=== PATIENT | female | born 1965 | race Caucasian/White ===

== ENCOUNTER 2024-04-28 12:47 | Outpatient (OUT) | payer BC, SELFPAY | END 2024-04-28 12:48 | disposition home or self-care (01) | LOC: CARD 12:51 | PROVIDERS: PCP Family Medicine; Visit Provider Family Medicine | DX: R00.2 Palpitations (principal); R55 Syncope and collapse | CPT/HCPCS: 93242 ==

== ENCOUNTER 2025-01-06 16:34 | Emergency (ER) | payer BC, SELFPAY ==
--- OUTSIDE RECORDS SUMMARY | 2025-01-06 16:43 | XMS_ITS | CCD ---
Author Organization [facility] Care Team Providers Care Cena Name Role Phone VALARIE WEISS Referring Unavailable KOFFI SEVERINO Primary Care Unavailable Bryan Georges Attending Unavailable Bryan Georges Admitting Unavailable JULIANNA ., DR SANTILLAN Consulting Unavailable HAY ., DR SANTILLAN Attending Unavailable HEMEYER ., DR WREN Primary Care Unavailable HAY ., DR SANTILLAN Admitting Unavailable ASHLY DUNCAN Consulting Unavailable MERE ., DR WREN Admitting Unavailable MERE ., DR WREN Primary Care Unavailable HEMEYER ., DR WREN Consulting Unavailable HEMEYER ., DR WREN Attending Unavailable [place], DR ABRAHAN Mitchell Consulting Unavailable Diamond Mayes Unavailable Mona Bolivar Unavailable KOFFI SEVERINO Primary Care Physician Unavail able KOFFI SEVERINO Referring Unavailable Jak Dixon Attending UnavailJak Perez Admitting UnavailMD Koffi Larson Primary Care Provider DERICK Bonner Attending Provider Cristel Bonner Admitting Unavailable Cristel Bonner Attending Unavailable Koffi Severino Primary Care Unavailable Koffi Severino MD Unavailable Koffi Severino MD Primary Care Provider Koffi Severino MD Unavailable [phone] Koffi Severino MD Primary Care Provider Koffi Severino MD Unavailable Koffi Seevrino MD Primary Care Provider KOFFI SEVERINO Attending Unavailable KOFFI SEVERINO Referring Unavailable KOFFI SEVERINO Referring Unavailable KOFFI SEVERINO Attending Unavailable KOFFI SEVERINO Attending Unavailable KOFFI SEVERINO Referring Unavailable KOFFI SEVERINO Attending Unavailable KOFFI SEVERINO Attending Unavailable KOFFI SEVERINO Attending Unavailable KOFFI SEVERINO Attending Unavailable Allergies Allergy Classification Reported Allergen(s) Allergy Type Date of Onset Reaction(s) Facility (2 sources) ceFAZolin; Translations: [Ancef] Drug Allergy 3 [facility] Repository (1 source) moxifloxacin Drug Allergy 3 [facility] Repository (1 source) Sulfamethoxazole / Trimethoprim Drug Allergy 3 [facility] Repository (19 sources) ceFAZolin; Translations: [cefazolin] Drug Allergy 7 Unknown (qualifier value) [facility] (20 sources) moxifloxacin; Translations: [moxifloxacin] Drug Allergy 7 anaphylaxis, Weal (disorder) [facility] (17 sources) Sulfamethoxazole / Trimethoprim; Translations: [sulfamethoxazole-tr imethoprim] Drug Allergy 7 hives, Weal (disorder) [facility] (1 source) Sulfamethoxazole / Trimethoprim; Translations: [Bactrim] Drug Allergy [facility] Repository (16 sources) Sulfamethoxazole; Translations: [sulfamethoxazole] Drug Allergy 2 [facility] (16 sources) Trimethoprim; Translations: [trimethoprim] Drug Allergy 2 [facility] (1 source) ceFAZolin Drug Allergy 4 [facility] Repository (1 source) moxifloxacin Drug Allergy 4 [facility] Repository (5 sources) metFORMIN Drug Allergy 4 [facility] Medications Current Medications Medication Drug Class(es) Dates Sig (Normalized) Sig (Original) Albuterol (18 sources) beta2-Adrenergic Agonist Start: 07-04-2024 Albuterol Sulfate Active 2 INH INHALATION EVERY 4-6 HOURS 6.7 14 July 04, 2024 12:00am Start: 06-12-2024 albuterol Refi lls(s) 0 Start Date: 06/12/24 Status: Ordered Start: 11-23-2023 take 2 puff(s) by in halation four times daily as needed Albuterol Sulfate HFA 108 (90 Base) MCG/ACT 2 puffs Inhalation 4 times a day prn Nov, Active Start: 06-07-2022 albuterol HFA 90 mcg/act inhaler Inhale 2 puffs in the morning and 2 puffs at noon and 2 puffs in the evening and 2 puffs before bedtime. 2 puffs as needed 4 times a day. 06/07/2022 Active ALPRAZolam 0.5 mg oral tablet (17 sources) Benzodiazepine Start: 04-25-2023 ALPRAZolam (Xa nax) 0.5 MG tablet Indications: Anxiety Take 1 tablet (0.5 mg) by mouth as needed at bedtime for anxiety (anxiety). 30 tablet 04/25/2023 Active amLODIPine 10 mg oral tablet (20 sources) Dihydropyridine Calcium Channel Cesilia Start: 07-04-2024 Amlodipine Active MG PO July 04, 2024 12:00am Start: 04-22-2024 End: 04-19-2025 take 1 tablet by mouth once daily amLODIPine (Norvasc) 10 MG tablet Indications: Benign essential HTN (CMS/HCC) Take 1 tablet (10 mg) by mouth Daily 90 tablet 1 10/21/2024 04/19/2025 Active amLODIPine Besyl ate 10 MG Oral for 90 Days Active aspirin 81 mg delayed release oral tablet (15 sources) Platelet Aggregation Inhibitor, Nonsteroidal Anti-inflammatory Drug Start: 06-12-2024 take 1 tablet by mouth once daily aspirin 81 mg Oral EC Tab 81 mg = 1 tab(s), Oral, Daily, # 30 tab(s), Refills(s) 0 Start Date: 06/12/24 Status: Ordered take 1 tablet by mouth three ashlyn es weekly aspirin 81 MG EC tablet Take 81 mg by mouth 3 (three) times a week. Active azelastine hydrochloride 0.137 mg/actuat metered dose nasal spray (9 sources) Histamine-1 Receptor Antagonist Start: 07-22-2024 End: 07-22-2025 take 1 spray(s) nasal route in the morning azelastine (Astelin) 0.1 % nasal spray Indications: Eustachian tube dysfunction, bilateral Administer 1 spray into each nostril in the morning and 1 spray before bedtime. Use in each nostril as directed. 30 mL 07/22/2024 07/22/2025 Active Calcium (2 sources) Phosphate Binder, Calcium Start: 06-12-2024 calcium (as carbonate) 500 mg oral tablet Refills(s) 0 Start Date: 06/12/24 Status: Ordered calcium citrate 1040 mg oral tablet (13 sources) take 1 tablet by mouth twice daily in the morning calcium citrate 1040 MG tablet Take 250 mg by mouth in the morning and 250 mg before bedtime. 1 tablet two times daily, orally. Active cholecalciferol 0.25 mg oral tablet (13 sources) Vitamin D take 1 tablet by mouth in the morning cholecalciferol (Vitamin D-3) 250 MCG (72450 UT) tablet Take 10,000 Units by mouth in the morning. Active diphenhydrAMINE hydrochloride 25 mg oral tablet (1 source) Histamine-1 Receptor Antagonist take 1 tablet by mouth every twenty-four hours Benadryl Allergy 25 MG 1 tablet at bedtime as needed Orally Once a day Active esomeprazole 20 mg delayed release oral capsule (13 sources) Proton Pump Inhibitor take 2 capsules by mouth before mealtime esomeprazole (NexIUM) [address] capsule Take 40 mg by mouth in the morning. Take before meals. Do not open capsule.. Active Fluocinonide (12 sources) Corticosteroid Start: 06-12-2024 fluocinonide Top 0.05% Crm 15 gram Refill(s) 0 Start Date: 06/12/24 Status: Ordered Start: 10-30-2023 End: 10-29-2024 fluocinonide (Lidex) 0.05 % cream Indications: Eczema of both hands Apply topically 2 (two) times a day 60 g 1 10/30/2023 10/29/2024 Active gabapentin 300 mg oral capsule (15 sources) Anti-epileptic Agent Start: 04-01-2024 gabapenti n (Neurontin) 300 MG capsule Indications: Right sided sciatica Take 1-2 capsules nightly 60 capsule 04/01/2024 Active gemfibrozil 600 mg oral tablet (20 sources) Peroxisome Proliferator Receptor alpha Agonist Start: 07-04-2024 Gemfibrozil Activ e MG PO July 04, 2024 12:00am Start: 04-22-2024 End: 04-19-2025 take 1 tablet by mouth in the morning gemfibrozil (Lopid) 600 MG tablet Indications: Mixed dyslipidemia (CMS/HCC) Take 1 tablet (600 mg) by mouth in the morning and 1 tablet (600 mg) before bedtime. 180 tablet 1 10/21/2024 04/19/2025 Active Gemfibrozil 600 MG 1 tablet 30 minutes before morning and evening meals Orally Twice a day for 90 days Active hydrocortisone 10 mg/ml / neomycin 3.5 mg/ml / polymyxin b 50049 unt/ml otic suspension (6 sources) Aminoglycoside Antibacterial, Polymyxin-class Antibacterial, Corticosteroid Start: 07-22-2024 End: 10-21-2024 fsozjzzy-aukepikqt-acphpufxr isone (Cortisporin) 3.5-43762-1 otic suspension Indications: Infective Otitis Externa Apply 3 drops to affected ear 3 times daily for 7 days 10 mL 07/22/2024 10/21/2024 Discontinued (Therapy completed) lisinopril 40 mg oral tablet (20 sources) Angiotensin Converting Enzyme Inhibitor Start: 10-21-2024 take 1 tablet by mouth once daily lisinopril 40 MG tablet Indications: Benign essential HTN (CMS/HCC) Take 1 tablet (40 mg) by mouth Daily 90 tablet 1 10/21/2024 Active Start: 07-23-2024 take 1 tablet by kurtis th once daily lisinopril 40 MG tablet Indications: Benign essential HTN (CMS/HCC) TAKE 1 TABLET BY MOUTH ONCE DAILY SAME TIME EACH DAY 90 tablet 1 07/23/2024 Active Start: 07-04-2024 Lisinopril Act leigha MG PO July 04, 2024 12:00am Start: 04-22-2024 End: 10-21-2024 take 1 tablet by mouth once daily lisinopril 40 MG tablet Indications: Benign essential HTN (CMS/HCC) Take 1 tablet (40 mg) by mouth 1 (one) time each day at the same time 90 tablet 1 07/22/2024 07/23/2024 Discontinued take 1 tablet by kurtis th once daily Lisinopril 40 MG take 1 tablet by mouth once daily Oral for 90 Days Active magnesium oxide 400 mg oral tablet (15 sources) Start: 06-12-2024 magnesium oxid e 400 mg Tab Refills(s) 0 Start Date: 06/12/24 Status: Ordered metFORMIN hydrochloride 500 mg oral tablet (18 sources) Biguanide Start: 07-22-2024 End: 10-21-2024 take 1 tablet by mouth in the morning metFORMIN (Glucophage) 1000 MG tablet Indications: Type 2 diabetes mellitus with hyperglycemia, without long-term current use of insulin (CMS/HCC) Take 1 tablet (1,000 mg) by mouth in the morning and 1 tablet (1,000 mg) in the evening. Take with meals. 60 tablet 07/22/2024 10/21/2024 Discontinued (Therapy completed) Start: 07-22-2024 End: 10-21-2024 take 1 tablet by mouth in the morning metFORMIN (Glucophage) 500 MG tablet Indications: Type 2 diabetes mellitus with hyperglycemia, without long-term current use of insulin (CMS/HCC) Take 1 tablet (500 mg) by mouth in the morning and 1 tablet (500 mg) in the evening. Take before meals. 60 tablet 07/22/2024 10/21/2024 Discontinued (Therapy completed) Start: 07-22-2024 End: 10-21-2024 take 1 tablet by mouth in the morning metFORMIN (Glucophage) 850 MG tablet Indications: Type 2 diabetes mellitus with hyperglycemia, without long-term current use of insulin (CMS/HCC) Take 1 tablet (850 mg) by mouth in the morning and 1 tablet (850 mg) in the evening. Take before meals. 60 tablet 07/22/2024 10/21/2024 Discontinued (Therapy completed) methylPREDNISolone 4 mg oral tablet (7 sources) Corticosteroid Start: 07-04-2024 End: 07-22-2024 methylPREDNISolone (Medrol Dospak) 4 MG tablets Take 4 mg by mouth 07/04/2024 Active Start: 08-15-2023 methylPREDNISo lone 4 MG as directed Orally for daily dose take half with breakfast, half with dinner for 6 days Jul, Active metoprolol tartrate 100 mg oral tablet (20 sources) beta-Adrenergic Cesilia Start: 07-04-2024 Metopr olol Tartrate Active MG PO July 04, 2024 12:00am Start: 04-22-2024 End: 04-19-2025 take 1 tablet by mouth in the morning metoprolol tartrate (Lopressor) 100 MG tablet Indications: Benign essential HTN (CMS/HCC) Take 1 tablet (100 mg) by mouth in the morning and 1 tablet (100 mg) before bedtime. 180 tablet 1 10/21/2024 04/19/2025 Active take 1 tablet by kurtis th every twelve hours Metoprolol Tartrate 100 MG 1 tablet with food Orally Twice a day for 90 days Active omeprazole 20 mg delayed release oral capsule (2 sources) Proton Pump Inhibitor Start: 06-12-2024 omeprazole 20 mg Cap-DR Refills(s) 0 Start Date: 06/12/24 Status: Ordered pioglitazone 30 mg oral tablet (5 sources) Peroxisome Proliferator Receptor alpha Agonist, Peroxisome Proliferator Receptor gamma Agonist, Thiazolidinedione Start: 10-21-2024 End: 01-19-2025 take 1 tablet by mouth once daily pioglitazone (Actos) 30 MG tablet Indications: Type 2 diabetes mellitus with hyperglycemia, without long-term current use of insulin (CMS/HCC) Take 1 tablet (30 mg) by mouth Daily 90 tablet 10/21/2024 01/19/2025 Active potassium chloride 20 meq extended release oral tablet (2 sources) take 1 tablet by mouth every twenty-four hours Potassium Chloride ER 20 MEQ 1 tablet with food Orally Once a day for 90 days Active predniSONE 20 mg oral tablet (1 source) Start: 11-23-2023 take 1 tablet by mouth every twelve hours predniSONE 20 MG 1 tablet Orally bid for 5 day(s) Nov, Active spironolactone 25 mg oral tablet (20 sources) Aldosterone Antagonist Start: 07-04-2024 Spironolactone Active MG PO July 04, 2024 12:00am Start: 04-22-2024 End: 04-19-2025 take 1 tablet by mouth in the morning spironolactone (Aldactone) 25 MG tablet Indications: Benign essential HTN (CMS/HCC) Take 1 tablet (25 mg) by mouth in the morning and 1 tablet (25 mg) before bedtime. 180 tablet 1 10/21/2024 04/19/2025 Active take 1 tablet by kurtis th every twenty-four hours Spironolactone 25 MG 1 tablet Orally Once a day for 90 days Active sucralfate 1000 mg oral tablet (15 sources) Aluminum Complex Start: 06-12-2024 sucralfate 1 g Tab Refills(s) 0 Start Date: 06/12/24 Status: Ordered Start: 10-30-2023 sucralfate (Ca rafate) 1 g tablet Indications: Gastroesophageal reflux disease without esophagitis Dissolve 1 tablet in 2 oz water. Take 30 minutes before meals 3 times daily and at bedtime 120 tablet 10/30/2023 Active valACYclovir 1000 mg oral tablet (1 source) Herpesvirus Nucleoside Analog DNA Polymerase Inhibitor, Herpes Simplex Virus Nucleoside Analog DNA Polymerase Inhibitor, Herpes Zoster Virus Nucleoside Analog DNA Polymerase Inhibitor Start: 08-15-2023 take 2 tablets by mouth once valACYclovir HCl 1 GM 2 tablet Orally once for 1 days Jul, Active Vitamin D (2 sources) Start: 06-12-2024 Vitamin D Refills(s) 0 Start Date: 06/12/24 Status: Ordered Completed/Discontinued Medications Medication Drug Class(es) Dates Sig (Normalized) Sig (Original) azithromycin 250 mg oral tablet (6 sources) Macrolide Antimicrobial Start: 07-04-2024 End: 07-22-2024 take 1 tablet by mouth once daily azithromycin (Zithromax) 250 MG tablet Take 250 mg by mouth Daily 07/04/2024 07/22/2024 Discontinued (Therapy completed) Start: 07-04-2024 Azithromycin A ctive 0 PO .COMPLEX July 04, 2024 12:00am For 250 mg dose pack: take 500 mg today (day 1), then 250 mg for 4 days (days 2-5) PO clarithromycin 500 mg oral tablet (2 sources) Macrolide Antimicrobial Start: 11-30-2024 End: 12-07-2024 take 1 tablet by mouth in the morning clarithromycin (Biaxin) 500 MG tablet Indications: Bronchitis Take 1 tablet (500 mg) by mouth in the morning and 1 tablet (500 mg) before bedtime. Do all this for 7 days. 14 tablet 11/30/2024 12/07/2024 homatropine methylbromide 0.3 mg/ml / HYDROcodone bitartrate 1 mg/ml oral solution (7 sources) Opioid Agonist, Cholinergic Muscarinic Agonist Start: 11-30-2024 End: 12-07-2024 HYDROcodone Bit-Homatrop MBr (Hydromet) 5-1.5 MG/5ML solution Indications: Cough Take 5 mL by mouth 4 (four) times a day as needed (cough) for up to 7 days 120 mL 11/30/2024 12/07/2024 Start: 07-04-2024 Hydrocodone-Ho matropine Active ML PO July 04, 2024 12:00am Start: 07-02-2024 End: 07-09-2024 HYDROcodone Bit-Homatrop MBr (Hydromet) 5-1.5 MG/5ML solution Indications: Cough Take 5 mL by mouth 4 (four) times a day as needed (cough) for up to 7 days 120 mL 07/02/2024 07/09/2024 Problems Active Problems Problem Classification Problem Date Documented Date Episodic/Chronic Anxiety disorders (13 sources) Panic disorder without agoraphobia; Translations: [Panic disorder [episodic paroxysmal anxiety]] Onset: 04-25-2023 04-25-2023 Chronic Cardiac and circulatory congenital anomalies (1 source) Atrial septal defect; Translations: [Atrial septal defect] Onset: 12-04-2018 Chronic Cardiac dysrhythmias (13 sources) Tachycardia-bradycar jordan; Translations: [Sick sinus syndrome] Onset: 05-14-2024 05-14-2024 Chronic Chronic obstructive pulmonary disease and bronchiectasis (6 sources) Bronchitis; Translations: [Bronchitis, not specified as acute or chronic] 07-04-2024 Episodic Diabetes mellitus with complications (20 sources) Hyperglycemia due to type 2 diabetes mellitus; Translations: [Type 2 diabetes mellitus with hyperglycemia] Onset: 05-17-2021 Resolved: 04-09-2024 04-25-2023 Chronic Disorders of lipid metabolism (20 sources) Hyperlipidemia, unspecified; Translations: [Dyslipidemia] Onset: 04-18-2017 Resolved: 04-09-2024 04-25-2023 Chronic E Codes: Struck by; against (1 source) Walked into wall, initial encounter; Translations: [WALKED INTO WALL INITIAL ENCOUNTER] Onset: 04-12-2023 Episodic Esophageal disorders (20 sources) Gastro-esophageal reflux disease without esophagitis; Translations: [Gastroesophageal reflux disease without esophagitis] Onset: 07-17-2017 04-25-2023 Chronic Essential hypertension (19 sources) Essential (primary) hypertension; Translations: [Benign essential hypertension] Onset: 04-12-2023 04-25-2023 Chronic Genitourinary congenital anomalies (13 sources) Congenital stricture of urethra; Translations: [Congenital stricture of urethra] Onset: 04-25-2023 04-25-2023 Chronic Malaise and fatigue (13 sources) Fatigue; Translations: [Chronic fatigue, unspecified] Onset: 04-25-2023 04-25-2023 Chronic Mood disorders (13 sources) Severe recurrent major depression without psychotic features; Translations: [Major depressive disorder, recurrent severe without psychotic features] Onset: 04-25-2023 04-25-2023 Chronic Nutritional deficiencies (13 sources) Vitamin D deficiency; Translations: [Vitamin D deficiency, unspecified] Onset: 04-25-2023 04-25-2023 Chronic Other aftercare (1 source) 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; Translations: [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 ASPIRIN] Onset: 04-12-2023 Episodic Other aftercare (1 source) Other intermission coordinator (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 therapy; Translations: [OTH COAL DUMPING EQUIPMENT OPERATOR CURRENT DRUG THERAPY] Onset: 04-12-2023 Episodic Other aftercare (19 sources) Polypharmacy ; Translations: [Other care home (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 therapy] Onset: 12-04-2020 10-29-2023 Episodic Other connective tissue disease (3 sources) Pain in right hand; Translations: [PAIN IN RIGHT HAND] Onset: 04-11-2023 Episodic Other ear and sense organ disorders (2 sources) Acute infective otitis externa; Translations: [Other infective otitis externa, left ear] 07-22-2024 Episodic Other lower respiratory disease (2 sources) Cough; Translations: [Acute cough] 11-30-2024 Episodic Other nervous system disorders (13 sources) Piriformis syndrome; Translations: [Lesion of sciatic nerve, unspecified lower limb] Onset: 04-25-2023 04-25-2023 Chronic Other nutritional; endocrine; and metabolic disorders (13 sources) Metabolic syndrome X; Translations: [Metabolic syndrome] Onset: 04-25-2023 04-25-2023 Chronic Other nutritional; endocrine; and metabolic disorders (17 sources) Obesity caused by energy imbalance; Translations: [Other obesity due to excess calories] Onset: 04-25-2023 04-25-2023 Chronic Otitis media and related conditions (2 sources) Dysfunction of bilateral eustachian tubes; Translations: [Unspecified Eustachian tube disorder, bilateral] 07-22-2024 Episodic Sprains and strains (1 source) Unspecified sprain of right wrist, initial encounter; Translations: [UNSPECIFIED SPRAIN RT WRIST INITIAL] Onset: 04-12-2023 Episodic Substance-related disorders (20 sources) Nicotine dependence, cigarettes, uncomplicated; Translations: [Cigarette smoker ] Onset: 04-12-2023 04-25-2023 Chronic Superficial injury; contusion (2 sources) Contusion of right hand, initial encounter; Translations: [Abrasion of right hand, initial encounter] Onset: 04-12-2023 Episodic Transient cerebral ischemia (1 source) Transient cerebral ischemic attack, unspecified; Translations: [Transient cerebral ischemic attack, unspecified] Onset: 12-04-2018 Chronic Unclassified (1 source) Cough, unspecified; Translations: [Cough, unspecified] Onset: 07-04-2024 Viral infection (1 source) Herpesviral vesicular dermatitis Episodic Past or Other Problems Problem Classification Problem Date Documented Da te Episodic/Chronic Abdominal hernia (13 sources) Hiatal hernia; Translations: [Diaphragmatic hernia without obstruction or gangrene] Onset: 04-25-2023 04-25-2023 Episodic Fluid and electrolyte disorders (15 sources) Hypokalemia; Translations: [Hypokalemia] Onset: 04-25-2023 04-25-2023 Episodic Other bone disease and musculoskeletal deformities (13 sources) Osteopenia; Translations: [Other specified disorders of bone density and structure, unspecified site] Onset: 04-25-2023 04-25-2023 Episodic Other connective tissue disease (13 sources) Calcaneal spur of left foot; Translations: [Calcaneal spur, left foot] Onset: 04-25-2023 04-25-2023 Episodic Other lower respiratory disease (4 sources) Cough; Translations: [Cough] 07-04-2024 Episodic Other screening for suspected conditions (not mental disorders or infectious disease) (4 sources) Encounter for screening mammogram for malignant neoplasm of breast; Translations: [ENC SCR MAMMO MALIG NEOPLASM BREAST] Onset: 04-27-2022 Episodic Other upper respiratory infections (4 sources) Acute sinusitis, unspecified; Translations: [Acute pharyngitis, unspecified] Episodic Residual codes; unclassified (1 source) Family history of malignant neoplasm of digestive organs; Translations: [FAM DAVE MALIG NEOPLASM DIGESTIV ORGN] Onset: 05-03-2022 Episodic Unclassified (2 sources) Suspected COVID-19 virus infection Z20.822 Unclassified (1 source) Acute cough R05.1 Viral infection (1 source) COVID-19 Results Test Name Value Interpretation Reference Range Facility HEMOGLOBIN A1con 10-21-2024 HEMOGLOBIN A1c 7.4 % of total Hgb High <5.7 Qu est Diagnostics Comment on above: Order Comment: FASTI NG:NO FASTING: NO Result Comment: For someone without known diabetes, a hemoglobin A1c value of 6.5% or greater indicates that they may have diabetes and this should be confirmed with a follow-up test. For someone with known diabetes, a value <7% indicates that their diabetes is well controlled and a value greater than or equal to 7% indicates suboptimal control. A1c targets should be individualized based on duration of diabetes, age, comorbid conditions, and other considerations. Currently, no consensus exists regarding use of hemoglobin A1c for diagnosis of diabetes for children. Performed By: #### [id number] #### [facility] [address], [address] [place] [address] Fiscal Specialist: Conrado Pace MD No Panel InformationOrdered By: Cristel Loja on 07-04-2024 Quick Strep (POC) [facility] XR chest 2V*on 07-04-2024 XR chest 2V* [facility] [place] [address] XRay Report Signed Patient: Lula Yo MR#: [id number] 15 : 1965 Acct:[id number] Age/Sex: 58 / F ADM Date: 07/04/24 Loc: [facility]DUCLY [facility]: [facility] Attending Dr: Cristel Loja - DERICK Copies to: Cristel Loja APRN Ordering Provider: Cristel Loja APRN Date of Service: 07/04/24 XR/XR chest 2V*: COUGH XR chest 2V* 07/04/2024 1:46 PM SIGNS AND SYMPTOMS: Productive cough, fatigue, chest congestion, upper back pain PROTOCOL: Frontal and lateral radiograph of the chest COMPARISON: None FINDINGS: The trachea is midline. The heart and mediastinal structures are within normal limits. The lung parenchyma is clear. The bony thorax is intact. Degenerative changes are noted in the thoracic spine. XR/XR chest 2V* IMPRESSION: No acute cardiopulmonary pathology. Impression dictated by: Jag Ramirez M.D.07/04/2024 2:11 PM Dictation Location: [place] [address] Transcribed By: IMELDA 07/04/241410 Dictated By: Jag Ramirez II, MD 07/04/241410 Signed By: 07/04/24 141 Normal [facility] Physician [facility] BI MAMMOGRAM SCREENING BILAT [facility] 06-16-2024 BI MAMMOGRAM SCREENING BILATERAL This is a summary report. The complete report is available in the patient's medical record. If you cannot access the medical record, please contact the sending organization for a detailed fax or copy. EXAMINATION: BI MAMMOGRAM SCREENING BILATERAL CLINICAL HISTORY:screening mammogram COMPARISON: May 01, 2023. RESULT: Density: Almost entirely fatty [1] Overall appearance is stable. Typically benign calcifications. There is no suspicious mass, asymmetry, architectural distortion, or calcification IMPRESSION: BIRADS 2 - Benign. Follow-up: Routine Screening Mamm Board Certified Radiologists. Accredited by the ACR and FDA. MAMMOGRAPHY IS VERY IMPORTANT TO YOUR HEALTH. THE [employer] GUIDELINES RECOMMEND THAT WOMEN 40 YEARS OF AGE AND OLDER SHOULD HAVE A MAMMOGRAM EVERY YEAR. A REMINDER LETTER WILL BE SENT AT THE APPROPRIATE TIME. THIS FACILITY UTILIZES A REMINDER SYSTEM TO ENSURE ALL PATIENTS RECEIVE REMINDER NOTIFICATIONS AT THE APPROPRIATE TIME BASED ON THE RECOMMENDATIONS OF THIS EXAM. THIS INCLUDES REMINDERS FOR ROUTINE SCREENING MAMMOGRAMS, DIAGNOSTIC MAMMOGRAMS IN WHICH THE PATIENT IS ASKED TO RETURN FOR ADDITIONAL VIEWS, OR OTHER BREAST IMAGING INTERVENTIONS WHEN APPROPRIATE. THE PATIENT WILL BE PLACED IN THE APPROPRIATE REMINDER SYSTEM INCLUDING A REMINDER AT THE APPROPRIATE TIME FOR ANY PENDING ADDITIONAL VIEWS. TRANSCRIBED BY: ELECTRONICALLY SIGNED BY: Claudy Salinas MD Normal Not Available [facility] and Vascular Office/Cl in Noteon 06-13-2024 [facility] V[facility] Office/Clinic Note [facility] V[facility] Office/Clinic Note Chief Complaint New patient- Palpitations, Tachycardia History of Present Illness The patient presents for evaluation of palpitations. The patient has been utilizing a heart monitor for several days due to persistent palpitations, a condition she has been managing for several years. She has prediabetes. She experiences occasional episodes of lightheadedness, not even once a week. A stress test and echocardiogram were conducted several years ago, revealing a diagnosis of PFO. She denies any history of stroke. She experiences occasional shortness of breath with exertion, particularly when ascending stairs, and occasional chest tightness with exertion as well as at rest. She smokes about a pack a day. She is currently on metoprolol for hypertension management and gemfibrozil for high triglycerides management. Review of Systems PHQ Score Initial Depression Screen Score: 0 SCORE Constitutional: no fever, no sweats, no weakness Skin: no rash, no lesions, no bruising/petechiae ENMT: no sore throat, no congestion, no hoarseness Respiratory: Positive for shortness of breath with exertion. No cough, no orthopnea, no wheezing Cardiovascular: Positive for occasional chest tightness with exertion. No chest pain, no palpitations, no edema Gastrointestinal: no nausea, no vomiting, no diarrhea, no GI bleeding Genitourinary: no anuria/oliguria no hematuria Musculoskeletal: no back pain, no trauma Neurologic: Positive for lightheadedness. No headache, no numbness, no weakness Psychiatric: no sleeping problems, no irritability, no anxiety/depression. Heme/Lymph: no bleeding tendency, no bruising tendency Allergy/Immunologic : no recurrent infections, no impaired immunity Additional ROS info: Except as noted in the above Review of Systems and in the History of Present Illness all other systems have been reviewed and are negative or noncontributory Physical Exam Vitals & Measurements HR: 60(Peripheral) RR: 18 BP: 132/76 SpO2: 96% HT: 66 in HT: 168 cm WT: 97.4 kg WT: 214.28 lb BMI: 34.51 General: alert, no acute distress Skin: warm, dry intact Head: atraumatic, normocephalic Neck: trachea midline, no JVD, no bruit Eye: normal conjunctiva, sclera clear ENMT: oral mucosa moist Cardiovascular: regular rate and rhythm, no murmur, normal peripheral perfusion Respiratory: lungs CTA, respirations non labored Chest wall: no deformity. Gastrointestinal: soft, non-distended, no tenderness, no guarding. Back: no tenderness, normal ROM, normal alignment. Extremities: no edema, no deformity, no trauma Neurological: oriented x 4, LOC appropriate for age, sensation equal & normal bilaterally, speech normal Psychiatric: cooperative, affect appropriate for age, normal judgement, normal psychiatric thoughts. Assessment/Plan Palpitations. The patient's Holter monitor results were not overly concerning, with an average heart rate of 62. Notably, she experienced 13 instances of tachycardia, with one episode lasting 18 seconds. An echocardiogram and a treadmill nuclear stress test have been ordered. The patient has been advised to cease smoking. A follow-up appointment is scheduled for 6 weeks from now. ATTESTATION: Documentation services were performed after patient or guardian consented to allow [employer] to record this visit. [employer] environmental air specialist and provider reviewed before signing. TANIA: Romaine Ramirez Portions of this record may have been created with voice recognition artificial intelligence software, specifically [employer], [email or web address] and or [employer] Substitutions may have occurred due to the inherent limitations of voice recognition and artificial intelligence software. Follow-up No qualifying data available Problem List/Past Medical History Ongoing No qualifying data Historical No qualifying data Procedure/Surgical History Carpal tunnel, delivery, Foot, Gall bladder, Hernia, Tonsillectomy. Medications albuterol amLODIPine 10 mg Tab aspirin 81 mg Oral EC Tab, 81 mg= 1 tab(s), Oral, Daily calcium (as carbonate) 500 mg oral tablet fluocinonide Top 0.05% Crm 15 gram gabapentin 300 mg Cap gemfibrozil 600 mg Tab lisinopril 40 mg Tab, 40 mg= 1 tab(s), Oral, Daily magnesium oxide 400 mg Tab metoprolol tartrate 100 mg Tab omeprazole 20 mg Cap-DR spironolactone 25 mg Tab, 25 mg= 1 tab(s), Oral, Daily sucralfate 1 g Tab Vitamin D Xanax 0.5 mg Tab, 0.5 mg= 1 tab(s), Oral, TID, PRN Allergies Ancef (Unknown) Bactrim (Hives) moxifloxacin (Swelling, Hives) Family History Diabetes mellitus type 2: Mother and Father. Glucoma: Father. Hypertension: Mother and Father. Pacemaker catheter: Mother. Parkinsons disease: Father. Normal [facility] Comment on above: Result Comment: Elec tronically Signed By: Zack WOODARDJak\.br\Date and Time Signed: 06/13/24 10:45 EDT\.br\Electronically Co-Signed By: Sarah Garcia\.br\Date and Time Co-Signed: 06/12/24 16:[address] ABDOMEN W IV CONTRASTon 0 02-20-2024 CT ABDOMEN W IV CONTRAST EXAMINATION: CT ABDOMEN W IV CONTRAST HISTORY: flank and abd pain, normal XR COMPARISON: None TECHNIQUE: Contiguous axial CT sections of the abdomen and pelvis were obtained after IV contrast administration of 100 mL of Iopamidol, Isovue-300. Sagittal and coronal reformats have been obtained. All CT scans at this facility use dose modulation, iterative reconstruction, and/or weight based dosing when appropriate to reduce radiation dose to as low as reasonably achievable. FINDINGS Lung bases:Visualized lung bases show no significant pathology Liver: There is diffuse decreased attenuation of the liver consistent with fatty infiltration, steatosis. There are no focal solid or cystic lesions. There is no intra or extrahepatic bile duct dilatation. Gallbladder: There are surgical clips in the gallbladder fossa. Spleen: There are no focal lesions or calcifications in the spleen. There is no splenomegaly Pancreas: The pancreas is normal in size and attenuation without focal lesions or dilatation of the pancreatic duct. Adrenal glands are negative. Kidneys: There are no solid renal lesions. There are prompt bilateral nephrograms after IV contrast administration with prompt excretion into nondilated collecting systems. There is no hydroureter. Bowel: There is no bowel dilatation or evidence of diverticulitis. Appendix: The appendix is unremarkable. Nodes: No lymphadenopathy. Aorta: There is no abdominal aortic aneurysm. Peritoneum: No free fluid or free air. Abdominal wall: The abdominal wall is intact. Bones :There are no acute osseous changes. Soft tissues: The soft tissues are unremarkable. IMPRESSION: No acute intra-abdominal changes. ELECTRONICALLY SIGNED BY: Kaden Nguyen MD Normal Not Available XR ABDOMEN 1 VIEWon 01-30-20 XR ABDOMEN 1 VIEW XR CHEST 2 VIEWS, XR ABDOMEN 1 VIEW : 01/30/2024 9:03 AM CLINICAL HISTORY: Right flank Pain up into right lower lung field. COMPARISON: None available. TECHNIQUE: ROUTINE FINDINGS: Chest x-ray no consolidating pneumonia, pneumothorax or pleural effusion is seen. The cardiac silhouette is within normal limits. Degenerative changes are seen in the dorsal spine. ABDOMEN: No dilated loops of bowel are seen on this examination. There is fecal material and bowel gas seen down to the pelvis. Surgical clips are seen in the right upper quadrant of the abdomen most likely representing cholecystectomy. No definitive calcifications are seen projecting over the right renal shadow. Projecting over the superior pole of the left renal shadow is a 3 to 4 mm density. Lateral to the superior pole of the kidney there our curvilinear calcifications. These could be in the spleen. In the pelvis there are rounded densities seen on the right and appear to have lucent centers. These are thought to be phleboliths. IMPRESSION: 1. NO ACUTE CARDIOPULMONARY PROCESS 2. THERE MAY BE A SMALL CALCIFICATION IN THE LEFT KIDNEY. NO DEFINITIVE CALCIFICATIONS SEEN PROJECTING OVER THE LEFT KIDNEY. THE BOWEL GAS PATTERN IS NONOBSTRUCTIVE, NONSPECIFIC ELECTRONICALLY SIGNED BY: Nathalia James, Normal Not Available XR CHEST 2 VIEWSon XR CHEST 2 VIEWS XR CHEST 2 VIEWS, XR ABDOMEN 1 VIEW : 01/30/2024 9:03 AM CLINICAL HISTORY: Right flank Pain up into right lower lung field. COMPARISON: None available. TECHNIQUE: ROUTINE FINDINGS: Chest x-ray no consolidating pneumonia, pneumothorax or pleural effusion is seen. The cardiac silhouette is within normal limits. Degenerative changes are seen in the dorsal spine. ABDOMEN: No dilated loops of bowel are seen on this examination. There is fecal material and bowel gas seen down to the pelvis. Surgical clips are seen in the right upper quadrant of the abdomen most likely representing cholecystectomy. No definitive calcifications are seen projecting over the right renal shadow. Projecting over the superior pole of the left renal shadow is a 3 to 4 mm density. Lateral to the superior pole of the kidney there our curvilinear calcifications. These could be in the spleen. In the pelvis there are rounded densities seen on the right and appear to have lucent centers. These are thought to be phleboliths. IMPRESSION: 1. NO ACUTE CARDIOPULMONARY PROCESS 2. THERE MAY BE A SMALL CALCIFICATION IN THE LEFT KIDNEY. NO DEFINITIVE CALCIFICATIONS SEEN PROJECTING OVER THE LEFT KIDNEY. THE BOWEL GAS PATTERN IS NONOBSTRUCTIVE, NONSPECIFIC ELECTRONICALLY SIGNED BY: Nathalia James, Normal Not Available COVID/FLU/RSV RT-PCRon 11-23 SARS-CoV-2 (COVID-19) RNA ALYSSA+probe Ql (Unsp spec) Positive [employer] Other COVID/FLU/RSV RT-PCR Negative [employer] Other COVID + FLU Quick Testingon 08-15-2023 SARS-CoV-2 (COVID-19) RNA ALYSSA+probe Ql (Unsp spec) Negative [employer] Other COVID + FLU Quick Testing Negative [employer] Other Quick Strepon 08-15-2023 S. pyogenes Org specific cx Ql (Throat) Negative [employer] Other Quick Strep [employer] Other XR HAND RT MIN 3Von 04-11-20 23 XR HAND RT MIN 3V EXAM: XR WRIST RT MIN 3 V, XR HAND RT MIN 3V HISTORY: Injury of right wrist COMPARISON: None. TECHNIQUE: 3 views of the right hand, 3 views of the right wrist are performed. FINDINGS: The bones appear slightly demineralized. There is no acute fracture. The bony structures are intact. There is mild joint space narrowing along the radial aspect of the wrist. Normal soft tissues. IMPRESSION: No acute bony abnormality. Electronically authenticated by: ASHLY DUNCAN Date: 2023-04-10 23:14 Normal [facility] 01-17-2023 L Specimen: [id number] Received: 01/17/23 Status: HIEU Quan Num: [id number] Spec Type: Surgical Subm Dr: Bryan Georges DO Tissues: A Colon Biopsy (ASCENDING BX) Procedures: HE/2, Gross/Micro L4 Age/ Patient Sex Location Account Attending Physician Lula Yo 57/F [place] [id number] Bryan Georges DO SPEC NUM: [id number] RECD: 01/17/23 STATUS: HIEU QUAN NUM: [id number] FARHAN: 01/17/23- [facility] DR: Bryan Georges DO ENTERED: 01/17/[address]: Dawson [facility] SPEC TYPE: Surgical DEPT: S ORDERED: HE/2, Gross/Micro L4 ORDERED: HE/2, Gross/Micro L4 Pathological Diagnosis Colon, ascending, lipoma, biopsy: - Polypoid benign colonic mucosa with submucosal lipoma. Clinical Information Family history of colon cancer Gross Description Received in formalin labeled with the patient's name, number and biopsy ascending colon lipoma are three fragments of soft enrique tissue averaging 0.2 cm. Entirely submitted in one cassette labeled A1. Microscopic Description Two glass slides with H E stained material have been examined. The microscopic findings support the above pathologic diagnosis. CPT Codes 01889 Specimen: [id number] Received: 01/17/23 Status: HIEU Avelina Num: [id number] Spec Type: Surgical Subm Dr: Bryan Georges DO Tissues: A Colon Biopsy (ASCENDING BX) Procedures: HE/Diane, Gross/Micro L4 Patient: Lula Yo [id number] (Continued) Signed (signatbrian e on file) Agus Estrada MD 01/18/23 1210 [facility] XR Foot Complete Left*on XR Foot Complete Left* HISTORY: Medial pain plantar surface FINDINGS: No displaced cortical or stress fracture. Subtle cortical irregularity 5th proximal phalangeal head, central IP joint articular communication possible fracture age indeterminate. Small to moderate size plantar and achilles calcaneal spurs. Normal Bohler's angle and subtalar joint. IMPRESSION: 1. 5th proximal phalangeal findings possible fracture, age indeterminate. 2. Calcaneal spurs, no displaced fracture. Report reported and signed by Claudy Salinas on 07/10/2022 [address] [facility] MG MAMM SCREEN 3D HARJINDER CADon 04-27-2022 MG MAMM SCREEN 3D HARJINDER CAD Patient: LULA YO Exam Date: 04/27/2022 : 1965 Gender:F Ordering : DR KOFFI SEVERINO . Admission #: [id number] Family : Order #: [id number] CLICK HERE TO VIEW EXAM RADIOLOGY REPORT PROCEDURE: MAMMOGRAM SCREENING 3D BILATERAL CAD COMPARISON: MG MAMM SCREEN HARJINDER W CAD, 11/06/2018. MG MAMM SCREEN 3D HARJINDER CAD, 02/09/2021. INDICATIONS: Screening mammography Calculator Name NCI Breast Cancer Risk Assessment Tool 5 Year Breast Cancer Risk 0.80% Lifetime Breast Cancer Risk 5.50% Personal Breast Cancer No Personal Ovarian Cancer No Treatments None Family Cancers Grandfather-materna l with colon cancer at age 58; Uncle-maternal with colon cancer at age 60; Uncle-paternal with colon cancer at age 58; Mother with skin cancer at age 76; Father with skin cancer at age 78. LOCATION: [facility] BREAST COMPOSITION: Scattered areas fibroglandular density. FINDINGS: DIAGNOSTIC CATEGORY 1--NEGATIVE. NO CHANGE FROM COMPARISON ASSESSMENT. Scattered benign-appearing calcifications are present. Scattered benign-appearing lymph nodes are present. RIGHT BREAST: No significant suspicious finding. LEFT BREAST: No significant suspicious finding. RECOMMENDATIONS: ROUTINE MAMMOGRAM AND CLINICAL EVALUATION IN 12 MONTHS. PLEASE NOTE: A NORMAL MAMMOGRAM DOES NOT EXCLUDE THE POSSIBILITY OF BREAST CANCER. A CLINICALLY SUSPICIOUS PALPABLE LUMP SHOULD BE BIOPSIED. Dictated by: Abrahan Ramos MD on 04/27/2022 at 14:18 Approved by: Abrahan Ramos MD on 04/27/2022 at 14:19 Normal [facility] Q - COMPREHENSIVE METABOLIC PANEL W/EGFRon 04-27-2022 Albumin [Mass/Vol] 4.5 g/dL Normal 3.6-5.[address] [facility] Comment on above: Order Comment: [facility] performed at: [facility], [address] [facility], [address] [place] [address], [address] [place] [address], Shipping Supervisor: Conrado Pace MD [facility] Date/Time: [facility] Results Received Date/Time: [facility] Reported Date/Time: FASTING: NO Performed By: #### 4 96X, 968T, [id number] #### [facility] Default [address] [place] [address] Albumin/Globulin [Mass ratio] 2.0 {ratio} Normal 1.0-2.[address] [facility] Comment on above: Order Comment: [facility] performed at: [facility], [address] [facility], [address] [place] [address], [address] [place] [address], Shipping Supervisor: Conrado Pace MD [facility] Date/Time: [facility] Results Received Date/Time: [facility] Reported Date/Time: FASTING: NO Performed By: #### 4 96X, 968T, [id number] #### [facility] [address] [place] [address] ALP [Catalytic activity/Vol] 70 U/L Normal 37-[address] [facility] Comment on above: Order Comment: [facility] performed at: [facility], [address] [facility], [address] [place] [address], [address] [place] [address], Shipping Supervisor: Conrado Pace MD [facility] Date/Time: [facility] Results Received Date/Time: [facility] Reported Date/Time: FASTING: NO Performed By: #### 4 96X, 968T, [id number] #### [facility] [address] [place] [address] ALT [Catalytic activity/Vol] 26 U/L Normal 6-[address] [facility] Comment on above: Order Comment: [facility] performed at: [facility], [address] [facility], [address] [place] [address], [address] [place] [address], Shipping Supervisor: Conrado Pace MD [facility] Date/Time: [facility] Results Received Date/Time: [facility] Reported Date/Time: FASTING: NO Performed By: #### 4 96X, 968T, [id number] #### [facility] [address] [place] [address] AST [Catalytic activity/Vol] 28 U/L Normal 10-35 [facility] Specialist Comment on above: Order Comment: [facility] performed at: [facility], [address] [facility], [address] [place] [address], [id number], Shipping Supervisor: Conrado Pace MD [facility] Date/Time: [facility] Results Received Date/Time: [facility] Reported Date/Time: FASTING: NO Performed By: #### 4 96X, 968T, [id number] #### [facility] [address] [place] [address] Bilirubin [Mass/Vol] 0.5 mg/dL Normal 0.2-1.2 [facility] Comment on above: Order Comment: [facility] performed at: [facility], [address] [facility], [address] [place] [address], [address] [place] [address], Shipping Supervisor: Conrado Pace MD [facility] Date/Time: [facility] Results Received Date/Time: [facility] Reported Date/Time: FASTING: NO Performed By: #### 4 96X, 968T, [id number] #### [facility] [address] [place] [address] BUN/CREA 15 NOT APPLICABLE Normal 6-22 [facility] Specialist Comment on above: Order Comment: [facility] performed at: [facility], [address] [place] , [address] [place] [address], [address] [place] [address], Shipping Supervisor: Conrado Pace MD [facility] Date/Time: [facility] Results Received Date/Time: [facility] Reported Date/Time: FASTING: NO Performed By: #### 4 96X, 968T, [id number] #### [facility] [address] [place] [address] Calcium [Mass/Vol] 9.6 mg/dL Normal 8.6-10.4 [facility] Comment on above: Order Comment: [facility] performed at: [facility], [address] [facility], [address] [place] [address], [address] [place] [address], Shipping Supervisor: Conrado Pace MD [facility] Date/Time: [facility] Results Received Date/Time: [facility] Reported Date/Time: FASTING: NO Performed By: #### 4 96X, 968T, [id number] #### [facility] [address] [place] [address] Chloride [Moles/Vol] 100 mmol/L Normal 98-110 [facility] Comment on above: Order Comment: [facility] performed at: [facility], [address] [facility], [address] [place] [address], [address] [place] [address], Shipping Supervisor: Conrado Pace MD [facility] Date/Time: [facility] Results Received Date/Time: [facility] Reported Date/Time: FASTING: NO Performed By: #### 4 96X, 968T, [id number] #### [facility] [address] [place] [address] CO2 [Moles/Vol] 29 mmol/L Normal 20-32 [facility] Comment on above: Order Comment: [facility] performed at: [facility], [address] [facility], [address] [place] [address], [address] [place] [address], Shipping Supervisor: Conrado Pace MD [facility] Date/Time: [facility] Results Received Date/Time: [facility] Reported Date/Time: FASTING: NO Performed By: #### 4 96X, 968T, [id number] #### [facility] [address] [place] [address] Creatinine [Mass/Vol] 0.71 mg/dL Normal 0.50-1.[address] [facility] [address] [facility] Comment on above: Order Comment: [facility] performed at: [facility], [address] [facility], [address] [place] [address], [address] [place] [address], Shipping Supervisor: Conrado Pace MD [facility] Date/Time: [facility] Results Received Date/Time: [facility] Reported Date/Time: FASTING: NO Result Comment: For patients >49 years of age, the reference limit for Creatinine is approximately 13% higher for people identified as -Botswan[place]. Performed By: #### 4 96X, 968T, [id number] #### [facility] Default [address] [place] [address] eGFRAA ([facility]) 111 mL/min/1.73m2 Normal > OR = [address] [facility] [address] Builder Comment on above: Order Comment: [facility] performed at: [facility], [address] [facility], [address] [place] [address], [address] [place] [address], Shipping Supervisor: Conrado Pace MD [facility] Date/Time: [facility] Results Received Date/Time: [facility] Reported Date/Time: FASTING: NO Performed By: #### 4 96X, 968T, [id number] #### [facility] [address] [place] [address] eGFRNAA ([facility]) 96 mL/min/1.73m2 Normal > OR = [address] [facility] [address] Builder Comment on above: Order Comment: [facility] performed at: [facility], [address] [facility], [address] [place] [address], [address] [place] [address], Shipping Supervisor: Conrado Pace MD [facility] Date/Time: [facility] Results Received Date/Time: [facility] Reported Date/Time: FASTING: NO Performed By: #### 4 96X, 968T, [id number] #### [facility] [address] [place] [address] Globulin (S) [Mass/Vol] 2.3 g/dL Normal 1.9-3.7 [facility] Specialist Comment on above: Order Comment: [facility] performed at: [facility], [address] [place] [address], [address] [place] [address], [address] [place] [address], Shipping Supervisor: Conrado Pace MD [facility] Date/Time: [facility] Results Received Date/Time: [facility] Reported Date/Time: FASTING: NO Performed By: #### 4 96X, 968T, [id number] #### [facility] [address] [place] [address] Glucose [Mass/Vol] 110 mg/dL Normal 65-139 [facility] Specialist Comment on above: Order Comment: [facility] performed at: [facility], [address] [place] [address], [address] [place] [address], [address] [place] [address], Shipping Supervisor: Conrado Pace MD [facility] Date/Time: [facility] Results Received Date/Time: [facility] Reported Date/Time: FASTING: NO Result Comment: Non-fasting reference interval For someone without known diabetes, a glucose value between 100 and 125 mg/dL is consistent with prediabetes and should be confirmed with a follow-up test. Performed By: #### 4 96X, 968T, [id number] #### [facility] [address] [place] [address] Potassium [Moles/Vol] 3.3 mmol/L Low 3.5-5.[address] [facility] [address] Builder Comment on above: Order Comment: [facility] performed at: [facility], [address] [place] [address], [address] [place] [address], [address] [place] [address], Shipping Supervisor: Conrado Pace MD [facility] Date/Time: [facility] Results Received Date/Time: [facility] Reported Date/Time: FASTING: NO Performed By: #### 4 96X, 968T, [id number] #### [facility] [address] [place] [address] Protein [Mass/Vol] 6.8 g/dL Normal 6.1-8.[address] Comment on above: Order Comment: [facility] performed at: [facility], [address] , [address] [place] [address], [address] [place] [address], Shipping Supervisor: Conrado Pace MD [facility] Collection Date/Time: [facility] Results Received Date/Time: [facility] Reported Date/Time: FASTING: NO Performed By: #### 4 96X, 968T, [id number] #### [facility] [address] [place] [address] Sodium [Moles/Vol] 139 mmol/L Normal 135-[address] Comment on above: Order Comment: [facility] performed at: [facility], [address] , [address] [place] [address], [address] [place] [address], Shipping Supervisor: Conrado Pace MD [facility] Date/Time: [facility] Results Received Date/Time: [facility] Reported Date/Time: FASTING: NO Performed By: #### 4 96X, 968T, [id number] #### [facility] [address] [place] [address] Urea nitrogen [Mass/Vol] 11 mg/dL Normal 7-[address] [facility] [address] [facility] Comment on above: Order Comment: [facility] performed at: [facility], [address] , [address] [place] [address], [address] [place] [address], Shipping Supervisor: Conrado Pace MD [facility] Date/Time: [facility] Results Received Date/Time: [facility] Reported Date/Time: FASTING: NO Performed By: #### 4 96X, 968T, [id number] #### [facility] [address] [place] [address] Q - HEMOGLOBIN A1Con 022 HEMOGLOBIN A1c 6.8 % of total Hgb High <5.[address] Comment on above: Order Comment: [facility] performed at: [facility], [address] [place] [address], [address] [place] [address], [phone], Shipping Supervisor: Conrado Pace MD [facility] Collection Date/Time: [facility] Results Received Date/Time: [facility] Reported Date/Time: FASTING: NO Result Comment: For someone without known diabetes, a hemoglobin A1c value of 6.5% or greater indicates that they may have diabetes and this should be confirmed with a follow-up test. For someone with known diabetes, a value <7% indicates that their diabetes is well controlled and a value greater than or equal to 7% indicates suboptimal control. A1c targets should be individualized based on duration of diabetes, age, comorbid conditions, and other considerations. Currently, no consensus exists regarding use of hemoglobin A1c for diagnosis of diabetes for children. Performed By: #### 4 96X, 968T, [id number] #### [facility] [address] [place] [address] Q - Lipid Panelon 04-27-2022 Cholesterol [Mass/Vol] 168 mg/dL Normal <[address] [facility] [address] Builder Comment on above: Order Comment: [facility] performed at: [facility], [address] [place] [address], [address] [place] [address], [id number], Shipping Supervisor: Conrado Pace MD [facility] Date/Time: [id number] [facility] Results Received Date/Time: [facility] Reported Date/Time: FASTING: NO Performed By: #### 4 96X, 968T, [id number] #### [facility] [address] [place] [address] Cholesterol in HDL [Mass/Vol] 43 mg/dL Low > OR = [address] [facility] Comment on above: Order Comment: [facility] performed at: [facility], [address] , [address] [place], [phone], Shipping Supervisor: Conrado Pace MD [facility] Collection Date/Time: [facility] Results Received Date/Time: [facility] Reported Date/Time: FASTING: NO Performed By: #### 4 96X, 968T, [id number] #### [facility] [address] [place] [address] Cholesterol in LDL [Mass/Vol] 95 mg/dL Normal [facility] [address] [facility] Comment on above: Order Comment: [facility] performed at: [facility], [facility], [address] [facility], [address] [place] [address], [address] [place] [address], Shipping Supervisor: Conrado Pace MD [facility] Collection Date/Time: [facility] Results Received Date/Time: [facility] Reported Date/Time: FASTING: NO Result Comment: Refe rence range: <100 Desirable range <100 mg/dL for primary prevention; <70 mg/dL for patients with CHD or diabetic patients with > or = 2 CHD risk factors. LDL-C is now calculated using the Aba-Melvina calculation, which is a validated novel method providing better accuracy than the Friedewald equation in the estimation of LDL-C. Aba KELLER et al. PERLA. 2013;310(19): 8426-4333 (http://education.Ixsystems.CallsFreeCalls/faq/IWN769) Performed By: #### 4 96X, 968T, [id number] #### [facility] [address] [place] [address] Cholesterol.total/Chol esterol in HDL [Mass ratio] 3.9 {ratio} Normal <5.[address] [facility] Comment on above: Order Comment: [facility], [address] , [address] [place], [place], [address] [place] [address], Shipping Supervisor: Conrado Pace MD [facility] Date/Time: [id number] [facility] Results Received Date/Time: [facility] Reported Date/Time: FASTING: NO Performed By: #### 4 96X, 968T, [id number] #### [facility] [address] [place] [address] NON HDL CHOLESTEROL 125 mg/dL (calc) Normal <[address] [facility] Comment on above: Order Comment: [facility] performed at: [facility], [address] [facility], [address] [place] [address], [address] [place] [address], Shipping Supervisor: Conrado Pace MD [facility] Date/Time: [facility] Results Received Date/Time: [facility] Reported Date/Time: FASTING: NO Result Comment: For patients with diabetes plus 1 major ASCVD risk factor, treating to a non-HDL-C goal of <100 mg/dL (LDL-C of <70 mg/dL) is considered a therapeutic option. Performed By: #### 4 96X, 968T, [id number] #### [facility] [address] [place] [address] Triglyceride [Mass/Vol] 199 mg/dL High <[address] [facility] Comment on above: Order Comment: [facility] performed at: [facility], [address] [facility], [address] [place] [address], [address] [place] [address], Shipping Supervisor: Conrado Pace MD [facility] Date/Time: [id number] [facility] Results Received Date/Time: [facility] Reported Date/Time: FASTING: NO Performed By: #### 4 96X, 968T, [id number] #### [facility] [address] [place] [address] XR Ankle Complete Righton XR Ankle Complete Right HISTORY: Lateral pain Injury less than 24 hours ago FINDINGS: Minimal anterolateral soft tissue swelling. Mild intertarsal arthritis. Very small plantar and achilles calcaneal spurs. No cortical or stress fracture. Normal subtalar joint and Bohler's angle. IMPRESSION: Mild arthritis, no fracture. Report reported and signed by Claudy [place] on 01/15/2022 [address] [facility] XR Foot Complete Right*on XR Foot Complete Right* HISTORY: Injury less than 24 hours FINDINGS: Mild soft tissue swelling distal metatarsal region. No cortical or stress fracture. Minimal intertarsal arthritis. IMPRESSION: Minimal intertarsal arthritis, no fracture. Report reported and signed by Claudy [place] on 01/15/2022 1137 Normal [facility] Specialist Complete Blood Count with Au to Diffon 10-25-2021 Basophils (Bld) [#/Vol] 0.05 10*3/uL Normal 0.00-0.20 [facility] Comment on above: Performed By: #### C BCAD, CMP #### [facility] [address] [place], [place] [id number] Basophils/100 WBC (Bld) 0.7 % Normal [facility] Special[facility] Comment on above: Performed By: #### C ARMIDA, CMP #### [facility] [address] [place], [place] [id number] Eosinophils (Bld) [#/Vol] 0.14 10*3/uL Normal 0.02-0.50 [facility] Comment on above: Performed By: #### C BCAD, CMP #### [facility] [address] [place], [place] [id number] Eosinophils/100 WBC (Bld) 2.1 % Normal [facility] Specialist Comment on above: Performed By: #### C ARMIDA, CMP #### [facility] [address] [place], [place] [id number] Erythrocyte distribution width (RBC) [Ratio] 12.9 % Normal 11.0-15.0 [facility] Specialist Comment on above: Performed By: #### C BCAFlako, CMP #### [facility] [address] [place], [place] [id number] Hematocrit (Bld) [Volume fraction] 40.1 % Normal 35.0-47.0 [facility] Comment on above: Performed By: #### C BCAD, CMP #### [facility] [address] [place], [place] [id number] Hemoglobin (Bld) [Mass/Vol] 13.3 g/dL Normal 11.6-15.5 [facility] Special[facility] Comment on above: Performed By: #### C BCAD, CMP #### [facility] [address] [place], [place] [id number] Lymphocytes (Bld) [#/Vol] 2.4 10*3/uL Normal 0.9-3.9 [facility] Comment on above: Performed By: #### C ARMIDA, CMP #### [facility] [address] [place], [place] [id number] Lymphocytes/100 WBC (Bld) 35.9 % Normal [facility] Comment on above: Performed By: #### C ARMIDA, CMP #### [facility] [address] [place], [place] [id number] MCH (RBC) [Entitic mass] 30.7 pg Normal 27.0-33.0 [facility] Comment on above: Performed By: #### C ARMIDA, CMP #### [facility] [address] [place], [place] [id number] MCHC (RBC) [Mass/Vol] 33.2 g/dL Normal 32.0-36.0 [facility] Comment on above: Performed By: #### C ARMIDA, CMP #### [facility] [address] [place], [place] [id number] MCV (RBC) [Entitic vol] 93 fL Normal 80-100 [facility] Comment on above: Performed By: #### C ARMIDA, CMP #### [facility] [address] [place], [place] [id number] Monocytes (Bld) [#/Vol] 0.4 10*3/uL Normal 0.2-0.9 [facility] Comment on above: Performed By: #### C BCAFlako, CMP #### [facility] [address] [place], [place] [id number] Monocytes/100 WBC (Bld) 6.6 % Normal [facility] Comment on above: Performed By: #### C BCAFlako, CMP #### [facility] [address] [place], [place] [id number] Neutrophils (Bld) [#/Vol] 3.6 10*3/uL Normal 1.5-7.8 [facility] Comment on above: Performed By: #### C ARMIDA, CMP #### [facility] [address] [place], [place] [id number] Neutrophils/100 WBC (Bld) 54.3 % Normal [facility] Special[facility] Comment on above: Performed By: #### C ARMIDA, CMP #### [facility] [address] [place], [place] [id number] Platelet mean volume (Bld) [Entitic vol] 10.50 fL Normal 7.50-12.50 [facility] Comment on above: Performed By: #### C BCAD, CMP #### [facility] [address] [place], [place] [id number] Platelets (Bld) [#/Vol] 255 10*3/uL Normal 140-400 [facility] Comment on above: Performed By: #### C ARMIDA, CMP #### [facility] [address] [place], [place] [id number] RBC (Bld) [#/Vol] 4.33 10*6/uL Normal 3.90-5.[address] [facility] [address] Builder Comment on above: Performed By: #### C ARMIDA, CMP #### [facility] [address] [place], [place] [id number] RDW-SD 43.8 fL Normal 37.0-50.0 [facility] Special[facility] Comment on above: Performed By: #### C BCAFlako, CMP #### [facility] [address] [place], [place] [id number] WBC (Bld) [#/Vol] 6.7 10*3/uL Normal 3.8-11.0 [facility] [address] Builder Comment on above: Performed By: #### C BCAD, CMP #### [facility] [address] [place], [place] [id number] Comprehensive Metabolic Pane [facility] 10-25-2021 Albumin [Mass/Vol] 4.7 g/dL Normal 3.6-5.1 [facility] [address] Builder Comment on above: Performed By: #### C BCAD, CMP #### [facility] [address] [place], [place] [id number] Albumin/Globulin [Mass ratio] 2.4 {ratio} Normal 1.0-2.5 [facility] Specialist Comment on above: Performed By: #### C BCAD, CMP #### [facility] [address] [place], [place] [id number] ALP [Catalytic activity/Vol] 73 U/L Normal 35-119 [facility] Specialist Comment on above: Performed By: #### C BCAD, CMP #### [facility] [address] [facility] [place] [place] [id number] ALT [Catalytic activity/Vol] 25 U/L Normal 6-33 [facility] Comment on above: Result Comment: 10/18 Female reference range changed. Performed By: #### C BCAD, CMP #### [facility] [address] [facility] [place] [place] [id number] Anion gap [Moles/Vol] 22 mmol/L High 12-20 [facility] Comment on above: Result Comment: Effe ctive 11/23/2019 reference range changed. Performed By: #### C BCAD, CMP #### [facility] [address] [facility] [id number] AST [Catalytic activity/Vol] 25 U/L Normal 9-34 [facility] Comment on above: Performed By: #### C BCAD, CMP #### [facility] [address] [facility] [place] [id number] BUN/CREA 21 Ratio Normal 6-22 [facility] Comment on above: Performed By: #### C BCAD, CMP #### [facility] [address] [facility] [place] [id number] Calcium [Mass/Vol] 9.8 mg/dL Normal 8.6-10.2 [facility] Comment on above: Performed By: #### C BCAD, CMP #### [facility] [address] [facility] [place] [id number] Chloride [Moles/Vol] 102 mmol/L Normal 98-107 [facility] Comment on above: Performed By: #### C BCAD, CMP #### [facility] [address] [facility] [place] [place] [id number] CO2 [Moles/Vol] 23 mmol/L Normal 20-31 [facility] Specialist Comment on above: Performed By: #### C BCAD, CMP #### [facility] [address] [facility] [place] [id number] Creatinine [Mass/Vol] 0.6 mg/dL Normal 0.6-1.[address] [facility] [address] Builder Comment on above: Performed By: #### C BCAD, CMP #### [facility] [address] [place], [place] [id number] eGFRAA 128 mL/min/1.73m2 Normal >60 [facility] Comment on above: Performed By: #### C BCAD, CMP #### [facility] [address] [place], [place] [id number] eGFRNAA 106 mL/min/1.73m2 Normal >60 [facility] Specialist Comment on above: Performed By: #### C BCAD, CMP #### [facility] [address] [place], [place] [id number] Globulin (S) [Mass/Vol] 2.0 g/dL Normal 1.9-3.[address] [facility] [facility] [address] [facility] Comment on above: Performed By: #### C BCAD, CMP #### [facility] [address] [place], [place] [id number] Glucose [Mass/Vol] 122 mg/dL High 65-99 [facility] [address] Builder Comment on above: Result Comment: For FASTING Glucose --- ADA reference ranges: Normal 65-99 mg/dl Prediabetes 100-125 Diabetes >/= 126 Performed By: #### C BCAD, CMP #### [facility] [address] [place], [place] [id number] Potassium [Moles/Vol] 3.2 mmol/L Low 3.5-5.5 [facility] [address] Builder Comment on above: Performed By: #### C BCAD, CMP #### [facility] [address] [place], [place] [id number] Protein [Mass/Vol] 6.7 g/dL Normal 6.1-8.1 [address] [facility] [address] Builder Comment on above: Performed By: #### C BCAD, CMP #### [facility] [address] [place], [place] [id number] Sodium [Moles/Vol] 143 mmol/L Normal 135-146 Yessi [facility] [address] Builder Comment on above: Performed By: #### C BCAD, CMP #### [facility] [address] [place], [place] [id number] TBIL <0.3 [address] [facility] [address] [facility] Comment on above: Performed By: #### C BCAD, CMP #### [facility] [address] [place], [place] [id number] Urea nitrogen [Mass/Vol] 12 mg/dL Normal 7-[address] [facility] [address] [facility] Comment on above: Performed By: #### C BCAD, CMP #### [facility] [address] [place], [place] [id number] Hemoglobin A1Con 10-25-2021 EAG 154.[address] [facility] [address] [facility] Comment on above: Performed By: #### A 1C #### [facility] [address] [place], [place] [id number] HbA1c (Bld) [Mass fraction] 7.0 % High 4.0-6.[address] [facility] [address] [facility] Comment on above: Performed By: #### A 1C #### [facility] [address] [place], [place] [id number] Vital Signs Date Time Vital Sign Value Performing Clinician Faci lity 10-21-2024 11:35-0500 Body height 167.6 cm Koffi Severino MD Work Phone: [facility] 10-21-2024 11:35-0500 Body mass index (BMI) [Ratio] 33.41 kg/m2 Koffi Severino MD Work Phone: [facility] 10-21-2024 11:35-0500 Body weight 93.89 kg Koffi Severino MD Work Phone: [facility] 10-21-2024 11:35-0500 Diastolic blood pressure 70 mm[Hg] Koffi Severino MD Work Phone: [facility] 10-21-2024 11:35-0500 Heart rate 57 /min Koffi Severino MD Work Phone: [facility] 10-21-2024 11:35-0500 SaO2% (BldA) [Mass fraction] 97 % Koffi Severino MD Work Phone: [facility] 10-21-2024 11:35-0500 Systolic blood pressure 126 mm[Hg] Koffi Severino MD Work Phone: [facility] 07-22-2024 11:31-0400 Body height 167.6 cm Koffi Severino MD Work Phone: [facility] 07-22-2024 11:31-0400 Body mass index (BMI) [Ratio] 34.22 kg/m2 Koffi Severino MD Work Phone: [facility] 07-22-2024 11:31-0400 Body weight 96.16 kg Koffi Severino MD Work Phone: [facility] 07-22-2024 11:31-0400 Diastolic blood pressure 74 mm[Hg] Koffi Severino MD Work Phone: [facility] 07-22-2024 11:31-0400 Heart rate 52 /min Koffi Severino MD Work Phone: [facility] 07-22-2024 11:31-0400 SaO2% (BldA) [Mass fraction] 99 % Koffi Severino MD Work Phone: [facility] 07-22-2024 11:31-0400 Systolic blood pressure 124 mm[Hg] Koffi Severino MD Work Phone: [facility] 07-04-2024 13:32-0400 Body height 167.64 cm MD Koffi Severino Work Phone: [facility] 07-04-2024 13:32-0400 Body mass index (BMI) [Ratio] 34.2 kg/m2 MD Koffi Severino Work Phone: [facility] 07-04-2024 13:32-0400 Body temperature 96.2 [degF] MD Koffi Severino Work Phone: [facility] 07-04-2024 13:32-0400 Body weight 96.33 kg MD Koffi Severino Work Phone: [facility] 07-04-2024 13:32-0400 Diastolic blood pressure 71 mm[Hg] MD Koffi Severino Work Phone: [facility] 07-04-2024 13:32-0400 Heart rate 81 /min MD Koffi Severino Work Phone: [facility] 07-04-2024 13:32-0400 Respiratory rate 18 /min MD Koffi Severino Work Phone: [facility] 07-04-2024 13:32-0400 SaO2% (BldA) [Mass fraction] 96 % MD Koffi Severino Work Phone: [facility] 07-04-2024 13:32-0400 Systolic blood pressure 122 mm[Hg] MD Koffi Severino Work Phone: [facility] 07-02-2024 10:59-0400 Body height 167.6 cm Koffi Severino MD Work Phone: [facility] 07-02-2024 10:59-0400 Body mass index (BMI) [Ratio] 34.22 kg/m2 Koffi Severino MD Work Phone: [facility] 07-02-2024 10:59-0400 Body weight 96.16 kg Koffi Severino MD Work Phone: [facility] 07-02-2024 10:59-0400 Heart rate 65 /min Koffi Severino MD Work Phone: [facility] 07-02-2024 10:59-0400 SaO2% (BldA) [Mass fraction] 99 % Koffi Severino MD Work Phone: [facility] 06-12-2024 14:20-0400 Blood Pressure Location Jak Dixon [facility] 06-12-2024 14:20-0400 Diastolic blood pressure 76 mm[Hg] Jak Dixon [facility] 06-12-2024 14:20-0400 Heart rate 60 /min Jak Dixon [facility] 06-12-2024 14:20-0400 Respiratory rate 18 /min Jak Dixon [facility] 06-12-2024 14:20-0400 SaO2% (BldA) [Mass fraction] 96 % Jak Dixon [facility] 06-12-2024 14:20-0400 Systolic blood pressure 132 mm[Hg] Jak Dixon [facility] 11-23-2023 13:05-0500 Body height 167.64 cm Mona Katt Other [employer] Other 11-23-2023 13:05-0500 Body mass index (BMI) [Ratio] 34.28 kg/m2 Mona Katt Other [employer] Other 11-23-2023 13:05-0500 Body temperature 99.1 [degF] Mona Linkmond Other [employer] Other 11-23-2023 13:05-0500 Body weight 96.34 kg Mona Linkmond Other [employer] Other 11-23-2023 13:05-0500 Diastolic blood pressure 57 mm[Hg] Mona Katt Other [employer] Other 11-23-2023 13:05-0500 Respiratory rate 18 /min Mona Katt Other [employer] Other 11-23-2023 13:05-0500 SaO2% (BldA) [Mass fraction] 96 % Mona Katt Other [employer] Other 11-23-2023 13:05-0500 Systolic blood pressure 107 mm[Hg] Mona Bolivar Other [employer] Other 08-15-2023 16:25-0400 Body height 167.64 cm Diamond Mayes Other [employer] Other 08-15-2023 16:25-0400 Body mass index (BMI) [Ratio] 32.83 kg/m2 Diamond Mayes Other [employer] Other 08-15-2023 16:25-0400 Body temperature 97.6 [degF] Diamond Mayes Other [employer] Other 08-15-2023 16:25-0400 Body weight 92.26 kg Diamond Mayes Other [employer] Other 08-15-2023 16:25-0400 Diastolic blood pressure 62 mm[Hg] Diamond Mayes Other [employer] Other 08-15-2023 16:25-0400 Respiratory rate 18 /min Diamond Mayes Other [employer] Other 08-15-2023 16:25-0400 SaO2% (BldA) [Mass fraction] 99 % Diamond Mayes Other [employer] Other 08-15-2023 16:25-0400 Systolic blood pressure 115 mm[Hg] Diamond Mayes Other [employer] Other Encounters Encounter Date Encounter Type Care Provider Facility Start: 11-30-2024 End: 11-30-2024 Martin Severino MD Work Phone: [facility] Start: 11-30-2024 End: 11-30-2024 Bamboo flowsheet Koffi Severino MD Work Phone: [facility] Start: 11-30-2024 End: 11-30-2024 Office outpatient visit 15 minutes Koffi Severino MD Work Phone: [facility] Comment on above: Bronchitis (Primary Dx); Acute cough; Cigarette smoker; Polypharmacy Start: 11-30-2024 End: 11-30-2024 ambulatory KOFFI SEVERINO Not Available Start: 10-21-2024 End: 10-21-2024 Bamboo flowsheet Koffi Severino MD Work Phone: [facility] Start: 10-21-2024 End: 10-21-2024 Bamboo flowsshadi Severino MD Work Phone: [facility] Start: 10-21-2024 End: 10-21-2024 Office outpatient visit 25 minutes Koffi Severino MD Work Phone: [facility] Comment on above: Benign essential HTN (CMS/HCC); Mixed dyslipidemia (CMS/HCC); Type 2 diabetes mellitus with hyperglycemia, without long-term current use of insulin (CMS/HCC); Potassium (K) deficiency; Cigarette smoker; Polypharmacy; Non morbid obesity due to excess calories Start: 10-21-2024 End: 10-21-2024 ambulatory KOFFI SEVERINO Not Available Start: 07-22-2024 End: 07-22-2024 Bamboo flowsshadi Severino MD Work Phone: [facility] Start: 07-22-2024 End: 07-22-2024 Bamboo flowsshadi Severino MD Work Phone: [facility] Start: 07-22-2024 End: 07-23-2024 Refill Koffi Severino MD Work Phone: [facility] Comment on above: Benign essential HTN (CMS/HCC) Start: 07-22-2024 End: 07-22-2024 Office outpatient visit 25 minutes Koffi Severino MD Work Phone: [facility] Comment on above: Benign essential HTN (CMS/HCC) (Primary Dx); Mixed dyslipidemia (CMS/HCC); Type 2 diabetes mellitus with hyperglycemia, without long-term current use of insulin (CMS/HCC); Cigarette smoker; Polypharmacy; Non morbid obesity due to excess calories; Other infective acute otitis externa of left ear; Eustachian tube dysfunction, bilateral Start: 07-22-2024 End: 07-22-2024 ambulatory KOFFI SEVERINO Not Available Start: 07-07-2024 End: 07-07-2024 Orders Only Koffi Severino MD Work Phone: [facility] Start: 07-04-2024 End: 07-04-2024 ambulatory MD Koffi Severino Work Phone: [facility] Work Phone: Start: 07-04-2024 End: 07-04-2024 Patient encounter procedure MD Koffi Severino Work Phone: [facility] Work Phone: Start: 07-02-2024 End: 07-02-2024 Office outpatient visit 15 minutes Koffi Severino MD Work Phone: [facility] Comment on above: Upper respiratory tr act infection, unspecified type (Primary Dx); Acute cough Start: 07-02-2024 End: 07-02-2024 ambulatory KOFFI SEVERINO Not Available Start: 06-17-2024 End: 06-17-2024 ambulatory KOFFI SEVERINO Not Available Start: 06-16-2024 End: 07-08-2024 Pre-admission assessment Jak Dixon [facility] Start: 06-12-2024 End: 06-12-2024 ambulatory KOFFI SEVERINO Facility:[facility] Start: 06-12-2024 End: 06-12-2024 Patient encounter procedure Jak Dixon [facility] Start: 04-22-2024 End: 04-22-2024 ambulatory KOFFI SEVERINO Not Available Start: 04-01-2024 End: 04-01-2024 ambulatory KOFFI SEVERINO Not Available Start: 02-20-2024 End: 02-20-2024 ambulatory KOFFI SEVERINO Not Available Start: 01-30-2024 End: 01-30-2024 ambulatory KOFFI SEVERINO Not Available Start: 01-29-2024 End: 01-29-2024 ambulatory KOFFI SEVERINO Not Available Start: 11-23-2023 End: 11-23-2023 ambulatory Mona Bolivar Other [employer] Other Start: 11-23-2023 Office outpatient visit 15 minutes Mona Bolivar [facility] [place] Start: 08-15-2023 End: 08-15-2023 ambulatory Diamond Mayes Other [employer] Other Start: 08-15-2023 Office outpatient ne w 30 minutes Diamond Mayes [facility] [place] Start: 04-11-2023 End: 04-11-[address] TYRELL LEVINE . Facility: Start: 01-17-2023 End: 01-17-2023 ambulatory Bryan Georges Facility:[facility] Start: 04-27-2022 End: 04-28-[address] KOFFI SEVERINO . Facility:[facility] Start: 12-04-2018 End: 12-05-2018 Patient encounter procedure [facility] Procedures Date Procedure Procedure Detail Performing Clinician Start: 07-04-2024 Quick Strep (POC) Ed tesfaye Mere Work Phone: Start: 07-04-2024 Plain chest X-ray Ed tesfaye Mere Work Phone: Start: 06-17-2024 Mammography Koffi sanchez MD Work Phone: Start: 04-25-2023 H/O: bilateral oophorectomy H/O bilateral oophorectomy Koffi Severino MD Work Phone: Start: 04-25-2023 H/O: hysterectomy History of hysterectomy Koffi Severino MD Work Phone: Start: 01-17-2023 Colonoscopy Koffi sanchez MD Work Phone: Start: 12-04-2018 Echo tthrc r-t 2d w/wom-mode compl spec&colr d VALARIE WEISS Start: 12-04-2018 Echo transthorc r-t 2d w/wo m-mode rec f-up/lmtd VALARIE WEISS Carpal tunnel syndro me (disorder) Jak Dixon [employer] by karen potter (finding) Jak [facility] Comment on above: x 2 ft (qualifier value) Jak shahid Gallbladder structur e (body structure) Jak [facility] Herniated structure (morphologic abnormality) Jak [facility] Comment on above: umblical Tonsillectomy Jak amaya Plan of Treatment Date Care Activity Detail Author Start: 01-17-2033 Screening for malign ant neoplasm of colon [facility] Start: 01-04-2026 Glaucoma screening Diabetes: R etinopathy Screening [facility] Start: 06-17-2025 Screening for malign ant neoplasm of breast Mammogram [facility] Start: 04-20-2025 Urine screening for protein Diabetes: Urine Protein Screening [facility] Start: 04-15-2025 End: 04-15-2025 Patient encounter procedure [facility] Start: 01-19-2025 End: 10-21-2025 Hemoglobin A1c/Hemoglobin.total in Blood Hemoglobin A1c Lab Routine Type 2 diabetes mellitus with hyperglycemia, without long-term current use of insulin ([facility]) Expected: 01/19/2025 (Approximate), Expires: 10/21/2025 [facility] Work Phone: Comment on above: Expected: 01/19/2025 (Approximate), Expires: 10/21/2025 Start: 01-18-2025 Hemoglobin A1c measurement Diabetes: Hemoglobin A1C [facility] Start: 11-30-2024 End: 11-30-2024 Patient encounter procedure 11/30/2024 1:45 PM EST Office Visit [facility] [address] [place] [id number] Koffi Severino MD [address] [facility] [address] [place] [address] Arrived [facility] Comment on above: Arrived Start: 10-21-2024 End: 10-21-2024 Patient encounter procedure [facility] Comment on above: Benign essential HTN (CMS/HCC); Mixed dyslipidemia (CMS/HCC); Metabolic syndrome; Type 2 diabetes mellitus with hyperglycemia, without long-term current use of insulin (CMS/HCC); Potassium (K) deficiency; Cigarette smoker; Polypharmacy; Non morbid obesity due to excess calories Start: 10-17-2024 Hemoglobin A1c measurement Diabetes: Hemoglobin A1C [facility] Start: 07-22-2024 End: 07-22-2024 Patient encounter procedure [facility] Comment on above: Benign essential HTN (CMS/HCC); Mixed dyslipidemia (CMS/HCC); Type 2 diabetes mellitus with hyperglycemia, without long-term current use of insulin ([facility]); Potassium (K) deficiency; Cigarette smoker; Polypharmacy; Non morbid obesity due to excess calories Start: 07-21-2024 Hemoglobin A1c measurement Diabetes: Hemoglobin A1C [facility] Start: 07-19-2024 Influenza vaccination Influenza Vacc ine (#1) [facility] Start: 11-01-2023 Urine screening for protein Diabetes: Urine Protein Screening [facility] Start: 1965 Screening for malign ant neoplasm of colon [facility] XR Chest 2 Views [facility] Payers Date Payer Category Payer [facility] [id number] 2023 Unknown BCBS BCBS xxxxxx [id number] 2023-Present [phone] [address] [place] [address] [id number] 2023 Self-pay 2015 Private Health Insurance [id number] 1966 Unknown [id number] [id number]. 2.174 1966 Unknown [id number] 2.16.840.1.780702.3.579. 2.593 1966 Unknown [id number] 2.16.840.1.565652.3.579. 2.593 1966 Unknown [id number] 2.16.840.1.601730.3.579. 2.727 1966 Unknown [id number] 2.16.840.1.447191.3.579. 2.1258 1966 Unknown [id number] 2.16.840.1.230648.3.579. 2.1259 1966 Unknown [id number] 2.16.840.1.863488.3.579. 2.1259 1966 Unknown [id number] 2.16.840.1.242192.3.579. 2.1258 1966 Unknown [id number] 2.16.840.1.330496.3.579. 2.1259 1966 Unknown [id number] 2.16.840.1.043362.3.579. 2.125 1966 Unknown [id number] 2.16.840.1.494133.3.579. 2.1259 1966 Unknown [id number] 2.16.840.1.341167.3.579. 2.9 1966 Unknown [id number] 2.16.840.1.539642.3.579. 2.1259 1966 Unknown [id number] 2.16.840.1.447159.3.579. 2.9 1966 Unknown [id number] 2.16.840.1.719478.3.579. 2.1259 1959 Unknown [id number] Unknown [employer] [id number] Unknown [id number] [id number]. 2.531 Social History Date Type Detail Facility Unknown if ever smoked [employer] Other Start: 05-22-2023 End: 01-29-2024 Sex Assigned At [facility] Tobacco smoking status No Smokin g Status Entered [facility] Start: 1965 Sex Assigned At Female [facility] Start: 04-25-2023 Tobacco smoking status MNIS Smokes tobacco daily [facility] History of tobacco use Cigarette Smoker [facility] Start: 04-25-2023 Tobacco use and exposure Smokeless tobacco non-user [facility] Start: 07-22-2024 End: 10-21-2024 Alcoholic beverage intake Ex-drinker (finding) [facility] Start: 05-22-2023 End: 01-29-2024 History of Social function [facility] Do you belong to any clubs or organizations such as temple groups, unions, fraternal or athletic groups, or school groups? No [facility] Are you now , , , , never or living with a partner? [facility] How often to you hav e a drink containing alcohol? Monthly or less [facility] How many standard dr inks containing alcohol do you have on a typical day? 3 or 4 [facility] How often do you hav e 6 or more drinks on 1 occasion? Never [facility] How hard is it for y ou to pay for the very basics like food, housing, medical care, and heating Not hard at all [facility] Do you feel stress - tense, restless, nervous, or anxious, or unable to sleep at night because your mind is troubled all the time - these days [OSQ] To some extent [facility] (I/We) worried wheth er (my/our) food would run out before (I/we) got money to buy more. Never true [facility] Start: 04-17-2023 Education 13 [facility] Start: 04-17-2023 Tobacco Comment 11-20 cigs/day, thinking about quitting [facility] Start: 04-17-2023 Alcohol Comment 1-2 drinks for 2-4x a month in the past year, Caffeine intake 4 20 oz soda/ day [facility] Start: 1965 Sex assigned at Not on file [facility] Functional Status Date Assessment Result Facility 06-12-2024 Functional Status No [facility] Clinical Notes 08-15-2023 to 11-30-2024 Koffi Severino MD - 11/30/2024 1:45 PM Laxmi Severino MD - 10/21/2024 11:30 AM Laxmi Severino MD - 07/22/2024 11:30 AM Evangelina Severino MD - 07/07/2024 11:27 AM EDT Note Date & Type Note Facility 11-30-2024 History of Presen t illness Narrative Images from the original note were not included. Patient ID: Lula Yo is a 59 y.o. female who presents for: Upper Respiratory Infection Patient complains of symptoms of a URI. Symptoms include cough and congestion . Onset of symptoms was several days ago, and has been gradually worsening since that time. Treatment to date: antibiotics and cough suppressants. Review of Systems Constitutional: Negative for chills and fever. Respiratory: Positive for cough and wheezing. Negative for shortness of breath. Cardiovascular: Negative for chest pain and palpitations. Gastrointestinal: Negative for abdominal pain. Genitourinary: Negative for frequency and urgency. Objective In general the patient is pleasant and in no acute distress. Bilateral ears, canals are within normal limits. Right TM is transparent and somewhat retracted. Left TM is transparent and somewhat retracted. No fluid layer. Bilateral nares demonstrate inflamed mucosa. Oropharynx has moist mucosa there is no specific evidence of thrush. There is mild erythema of the pharynx. Shoddy bilateral anterior cervical adenopathy. No signs of respiratory distress. Patient is speaking full sentences. There are Diffusely decreased and coarse sounding but symmetrical breath sounds. No rhonchi or rales are appreciated. No wheezes. Skin is warm and dry Visit Vitals OB Status Hysterectomy Smoking Status Every Day PDMP reviewed, Koffi Severino MD on 11/30/2024 2:25 PM Appears as expected. Allergies Allergen Reactions Moxifloxacin Anaphylaxis Other Reaction(s): difficulty breathing/hives, Hives, Swelling, Unknown Cefazolin Other Reaction(s): Hives, Hives, Unknown Metformin GI side effects Sulfamethoxazole Other Reaction(s): Hives, Hives Sulfamethoxazole-Trimethoprim Hives Other Reaction(s): Hives Trimethoprim Other Reaction(s): Hives, Hives Current Outpatient Medications on File Prior to Visit Medication Sig Dispense Refill albuterol HFA 90 mcg/act inhaler Inhale 2 puffs in the morning and 2 puffs at noon and 2 puffs in the evening and 2 puffs before bedtime. 2 puffs as needed 4 times a day. ALPRAZolam (Xanax) 0.5 MG tablet Take 1 tablet (0.5 mg) by mouth as needed at bedtime for anxiety (anxiety). 30 tablet 0 amLODIPine (Norvasc) 10 MG tablet Take 1 tablet (10 mg) by mouth Daily 90 tablet 1 aspirin 81 MG EC tablet Take 81 mg by mouth 3 (three) times a week. azelastine (Astelin) 0.1 % nasal spray Administer 1 spray into each nostril in the morning and 1 spray before bedtime. Use in each nostril as directed. 30 mL 12 calcium citrate 1040 MG tablet Take 250 mg by mouth in the morning and 250 mg before bedtime. 1 tablet two times daily, orally. cholecalciferol (Vitamin D-3) 250 MCG (96771 UT) tablet Take 10,000 Units by mouth in the morning. esomeprazole (NexIUM) [address] capsule Take 40 mg by mouth in the morning. Take before meals. Do not open capsule.. gabapentin (Neurontin) 300 MG capsule Take 1-2 capsules nightly 60 capsule 0 gemfibrozil (Lopid) 600 MG tablet Take 1 tablet (600 mg) by mouth in the morning and 1 tablet (600 mg) before bedtime. 180 tablet 1 lisinopril 40 MG tablet Take 1 tablet (40 mg) by mouth Daily 90 tablet 1 magnesium oxide (Mag-Ox) 400 MG tablet Take 400 mg by mouth in the morning and 400 mg before bedtime. 1 tablet two times daily, orally. metoprolol tartrate (Lopressor) 100 MG tablet Take 1 tablet (100 mg) by mouth in the morning and 1 tablet (100 mg) before bedtime. 180 tablet 1 pioglitazone (Actos) 30 MG tablet Take 1 tablet (30 mg) by mouth Daily 90 tablet 0 spironolactone (Aldactone) 25 MG tablet Take 1 tablet (25 mg) by mouth in the morning and 1 tablet (25 mg) before bedtime. 180 tablet 1 sucralfate (Carafate) 1 g tablet Dissolve 1 tablet in 2 oz water. Take 30 minutes before meals 3 times daily and at bedtime 120 tablet 0 No current facility-administered medications on file prior to visit. 1. Bronchitis (Primary) Chronic problem and she has previously been to urgent care for treatment. She has had minimal improvement. Her chest and ribs is sore from all the coughing. She has lots of secretions and phlegm. There was recently also an alert from the health department concerning mycoplasma which she was not covered for. She is specifically requesting hydrocodone cough syrup. She has been on this previously in it worked well for her without side effects. It does not seem unreasonable to proceed with this in do with the coughing I am noting, the history, and the chest/rib pain. In prescribing a new medication consideration of the following encompasses moderate decision making: the current prescriptions and supplements, the current allergies and medication intolerances, the current medical conditions, and potential drug interactions. Risks, benefits, and reason for starting their medication were discussed. The patient was given a chance to ask questions today and all questions were answered. The patient is to contact us if any other questions arise or if any problems occur with the adjustment in their medication. - HYDROcodone Bit-Homatrop MBr (Hydromet) 5-1.5 MG/5ML solution; Take 5 mL by mouth 4 (four) times a day as needed (cough) for up to 7 days Dispense: 120 mL; Refill: 0 - clarithromycin (Biaxin) 500 MG tablet; Take 1 tablet (500 mg) by mouth in the morning and 1 tablet (500 mg) before bedtime. Do all this for 7 days. Dispense: 14 tablet; Refill: 0 2. Acute cough I specifically note the patient has one or more high risk medications that is a chronic problem that specifically increases complexity of decision making and complicates all prescribing including prescription renewal consistent with a moderate or complex degree of decision making. A high-risk medicine is one that may cause serious health problems if not taken the correct way, or taken with another drug or food item that it may interact with. If the high-risk medication includes a controlled or reportable substance, The OARRS and NARX scores were reviewed and seem to be consistent with their prescribing pattern. The Current Opioid Misuse Measure (COMM) is reviewed and there is no evidence of aberrant behavior or abuse. Treatment regimens are increasingly complex and potentially harmful, and people with high risk medications need regular review and prescribing optimization. - HYDROcodone Bit-Homatrop MBr (Hydromet) 5-1.5 MG/5ML solution; Take 5 mL by mouth 4 (four) times a day as needed (cough) for up to 7 days Dispense: 120 mL; Refill: 0 3. Cigarette smoker We have discussed stopped smoking on multiple occasions. I just briefly reminded her that her future is going to be somewhat like this in more and more treatment resistant problems. She can always reach out for further help. 4. Polypharmacy Chronic problem The patient meets the criteria for polypharmacy; 5 or more prescriptions or multi-morbidity defined as 5 or more diagnoses. Polypharmacy can significantly increase the risk of preventable adverse drug events and negatively impact adherence. Consideration of diverse factors such as clinician agreement, patient perspective, and de-prescribing, as appropriate can improve patient outcomes while simplifying care. This requires longitudinal monitoring as there is at least a moderate risk of morbidity and requires at least a moderate degree of evaluation and management. documented in this encounter [place] [id number] History of Presen t illness Narrative Images from the original note were not included. Patient ID: Lula Yo is a 59 y.o. female who presents for: Hypertension Patient is here for follow-up of elevated blood pressure. She is not exercising and is not adherent to a low-salt diet. Blood pressure is well controlled at home. Cardiac symptoms: dyspnea and palpitations. Patient denies chest pain, irregular heart beat, and lower extremity edema. Cardiovascular risk factors: diabetes mellitus, dyslipidemia, hypertension, obesity (BMI >= 30 kg/m2), sedentary lifestyle, and smoking/ tobacco exposure. Use of agents associated with hypertension: thyroid hormones. History of target organ damage: none. Hyperlipidemia Pt who presents for follow-up of dyslipidemia. A repeat fasting lipid profile was not done. The patient does not use medications that may worsen dyslipidemias (corticosteroids, progestins, anabolic steroids, diuretics, beta-blockers, amiodarone, cyclosporine, olanzapine). Exercise: rarely. Diabetes Mellitus Patient presents for follow up of diabetes. Current symptoms include: pt states she tried the metformin for three days in [facility] when she got back from [place] and it made her really ill . Symptoms have stabilized. Patient denies increased appetite, paresthesia of the feet, and visual disturbances. Evaluation to date has included: hemoglobin A1C. Home sugars: patient does not check sugars. Review of Systems Constitutional: Negative for activity change and fatigue. Respiratory: Negative for cough, shortness of breath and wheezing. Cardiovascular: Positive for palpitations. Negative for chest pain and leg swelling. Neurological: Positive for light-headedness. Negative for headaches. Objective The patient is pleasant and in no acute distress. The heart is regular rate and rhythm without S3, S4. No murmur. The patient has normal respiratory pattern. The breath sounds are symmetrical without evidence of rhonchi or rales. No wheezing. The skin is warm and dry. The patient has good eye contact and speech is clear. Appropriate affect. Visit Vitals BP 126/70 Pulse 57 Ht 5' 6 Wt 207 lb SpO2 97% BMI 33.41 kg/m OB Status Hysterectomy Smoking Status Every Day BSA 2.09 m Component Ref Range & Units 1 d ago (10/20/24) 3 mo ago (07/17/24) 6 mo ago (04/20/24) 1 yr ago (10/22/23) 1 yr ago (04/24/23) 1 yr ago (10/25/22) 2 yr ago (04/27/22) Hemoglobin A1C <5.7 % of total Hgb 7.4 High 7.4 High CM 7.3 High CM 6.4 High CM 6.4 High CM 6.8 High R, CM Allergies Allergen Reactions Moxifloxacin Anaphylaxis Other Reaction(s): difficulty breathing/hives, Hives, Swelling, Unknown Cefazolin Other Reaction(s): Hives, Hives, Unknown Sulfamethoxazole Other Reaction(s): Hives, Hives Sulfamethoxazole-Trimethoprim Hives Other Reaction(s): Hives Trimethoprim Other Reaction(s): Hives, Hives Current Outpatient Medications on File Prior to Visit Medication Sig Dispense Refill albuterol HFA 90 mcg/act inhaler Inhale 2 puffs in the morning and 2 puffs at noon and 2 puffs in the evening and 2 puffs before bedtime. 2 puffs as needed 4 times a day. ALPRAZolam (Xanax) 0.5 MG tablet Take 1 tablet (0.5 mg) by mouth as needed at bedtime for anxiety (anxiety). 30 tablet 0 amLODIPine (Norvasc) 10 MG tablet Take 1 tablet (10 mg) by mouth Daily 90 tablet 1 aspirin 81 MG EC tablet Take 81 mg by mouth 3 (three) times a week. azelastine (Astelin) 0.1 % nasal spray Administer 1 spray into each nostril in the morning and 1 spray before bedtime. Use in each nostril as directed. 30 mL 12 calcium citrate 1040 MG tablet Take 250 mg by mouth in the morning and 250 mg before bedtime. 1 tablet two times daily, orally. cholecalciferol (Vitamin D-3) 250 MCG (34726 UT) tablet Take 10,000 Units by mouth in the morning. esomeprazole (NexIUM) [address] capsule Take 40 mg by mouth in the morning. Take before meals. Do not open capsule.. fluocinonide (Lidex) 0.05 % cream Apply topically 2 (two) times a day 60 g 1 gabapentin (Neurontin) 300 MG capsule Take 1-2 capsules nightly 60 capsule 0 gemfibrozil (Lopid) 600 MG tablet Take 1 tablet (600 mg) by mouth in the morning and 1 tablet (600 mg) before bedtime. 180 tablet 1 lisinopril 40 MG tablet TAKE 1 TABLET BY MOUTH ONCE DAILY SAME TIME EACH DAY 90 tablet 1 magnesium oxide (Mag-Ox) 400 MG tablet Take 400 mg by mouth in the morning and 400 mg before bedtime. 1 tablet two times daily, orally. metoprolol tartrate (Lopressor) 100 MG tablet Take 1 tablet (100 mg) by mouth in the morning and 1 tablet (100 mg) before bedtime. 180 tablet 1 spironolactone (Aldactone) 25 MG tablet Take 1 tablet (25 mg) by mouth in the morning and 1 tablet (25 mg) before bedtime. 180 tablet 1 sucralfate (Carafate) 1 g tablet Dissolve 1 tablet in 2 oz water. Take 30 minutes before meals 3 times daily and at bedtime 120 tablet 0 [DISCONTINUED] metFORMIN (Glucophage) 1000 MG tablet Take 1 tablet (1,000 mg) by mouth in the morning and 1 tablet (1,000 mg) in the evening. Take with meals. 60 tablet 0 [DISCONTINUED] metFORMIN (Glucophage) 500 MG tablet Take 1 tablet (500 mg) by mouth in the morning and 1 tablet (500 mg) in the evening. Take before meals. 60 tablet 0 [DISCONTINUED] metFORMIN (Glucophage) 850 MG tablet Take 1 tablet (850 mg) by mouth in the morning and 1 tablet (850 mg) in the evening. Take before meals. 60 tablet 0 [DISCONTINUED] [id number]-[id number] (Cortisporin) 3.5-14690-6 otic suspension Apply 3 drops to affected ear 3 times daily for 7 days 10 mL 0 No current facility-administered medications on file prior to visit. 1. Benign essential HTN (CMS/HCC) Chronic problem, stable, to goal - lisinopril 40 MG tablet; Take 1 tablet (40 mg) by mouth Daily Dispense: 90 tablet; Refill: 1 - metoprolol tartrate (Lopressor) 100 MG tablet; Take 1 tablet (100 mg) by mouth in the morning and 1 tablet (100 mg) before bedtime. Dispense: 180 tablet; Refill: 1 - amLODIPine (Norvasc) 10 MG tablet; Take 1 tablet (10 mg) by mouth Daily Dispense: 90 tablet; Refill: 1 - spironolactone (Aldactone) 25 MG tablet; Take 1 tablet (25 mg) by mouth in the morning and 1 tablet (25 mg) before bedtime. Dispense: 180 tablet; Refill: 1 2. Mixed dyslipidemia ([facility]) In prescribing a renewal to their current medication, consideration of the following encompasses moderate decision making; the current prescriptions and supplements, the current allergies and medication intolerances, current medical conditions, and potential drug interactions. Any changes to risks, benefits, and reason for renewing their current medication due to the above were discussed. The patient was given a chance to ask questions today and all questions were answered. The patient is to contact us if any other questions arise or if any problems occur. (Utilizing the original guidelines or the 2020 office/outpatient code guidelines for selecting the level of E/M service, In both sets of guidelines, prescription drug management appears in the moderate medical decision making (MDM) row. Neither the original guidelines nor the new guidelines state that a new prescription or change is needed in order to credit prescription drug management) - gemfibrozil (Lopid) 600 MG tablet; Take 1 tablet (600 mg) by mouth in the morning and 1 tablet (600 mg) before bedtime. Dispense: 180 tablet; Refill: 1 3. Type 2 diabetes mellitus with hyperglycemia, without long-term current use of insulin ([facility]) Chronic problem, unstable, not to goal. We have tried metformin that she had a lot of GI side effects including heartburn, abdominal pain and bloating. She also developed some loose bowels. She stopped this on her own. I discussed with her that she has not been to goal for 1 year in his potentially causing permanent damage to her body. We talked about several different options. We very specifically talked about the possibility in fluid retention and what that would mean forher. In prescribing a new medication consideration of the following encompasses moderate decision making: the current prescriptions and supplements, the current allergies and medication intolerances, the current medical conditions, and potential drug interactions. Risks, benefits, and reason for starting their medication were discussed. The patient was given a chance to ask questions today and all questions were answered. The patient is to contact us if any other questions arise or if any problems occur with the adjustment in their medication. - pioglitazone (Actos) 30 MG tablet; Take 1 tablet (30 mg) by mouth Daily Dispense: 90 tablet; Refill: 0 - Hemoglobin A1c; Future - Hemoglobin A1c 4. Potassium (K) deficiency Chronic problem, asymptomatic 5. Cigarette smoker Chronic problem that is unstable. The patient continues to use tobacco products or nicotine. Your goal is to quit using tobacco or vapor, as it significantly worsens health risks and complicates treatments. The patient was given a chance to ask questions and they declined medical intervention. 6. Polypharmacy Chronic problem The patient meets the criteria for polypharmacy; 5 or more prescriptions or multi-morbidity defined as 5 or more diagnoses. Polypharmacy can significantly increase the risk of preventable adverse drug events and negatively impact adherence. Consideration of diverse factors such as clinician agreement, patient perspective, and de-prescribing, as appropriate can improve patient outcomes while simplifying care. This requires longitudinal monitoring as there is at least a moderate risk of morbidity and requires at least a moderate degree of evaluation and management. 7. Non morbid obesity due to excess calories Encouraged lifestyle changes. documented in this encounter [facility] 07-22-2024 History of Presen t illness Narrative Images from the original note were not included. Patient ID: Lula Yo is a 58 y.o. female who presents for: Hypertension Patient is here for follow-up of elevated blood pressure. She is not exercising and is not adherent to a low-salt diet. Blood pressure is not checking BP at home. Cardiac symptoms: dyspnea, palpitations, and lightheadedness . Patient denies chest pain, irregular heart beat, and lower extremity edema. Cardiovascular risk factors: diabetes mellitus, dyslipidemia, hypertension, obesity (BMI >= 30 kg/m2), sedentary lifestyle, and smoking/ tobacco exposure. Use of agents associated with hypertension: none. History of target organ damage: none. Hyperlipidemia Pt who presents for follow-up of dyslipidemia. A repeat fasting lipid profile was not done. The patient does not use medications that may worsen dyslipidemias (corticosteroids, progestins, anabolic steroids, diuretics, beta-blockers, amiodarone, cyclosporine, olanzapine). Exercise: never. Diabetes Mellitus Patient presents for follow up of diabetes. Current symptoms include: none. Symptoms have stabilized. Patient denies increased appetite, nausea, paresthesia of the feet, polydipsia, polyuria, and visual disturbances. Evaluation to date has included: hemoglobin A1C. Home sugars: patient does not check sugars. Continued left ear pain with decreased hearing We saw the patient and she had what appeared to be a viral URI without secondary signs of infection. She states she got worse over the weekend and went to the urgent care and was given a Z-Dayo. She denies any significant improvement. She does note that the cold symptoms are starting to improve but they ear pain in volume change associated with the left ear remain unchanged. Review of Systems Constitutional: Negative for activity change and fatigue. Respiratory: Positive for cough and shortness of breath. Negative for wheezing. Cardiovascular: Positive for palpitations. Negative for chest pain and leg swelling. Neurological: Negative for light-headedness and headaches. Objective In general the patient is pleasant and in no acute distress. Bilateral ears, canals have what appears to be linear Q-tip abrasions in the bottom portion. The left ear canal has erythema all the way around. It also appears smaller than the right ear canal. There is pain upon palpation of the tragus. Right TM is transparent and somewhat retracted. Left TM is transparent and Very retracted. No fluid layer. Bilateral nares demonstrate inflamed mucosa. Oropharynx has moist mucosa there is no specific evidence of thrush. There is mild erythema of the pharynx. Shoddy bilateral anterior cervical adenopathy. No signs of respiratory distress. Patient is speaking full sentences. There are symmetrical breath sounds. No rhonchi or rales are appreciated. No wheezes. Heart is regular rate and rhythm without murmur S3 or S4. Skin is warm and dry Visit Vitals BP 124/74 Pulse 52 Ht 5' 6 Wt 212 lb SpO2 99% BMI 34.22 kg/m OB Status Hysterectomy Smoking Status Every Day BSA 2.12 m Office Visit on 04/22/2024 Component Date Value Ref Range Status Hemoglobin A1C 07/17/2024 7.4 (H) <5.7 % of total Hgb Final Comment: For someone without known diabetes, a hemoglobin A1c value of 6.5% or greater indicates that they may have diabetes and this should be confirmed with a follow-up test. For someone with known diabetes, a value <7% indicates that their diabetes is well controlled and a value greater than or equal to 7% indicates suboptimal control. A1c targets should be individualized based on duration of diabetes, age, comorbid conditions, and other considerations. Currently, no consensus exists regarding use of hemoglobin A1c for diagnosis of diabetes for children. This test was performed on the [employer] c503 platform. Effective 11/04/23, a change in test platforms from the [employer] to the [employer] c503 may have shifted HbA1c results compared to historical results. Based on laboratory validation testing conducted at [facility], the [employer] platform relative to the [employer] platform had an average increase in HbA1c value of < or = 0.3%. This difference is with in accepted variability established by the National Glycohemoglobin Standardization Program. Note that not all individuals will have had a shift in their results and direct comparisons between historical and current results for testing conducted on different platforms is not recommended. Telephone on 01/31/2024 Component Date Value Ref Range Status LIPASE 01/31/2024 36 7 - 60 U/L Final WHITE BLOOD CELL COUNT 01/31/2024 6.9 3.8 - 10.8 Thousand/uL Final RED BLOOD CELL COUNT 01/31/2024 4.33 3.80 - 5.10 Million/uL Final HEMOGLOBIN 01/31/2024 13.2 11.7 - 15.5 g/dL Final HEMATOCRIT 01/31/2024 38.5 35.0 - 45.0 % Final MCV 01/31/2024 88.9 80.0 - 100.0 fL Final MCH 01/31/2024 30.5 27.0 - 33.0 pg Final MCHC 01/31/2024 34.3 32.0 - 36.0 g/dL Final RDW 01/31/2024 12.4 11.0 - 15.0 % Final PLATELET COUNT 01/31/2024 333 140 - 400 Thousand/uL Final MPV 01/31/2024 11.0 7.5 - 12.5 fL Final ABSOLUTE NEUTROPHILS 01/31/2024 3,360 1,500 - 7,800 cells/uL Final ABSOLUTE BAND NEUTROPHILS 01/31/2024 CANCELED 0 - 750 cells/uL Final Result canceled by the ancillary. ABSOLUTE METAMYELOCYTES 01/31/2024 CANCELED 0 cells/uL Final Result canceled by the ancillary. ABSOLUTE MYELOCYTES 01/31/2024 CANCELED 0 cells/uL Final Result canceled by the ancillary. ABSOLUTE PROMYELOCYTES 01/31/2024 CANCELED 0 cells/uL Final Result canceled by the ancillary. ABSOLUTE LYMPHOCYTES 01/31/2024 2,884 850 - 3,900 cells/uL Final ABSOLUTE MONOCYTES 01/31/2024 435 200 - 950 cells/uL Final ABSOLUTE EOSINOPHILS 01/31/2024 138 15 - 500 cells/uL Final ABSOLUTE BASOPHILS 01/31/2024 83 0 - 200 cells/uL Final ABSOLUTE BLASTS 01/31/2024 CANCELED 0 cells/uL Final Result canceled by the ancillary. ABSOLUTE NUCLEATED RBC 01/31/2024 CANCELED 0 cells/uL Final Result canceled by the ancillary. NEUTROPHILS 01/31/2024 48.7 % Final BAND NEUTROPHILS 01/31/2024 CANCELED % Final Result canceled by the ancillary. METAMYELOCYTES 01/31/2024 CANCELED % Final Result canceled by the ancillary. CIPROFLOXICIN 01/31/2024 CANCELED % Final Result canceled by the ancillary. PROMYELOCYTES 01/31/2024 CANCELED % Final Result canceled by the ancillary. LYMPHOCYTES 01/31/2024 41.8 % Final REACTIVE LYMPHOCYTES 01/31/2024 CANCELED 0 - 10 % Final Result canceled by the ancillary. MONOCYTES 01/31/2024 6.3 % Final EOSINOPHILS 01/31/2024 2.0 % Final BASOPHILS 01/31/2024 1.2 % Final BLASTS 01/31/2024 CANCELED % Final Result canceled by the ancillary. NUCLEATED RBC 01/31/2024 CANCELED 0 /100 WBC Final Result canceled by the ancillary. COMMENT(S) 01/31/2024 CANCELED Final Result canceled by the ancillary. Glucose 01/31/2024 109 (H) 65 - 99 mg/dL Final Comment: Fasting reference interval For someone without known diabetes, a glucose value between 100 and 125 mg/dL is consistent with prediabetes and should be confirmed with a follow-up test. BUN 01/31/2024 16 7 - 25 mg/dL Final Creatinine 01/31/2024 0.75 0.50 - 1.03 mg/dL Final EGFR 01/31/2024 93 > OR = 60 mL/min/1.73m2 Final BUN/CREATININE RATIO 01/31/2024 SEE NOTE: (calc) Final Comment: Not Reported: BUN and Creatinine are within reference range. Sodium 01/31/2024 138 135 - 146 mmol/L Final Potassium, Bld 01/31/2024 4.7 3.5 - 5.3 mmol/L Final Chloride 01/31/2024 103 98 - 110 mmol/L Final Carbon Dioxide 01/31/2024 22 20 - 32 mmol/L Final Calcium 01/31/2024 9.7 8.6 - 10.4 mg/dL Final PROTEIN, TOTAL 01/31/2024 6.9 6.1 - 8.1 g/dL Final ALBUMIN 01/31/2024 4.6 3.6 - 5.1 g/dL Final GLOBULIN 01/31/2024 2.3 1.9 - 3.7 g/dL (calc) Final ALBUMIN/GLOBULIN RATIO 01/31/2024 2.0 1.0 - 2.5 (calc) Final BILIRUBIN, TOTAL 01/31/2024 0.3 0.2 - 1.2 mg/dL Final ALKALINE PHOSPHATASE 01/31/2024 66 37 - 153 U/L Final AST 01/31/2024 22 10 - 35 U/L Final ALT 01/31/2024 17 6 - 29 U/L Final Allergies Allergen Reactions Moxifloxacin Anaphylaxis Other Reaction(s): difficulty breathing/hives, Hives, Swelling, Unknown Cefazolin Other Reaction(s): Hives, Hives, Unknown Sulfamethoxazole Other Reaction(s): Hives, Hives Sulfamethoxazole-Trimethoprim Hives Other Reaction(s): Hives Trimethoprim Other Reaction(s): Hives, Hives Current Outpatient Medications on File Prior to Visit Medication Sig Dispense Refill albuterol HFA 90 mcg/act inhaler Inhale 2 puffs in the morning and 2 puffs at noon and 2 puffs in the evening and 2 puffs before bedtime. 2 puffs as needed 4 times a day. ALPRAZolam (Xanax) 0.5 MG tablet Take 1 tablet (0.5 mg) by mouth as needed at bedtime for anxiety (anxiety). 30 tablet 0 amLODIPine (Norvasc) 10 MG tablet Take 1 tablet (10 mg) by mouth Daily 90 tablet 1 aspirin 81 MG EC tablet Take 81 mg by mouth 3 (three) times a week. calcium citrate 1040 MG tablet Take 250 mg by mouth in the morning and 250 mg before bedtime. 1 tablet two times daily, orally. cholecalciferol (Vitamin D-3) 250 MCG (82934 UT) tablet Take 10,000 Units by mouth in the morning. esomeprazole (NexIUM) [address] capsule Take 40 mg by mouth in the morning. Take before meals. Do not open capsule.. fluocinonide (Lidex) 0.05 % cream Apply topically 2 (two) times a day 60 g 1 gabapentin (Neurontin) 300 MG capsule Take 1-2 capsules nightly 60 capsule 0 gemfibrozil (Lopid) 600 MG tablet Take 1 tablet (600 mg) by mouth in the morning and 1 tablet (600 mg) before bedtime. 180 tablet 1 lisinopril 40 MG tablet Take 1 tablet (40 mg) by mouth 1 (one) time each day at the same time 90 tablet 1 magnesium oxide (Mag-Ox) 400 MG tablet Take 400 mg by mouth in the morning and 400 mg before bedtime. 1 tablet two times daily, orally. metoprolol tartrate (Lopressor) 100 MG tablet Take 1 tablet (100 mg) by mouth in the morning and 1 tablet (100 mg) before bedtime. 180 tablet 1 spironolactone (Aldactone) 25 MG tablet Take 1 tablet (25 mg) by mouth in the morning and 1 tablet (25 mg) before bedtime. 180 tablet 1 sucralfate (Carafate) 1 g tablet Dissolve 1 tablet in 2 oz water. Take 30 minutes before meals 3 times daily and at bedtime 120 tablet 0 [DISCONTINUED] azithromycin (Zithromax) 250 MG tablet Take 250 mg by mouth Daily [DISCONTINUED] methylPREDNISolone (Medrol Dospak) 4 MG tablets Take 4 mg by mouth No current facility-administered medications on file prior to visit. 1. Benign essential HTN (CMS/HCC) Chronic problem, stable, to goal - lisinopril 40 MG tablet; Take 1 tablet (40 mg) by mouth 1 (one) time each day at the same time Dispense: 90 tablet; Refill: 1 - metoprolol tartrate (Lopressor) 100 MG tablet; Take 1 tablet (100 mg) by mouth in the morning and 1 tablet (100 mg) before bedtime. Dispense: 180 tablet; Refill: 1 - amLODIPine (Norvasc) 10 MG tablet; Take 1 tablet (10 mg) by mouth Daily Dispense: 90 tablet; Refill: 1 - spironolactone (Aldactone) 25 MG tablet; Take 1 tablet (25 mg) by mouth in the morning and 1 tablet (25 mg) before bedtime. Dispense: 180 tablet; Refill: 1 2. Mixed dyslipidemia ([facility]) In prescribing a renewal to their current medication, consideration of the following encompasses moderate decision making; the current prescriptions and supplements, the current allergies and medication intolerances, current medical conditions, and potential drug interactions. Any changes to risks, benefits, and reason for renewing their current medication due to the above were discussed. The patient was given a chance to ask questions today and all questions were answered. The patient is to contact us if any other questions arise or if any problems occur. (Utilizing the original 1994/1996 guidelines or the 2020 office/outpatient code guidelines for selecting the level of E/M service, In both sets of guidelines, prescription drug management appears in the moderate medical decision making (MDM) row. Neither the original guidelines nor the new guidelines state that a new prescription or change is needed in order to credit prescription drug management) - gemfibrozil (Lopid) 600 MG tablet; Take 1 tablet (600 mg) by mouth in the morning and 1 tablet (600 mg) before bedtime. Dispense: 180 tablet; Refill: 1 3. Type 2 diabetes mellitus with hyperglycemia, without long-term current use of insulin ([facility]) Chronic problem, unstable, not to goal. She has not successfully Unable to manage her diabetes with lifestyle changes. Encouraged her to continue to do so as a foundation to work from. In prescribing a new medication consideration of the following encompasses moderate decision making: the current prescriptions and supplements, the current allergies and medication intolerances, the current medical conditions, and potential drug interactions. Risks, benefits, and reason for starting their medication were discussed. The patient was given a chance to ask questions today and all questions were answered. The patient is to contact us if any other questions arise or if any problems occur with the adjustment in their medication. - metFORMIN (Glucophage) 500 MG tablet; Take 1 tablet (500 mg) by mouth in the morning and 1 tablet (500 mg) in the evening. Take before meals. Dispense: 60 tablet; Refill: 0 - metFORMIN (Glucophage) 850 MG tablet; Take 1 tablet (850 mg) by mouth in the morning and 1 tablet (850 mg) in the evening. Take before meals. Dispense: 60 tablet; Refill: 0 - metFORMIN (Glucophage) 1000 MG tablet; Take 1 tablet (1,000 mg) by mouth in the morning and 1 tablet (1,000 mg) in the evening. Take with meals. Dispense: 60 tablet; Refill: 0 4. Cigarette smoker Chronic problem that is unstable. The patient continues to use tobacco products or nicotine. Your goal is to quit using tobacco or vapor, as it significantly worsens health risks and complicates treatments. The patient was given a chance to ask questions and they declined medical intervention. 5. Polypharmacy Chronic problem The patient meets the criteria for polypharmacy; 5 or more prescriptions or multi-morbidity defined as 5 or more diagnoses. Polypharmacy can significantly increase the risk of preventable adverse drug events and negatively impact adherence. Consideration of diverse factors such as clinician agreement, patient perspective, and de-prescribing, as appropriate can improve patient outcomes while simplifying care. This requires longitudinal monitoring as there is at least a moderate risk of morbidity and requires at least a moderate degree of evaluation and management. 6. Non morbid obesity due to excess calories Lifestyle changes as noted 7. Other infective acute otitis externa of left ear Encouraged patient to not use Q-tips in the ears. Washcloth on a fingertip. - fmqfgssf-skwohuzwx-qpmifwbnukjawe (Cortisporin) 3.5-93031-7 otic suspension; Apply 3 drops to affected ear 3 times daily for 7 days Dispense: 10 mL; Refill: 0 8. Eustachian tube dysfunction, bilateral Chronic problem. Most likely a combination of allergic rhinitis and smoking irritation. - azelastine (Astelin) 0.1 % nasal spray; Administer 1 spray into each nostril in the morning and 1 spray before bedtime. Use in each nostril as directed. Dispense: 30 mL; Refill: 12 documented in this encounter [facility] 07-07-2024 History of Presen t illness Narrative I can see her to re-evaluate if that is what she would like to do. However is probably most likely a viral illness that is just going to take some time. As supportive treatment especially if head congestion is a problem I do recommend saline nasal spray 4 times daily. I also use Sudogest which I have only found at medicine shop in [place]. If you use this do not follow the directions on the box. One tablet 3 times a day is plenty. She could also take some Robitussin DM ( not the other cough cold preparations) right along with the Sudogest. documented in this encounter [facility] 07-02-2024 History of Presen t illness Narrative Images from the original note were not included. Patient ID: uLla Yo is a 58 y.o. female who presents for: Upper Respiratory Infection Patient complains of symptoms of a URI. Symptoms include achiness, congestion, non productive cough, sinus pressure, sore throat, and heartburn, earache . Onset of symptoms was 5 days ago, and has been gradually worsening since that time. Treatment to date: none. Review of Systems Constitutional: Negative for chills and fever. HENT: Positive for congestion, ear pain, sinus pressure and sore throat. Negative for sinus pain. Respiratory: Positive for cough and wheezing. Negative for shortness of breath. Neurological: Positive for headaches. Negative for light-headedness. Objective In general the patient is pleasant and in no acute distress. Bilateral ears, canals are within normal limits. Right TM is transparent and somewhat retracted. Left TM is transparent and somewhat retracted. No fluid layer. Bilateral nares demonstrate inflamed mucosa. Oropharynx has moist mucosa there is no specific evidence of thrush. There is mild erythema of the pharynx. Shoddy bilateral anterior cervical adenopathy. No signs of respiratory distress. Patient is speaking full sentences. There are symmetrical breath sounds. No rhonchi or rales are appreciated. No wheezes. Skin is warm and dry Visit Vitals Pulse 65 Ht 5' 6 Wt 212 lb SpO2 99% BMI 34.22 kg/m OB Status Hysterectomy Smoking Status Every Day BSA 2.12 m Allergies Allergen Reactions Moxifloxacin Anaphylaxis Other Reaction(s): difficulty breathing/hives, Hives, Swelling, Unknown Cefazolin Other Reaction(s): Hives, Hives, Unknown Sulfamethoxazole Other Reaction(s): Hives, Hives Sulfamethoxazole-Trimethoprim Hives Other Reaction(s): Hives Trimethoprim Other Reaction(s): Hives, Hives Current Outpatient Medications on File Prior to Visit Medication Sig Dispense Refill albuterol HFA 90 mcg/act inhaler Inhale 2 puffs in the morning and 2 puffs at noon and 2 puffs in the evening and 2 puffs before bedtime. 2 puffs as needed 4 times a day. ALPRAZolam (Xanax) 0.5 MG tablet Take 1 tablet (0.5 mg) by mouth as needed at bedtime for anxiety (anxiety). 30 tablet 0 amLODIPine (Norvasc) 10 MG tablet Take 1 tablet (10 mg) by mouth Daily 90 tablet 1 aspirin 81 MG EC tablet Take 81 mg by mouth 3 (three) times a week. calcium citrate 1040 MG tablet Take 250 mg by mouth in the morning and 250 mg before bedtime. 1 tablet two times daily, orally. cholecalciferol (Vitamin D-3) 250 MCG (68477 UT) tablet Take 10,000 Units by mouth in the morning. esomeprazole (NexIUM) [address] capsule Take 40 mg by mouth in the morning. Take before meals. Do not open capsule.. fluocinonide (Lidex) 0.05 % cream Apply topically 2 (two) times a day 60 g 1 gabapentin (Neurontin) 300 MG capsule Take 1-2 capsules nightly 60 capsule 0 gemfibrozil (Lopid) 600 MG tablet Take 1 tablet (600 mg) by mouth in the morning and 1 tablet (600 mg) before bedtime. 180 tablet 1 lisinopril 40 MG tablet Take 1 tablet (40 mg) by mouth 1 (one) time each day at the same time 90 tablet 1 magnesium oxide (Mag-Ox) 400 MG tablet Take 400 mg by mouth in the morning and 400 mg before bedtime. 1 tablet two times daily, orally. metoprolol tartrate (Lopressor) 100 MG tablet Take 1 tablet (100 mg) by mouth in the morning and 1 tablet (100 mg) before bedtime. 180 tablet 1 spironolactone (Aldactone) 25 MG tablet Take 1 tablet (25 mg) by mouth in the morning and 1 tablet (25 mg) before bedtime. 180 tablet 1 sucralfate (Carafate) 1 g tablet Dissolve 1 tablet in 2 oz water. Take 30 minutes before meals 3 times daily and at bedtime 120 tablet 0 No current facility-administered medications on file prior to visit. 1. Upper respiratory tract infection, unspecified type Acute problem that is almost certainly viral in nature. There are no signs of secondary infection. She is coughing significantly in the room during the exam. She also notes it is worse even at nighttime. - HYDROcodone Bit-Homatrop MBr (Hydromet) 5-1.5 MG/5ML solution; Take 5 mL by mouth 4 (four) times a day as needed (cough) for up to 7 days Dispense: 120 mL; Refill: 0 2. Acute cough I specifically note the patient has one or more high risk medications that is a chronic problem that specifically increases complexity of decision making and complicates all prescribing including prescription renewal consistent with a moderate or complex degree of decision making. A high-risk medicine is one that may cause serious health problems if not taken the correct way, or taken with another drug or food item that it may interact with. If the high-risk medication includes a controlled or reportable substance, The OARRS and NARX scores were reviewed and seem to be consistent with their prescribing pattern. In prescribing a new medication consideration of the following encompasses moderate decision making: the current prescriptions and supplements, the current allergies and medication intolerances, the current medical conditions, and potential drug interactions. Risks, benefits, and reason for starting their medication were discussed. The patient was given a chance to ask questions today and all questions were answered. The patient is to contact us if any other questions arise or if any problems occur with the adjustment in their medication. - HYDROcodone Bit-Homatrop MBr (Hydromet) 5-1.5 MG/5ML solution; Take 5 mL by mouth 4 (four) times a day as needed (cough) for up to 7 days Dispense: 120 mL; Refill: 0 documented in this encounter [facility] 11-23-2023 Evaluation note Encounter Date Diagnosis Assessment Notes Nov, COVID-19 (ICD-10 - U07.1) Discharge Instructions for COVID-19 (Suspected or Confirmed ) material was printed Plenty fluids, get plenty of rest. Take Tylenol or Motrin as needed for aches pains or fevers. Follow-up with your family physician if no improvement in 2 to 3 days. You must quarantine for 5 days after the onset of your symptoms of COVID. Nov, Acute cough (ICD-10 - R05.1) Nov, Close exposure to COVID-19 virus (ICD-10 - Z20.822) [employer] Other 09-28-2023 Evaluation note* Encounter Date Diagnosis Assessment Notes Treatment Notes Treatment Clinical Notes Jul, Acute sinusitis, unspecified (ICD-10 - J01.90) Advise patient that rapid COVID/influenza A/B and rapid strep test were negative today in office. Discussed diagnosis with patient today. Will treat as viral at this time based on physical exam and duration of symptoms. Advised patient viral syndromes last 7-10 days. If symptoms do not improve in the next 3-4 days patient may call UC and I will send antibiotic (Augmentin) to use as directed. Will send in Rx of Medrol Dosepak to use as directed. Encouraged supportive care as directed today. Push fluids/rest, nasal saline washes as directed, may use Tylenol as needed for discomfort, OTC plain Mucinex. Patient to follow up with PCP or UC for any new or worsening symptoms. Immediate eval if SOB, wheezing, difficulty breathing, or other concerning symptoms. Patient verbalizes understanding and is agreeable to treatment plan Jul, Cold sore (ICD-10 - B00.1) Patient reports history of cold sores, states that this cold sore appeared less than 48 hours ago, indicating antiviral treatment. Advised to take as directed. Follow above treatment plan recommendations Jul, Sore throat (ICD-10 - J02.9) Jul, Suspected COVID-19 virus infection (ICD-10 - Z20.822) [employer] Other Evaluation + Plan note Future Appointments Appointment Date:07/27/2024 01:15:00 PM Scheduled Provider:Salvador Gómez PA-C Location:[facility] Appointment Type:Cardiology Follow Up ([facility]) [facility] Evaluation note* Diagnosis Onset Date Resolution Status Bronchitis acute [facility] Work Phone: Evaluation note* Diagnosis Benign essential HTN (CMS/HCC) Mixed dyslipidemia (CMS/HCC) Type 2 diabetes mellitus with hyperglycemia, without long-term current use of insulin (CMS/HCC) Potassium (K) deficiency Hypopotassemia Cigarette smoker Tobacco use disorder Polypharmacy Issue of repeat prescriptions Non morbid obesity due to excess calories documented in this encounter [facility] HealthcareEvaluation note* Diagnosis Benign essential HTN (CMS/HCC)- Primary Mixed dyslipidemia (CMS/HCC) Type 2 diabetes mellitus with hyperglycemia, without long-term current use of insulin (CMS/HCC) Cigarette smoker Tobacco use disorder Polypharmacy Issue of repeat prescriptions Non morbid obesity due to excess calories Other infective acute otitis externa of left ear Eustachian tube dysfunction, bilateral documented in this encounter [facility] HealthcareEvaluation note* Diagnosis Upper respiratory tract infection, unspecified type- Primary Acute cough Benign essential HTN (CMS/HCC) Mixed dyslipidemia (CMS/HCC) Type 2 diabetes mellitus with hyperglycemia, without long-term current use of insulin ([facility]) Potassium (K) deficiency Hypopotassemia Cigarette smoker Tobacco use disorder Polypharmacy Issue of repeat prescriptions Non morbid obesity due to excess calories documented in this encounter [facility] HealthcareEvaluation note* Diagnosis Benign essential HTN (CMS/HCC) documented in this encounter [facility] HealthcareEvaluation note* Diagnosis Bronchitis- Primary Bronchitis, not specified as acute or chronic Acute cough Cigarette smoker Tobacco use disorder Polypharmacy Issue of repeat prescriptions documented in this encounter [facility] general Narrative - Reported* Type Description Date Medical History anxiety Medical History high blood pressure Surgical History T & A Surgical History hysterectomy Surgical History cholecystectomy Surgical History C section Surgical History carpal tunnel release Surgical History moved ulnar nerve Hospitalization History See Above [employer] Other History general Narrative - Reported* Type Description Date Medical History anxiety Medical History high blood pressure Medical History BORDER LINE DM TYPE II Medical History PNEUMONIA Surgical History T & A Surgical History hysterectomy Surgical History cholecystectomy Surgical History C section Surgical History carpal tunnel release Surgical History moved ulnar nerve Hospitalization History See Above [employer] Other Hospital course Narrative No data available for this section [facility] Hospital Discharge instructions No data available for this section [facility] Progress note No data available for this section [facility] Summary Purpose Family History Relationship Condition Age at Onset Recorded Date/T rosario brother Malignant neoplasm Unknown father Heart disease Unknown Unknown Parkinson's disease Unknown mother Diabetes mellitus Unknown Heart disease Unknown Hypertension Unknown Advance Directives Advance Directive Response Recorded Date/ Time Advance Directives No January 25, 2 023 4:04pm Chief Complaint and Reason for Visit Chief Complaint Sore throat, cough Reason for Visit Bronchitis Additional Source Comments INFORMATION SOURCE (unrecogn ized section and content) DATE CREATED AUTHOR 12/12/2018 [facility] DATE CREATED AUTHOR AUTHOR'S ORGANIZ ATION 07/13/2022 [facility] dical Specialist DATE CREATED AUTHOR AUTHOR'S ORGANIZ ATION 01/18/2023 [facility] DATE CREATED AUTHOR AUTHOR'S ORGANIZ ATION 04/26/2023 [facility] [place] [facility] DATE CREATED AUTHOR AUTHOR'S ORGANIZ ATION 06/25/2024 [facility] DATE CREATED AUTHOR AUTHOR'S ORGANIZ ATION 07/12/2024 [facility] DATE CREATED AUTHOR AUTHOR'S ORGANIZ ATION 10/23/2024 [facility] DATE CREATED AUTHOR AUTHOR'S ORGANIZ ATION 12/03/2024 [facility] dical Specialists EPIC REASON FOR VISIT (unrecogniz ed section and content) Reason Comments Hypertension Hyperlipidemia Diabetes Reason Comments Hypertension Hyperlipidemia Diabetes Reason Comments Earache Reason Comments Med Change Request Reason Comments URI Patient Care team informatio n (unrecognized section and content) Team Status: Active Member Role Status Dates Koffi Severino MD Primary Care Provider Active Team Status: Inactive Member Role Status Dates Koffi Severino MD Primary Care Provider Active Start: July 04, 2024 End: July 04, 2024 Cristel KIMBROUGH APRN Attending Provider Active Start: July 04, 2024 End: July 04, 2024 Team Status: Active Member Role Status Dates Koffi Severino MD Primary Care Provider Active Start: July 04, 2024 Cristel KIMBROUGH APRN Attending Provider Active Start: July 04, 2024 [place] Relationship Specialty Start Date End Date Koffi Severino MD [address] [place] [address] (Fax) PCP - [place] [facility] 02/16/21 Koffi Severino MD [address] [place] [address] (Fax) PCP - General Family Medicine 04/12/23 Cena Relationship Specialty Start Date End Date Koffi Severino MD [address] [place] [phone] (Fax) PCP - [place] [facility] 02/16/21 Koffi Severino MD [address] [place] [address] (Fax) PCP - General Family Medicine 04/12/23 Cena Relationship Specialty Start Date End Date Koffi Severino MD [address] [place] [address] (Fax) PCP - [place] [facility] 02/16/21 Koffi Severino MD [address] [place] [address] (Fax) PCP - General Family Medicine 04/12/23 Cena Relationship Specialty Start Date End Date Koffi Severino MD [address] [place] [address] (Fax) PCP - [place] [facility] 02/16/21 Koffi Severino MD [address] [place] [address] (Fax) PCP - General Family Medicine 04/12/23 Cena Relationship Specialty Start Date End Date Koffi Severino MD [address] [facility] [place] [address] (Fax) PCP - [place] [facility] 02/16/21 Koffi Severino MD [address] [place] [address] (Fax) PCP - General Family Medicine 04/12/23 Cena Relationship Specialty Start Date End Date Koffi Severino MD [address] [place] [address] (Fax) PCP - [place] [facility] 02/16/21 Koffi Severino MD [address] [facility] [place] [address] (Fax) PCP - General Family Medicine 04/12/23 Cena Relationship Specialty Start Date End Date Koffi Severino MD [address] [place] [address] (Fax) PCP - [place] [facility] 02/16/21 Koffi Severino MD [address] [place] [address] (Fax) PCP - General Family Medicine 04/12/23 Cena Relationship Specialty Start Date End Date Koffi Severino MD [address] [place] [address] (Fax) PCP - [place] [facility] 02/16/21 Koffi Severino MD [address] [place] [address] (Fax) PCP - General Family Medicine 04/12/23 Goals (unrecognized section and content) Goals may be documented in a n alternate section FOR RECORDS PERTAINING TO PATIENTS WHO ARE OR HAVE BEEN ENROLLED IN A CHEMICAL DEPENDENCY/SUBSTANCEABUSE PROGRAM, SOME INFORMATION MAY BE OMITTED. This clinical summary was aggregated from multiple sources. Caution should be exercised in using it in the provision of clinical care. This summary normalizes information from multiple sources, and as a consequence, information in this document may materially change the coding, format and clinical context of patient data. In addition, data may be omitted in some cases. CLINICAL DECISIONS SHOULD BE BASED ON THE PRIMARY CLINICAL RECORDS. [facility] [employer] [facility]. provides no warranty or guarantee of the accuracy or completeness of information in this document.
[2025-01-06 16:44] VITALS: BP 166/93; PULSE 63; TEMP 36.6; O2SAT 99; BMI 32.3
--- NOTE | 2025-01-06 16:54 | ED.GENADUL1 ---
HPI HPI - General Adult General Chief complaint: Back Pain/Injury Stated complaint: Pain in Breast Time Seen by Provider: 01/06/25 16:36 Source: patient Mode of arrival: walk-in Limitations: no limitations History of Present Illness HPI narrative: Patient is a 59-year-old female who presents to the emergency department for the evaluation of pain in the left ribs that began just prior to arrival. She states she was pushing a car in her driveway when she felt a pop in the left lateral rib cage with pain radiating to the left breast. She states she feels a vibration type sensation to the left flank. She had no fall or direct injury. She is not on any blood thinners. She is able to ambulate. Pain is worse with movement. Related Data Home Medications ?Medication ?Instructions ?Recorded ?Confirmed albuterol sulfate 90 mcg/actuation inhalation 01/06/25 aerosol inhaler amlodipine 10 mg tablet mg 01/06/25 gemfibrozil 600 mg tablet mg 01/06/25 lisinopril 40 mg tablet mg 01/06/25 metoprolol tartrate 100 mg tablet mg 01/06/25 spironolactone 25 mg tablet mg 01/06/25 Previous Rx's ?Medication ?Instructions ?Recorded ketorolac 10 mg tablet 10 mg PO TID PRN pain #10 tabs 01/06/25 methocarbamol 750 mg tablet 750 mg PO TID PRN pain #20 tabs 01/06/25 oxycodone-acetaminophen 5 mg-325 1 tab PO Q6H PRN pain 4 days #15 01/06/25 mg tablet (Percocet) tabs Allergies Allergy/AdvReac Type Severity Reaction Status Date / Time cefazolin (From Ancef) Allergy Mild Anaphylaxis Verified 01/06/25 16:42 moxifloxacin (From Avelox) Allergy Mild Rash Verified 01/06/25 16:42 sulfamethoxazole (From Allergy Mild Rash Verified 01/06/25 16:42 Bactrim) trimethoprim (From Bactrim) Allergy Mild Rash Verified 01/06/25 16:42 Opioid HPI Opioid Management Most Recent Opioid Data: Last Pain Scale 9 01/06/25 17:03 01/06/25 Last MAR Pain Assessment 01/06/25 17:03 Review of Systems ROS Constitutional Denies: fever or chills Ears, nose, mouth, and throat Denies: throat pain or nasal congestion Cardiovascular Denies: chest pain Respiratory Denies: shortness of breath Gastrointestinal Denies: nausea or vomiting Musculoskeletal Reports: back pain Integumentary/Breast Denies: rash Neurological Denies: numbness in extremities or weakness in extremities Hematologic/Lymphatic Denies: easy bruising or easy bleeding [facility] Social History Little interest or pleasure in doing things: not at all Feeling down, depressed, or hopeless: not at all Exam Narrative Exam Narrative: Gen.: Awake, alert, in no distress Head: Normocephalic, atraumatic ENT: Moist mucous membranes Respiratory: No respiratory distress, lungs clear bilaterally; tenderness of the left lateral chest wall with no ecchymosis or crepitance. Cardio: Regular rate and rhythm Extremities: Moves extremities equally, no injuries noted Psych: Normal mood and affect Neuro: No focal neuro deficit Skin: Warm, dry, intact Constitutional Vital Signs, click to edit/add: Last Vital Signs Temp 97.9 F 01/06/25 16:44 Pulse 63 01/06/25 16:44 Resp 18 01/06/25 16:44 BP 166/93 H 01/06/25 16:44 Pulse Ox 99 01/06/25 16:44 O2 Del Method Room Air 01/06/25 16:44 Course Vital Signs Vital signs: Vital Signs Temperature 97.9 F 01/06/25 16:44 Pulse Rate 63 01/06/25 16:44 Respiratory Rate 18 01/06/25 16:44 Blood Pressure 166/93 H 01/06/25 16:44 Pulse Oximetry 99 01/06/25 16:44 Oxygen Delivery Method Room Air 01/06/25 16:44 Temperature 97.9 F 01/06/25 16:44 Pulse Rate 63 01/06/25 16:44 Respiratory Rate 18 01/06/25 16:44 Blood Pressure 166/93 H 01/06/25 16:44 Pulse Oximetry 99 01/06/25 16:44 Oxygen Delivery Method Room Air 01/06/25 16:44 Medical Decision Making MDM Narrative Medical decision making narrative: X-rays reviewed by the radiologist showing a possible acute fracture of the left fifth rib and a subacute healing fracture of the left eighth rib. Patient was given these results, she appears well-hydrated and nontoxic with stable vital signs, no hemodynamic compromise. She was treated for pain in the ER. She was given a short course of analgesics, muscle relaxants and NSAIDs for home. Follow-up with primary care for reevaluation and return to the ER if symptoms change or worsen SUPERVISED APC VISIT, PHYSICIAN ATTESTATION: Based on the medical record the care appears appropriate. ? Medical Records Medical records reviewed: Yes I reviewed the patient's medical records Imaging Data Chest x-ray: Attestation: I have reviewed the pertinent imaging results. Discharge Plan Discharge Chief Complaint: Back Pain/Injury Clinical Impression: Chest wall pain, Fracture of rib Patient Disposition: Home, Self-Care Time of Disposition Decision: 17:38 Condition: Good Prescriptions / Home Meds: New ketorolac 10 mg tablet 10 mg PO TID PRN (Reason: pain) Qty: 10 0RF oxycodone-acetaminophen [Percocet] 5-325 mg tablet 1 tab PO Q6H PRN (Reason: pain) 4 Days Qty: 15 0RF Rx Instructions: DX: S22.3 methocarbamol 750 mg tablet 750 mg PO TID PRN (Reason: pain) Qty: 20 0RF No Action metoprolol tartrate 100 mg tablet spironolactone 25 mg tablet amlodipine 10 mg tablet gemfibrozil 600 mg tablet albuterol sulfate 90 mcg/actuation HFA aerosol inhaler INHALATION lisinopril 40 mg tablet Print Language: Upper Sorbian Instructions: Rib Fracture (ED), Chest Wall Pain (ED) Referrals: HOLGER SEVERINO [Primary Care Provider] - 1 week
[2025-01-06] MEDS: KETOROLAC TROMETHAMINE 60 MG/2 ML VIAL IM (17:02)
[2025-01-06] MEDS: OXYCODONE HCL/ACETAMINOPHEN 5MG/325MG 1 TAB PO (17:03)
[2025-01-06] MEDS: ORPHENADRINE 60 MG/ 2 ML VIAL IM (17:03)
[2025-01-06 17:53] VITALS: BP 147/88; PULSE 84; O2SAT 100
== END 2025-01-06 17:54 | disposition home or self-care (01) ==
PROVIDERS: Emergency Provider Student in an Organized Health Care Education/Training Program; PCP Family Medicine
DX: S22.42XA Multiple fractures of ribs, left side, initial encounter for closed fracture (principal); X50.0XXA Overexertion from strenuous movement or load, initial encounter; R07.89 Other chest pain
CPT/HCPCS: 71101; 94667; 96372; 99284; J1885; J2360

== ENCOUNTER 2025-01-16 13:25 | Emergency (ER) | payer BC, SELFPAY ==
[2025-01-16 13:29] VITALS: BP 154/79; PULSE 74; TEMP 37.7; O2SAT 99; BMI 32.3
--- OUTSIDE RECORDS SUMMARY | 2025-01-16 13:35 | XMS_ITS | CCD ---
Author Organization [facility] Care Team Providers Care Child Care Coordinator Name Role Phone VALARIE WEISS Referring Unavailable [...] Unavailable HEMEYER ., DR WREN Attending Unavailable BOSTON, DR ABRAHAN Mitchell Consulting Unavailable Diamond Mayes Unavailable Mona Bolivar Unavailable KOFFI SEVERINO Primary Care Physician Unavail able KOFFI SEVERINO Referring Unavailable Jak Dixon Attending UnavailJak Perez Admitting UnavailMD Koffi Larson Primary Care Provider [phone] DERICK Bonner Attending Provider [phone] Cristel Bonner Admitting Unavailable Cristel Bonner Attending Unavailable Koffi Severino Primary Care Unavailable Koffi Severino MD Unavailable Koffi Severino MD Primary Care Provider Koffi Severino MD Unavailable Koffi Severino MD Primary Care Provider [phone] Koffi Severino MD Unavailable Koffi Severino MD Primary Care Provider [phone] KOFFI SEVERINO Attending Unavailable KOFFI SEVERINO Attending [...] ceFAZolin; Translations: [Ancef] Drug Allergy [address] [facility] Repository (1 source) moxifloxacin Drug Allergy [address] [facility] (1 source) Sulfamethoxazole / Trimethoprim Drug Allergy [address] [facility] (20 sources) ceFAZolin; Translations: [cefazolin] Drug Allergy 7 Unknown (qualifier value) [facility] (20 sources) moxifloxacin; Translations: [moxifloxacin] Drug Allergy 7 anaphylaxis, Weal (disorder) [facility] (18 sources) Sulfamethoxazole / Trimethoprim; Translations: [sulfamethoxazole-tr imethoprim] Drug Allergy 7 hives, Weal (disorder) [facility] (1 source) Sulfamethoxazole / Trimethoprim; Translations: [Bactrim] Drug Allergy [facility] Repository (17 sources) Sulfamethoxazole; Translations: [sulfamethoxazole] Drug Allergy 2 [facility] (17 sources) Trimethoprim; Translations: [trimethoprim] Drug Allergy 2 [facility] (1 source) ceFAZolin Drug Allergy 4 [facility] Repository (1 source) moxifloxacin Drug Allergy 4 [facility] (6 sources) metFORMIN Drug Allergy 4 [facility] Medications Current Medications Medication Drug Class(es) Dates Sig (Normalized) Sig (Original) Albuterol (19 sources) beta2-Adrenergic Agonist Start: 07-04-2024 Albuterol Sulfate [...] 06/07/2022 Active ALPRAZolam 0.5 mg oral tablet (18 sources) Benzodiazepine Start: 04-25-2023 ALPRAZolam (Xa nax) [...] aspirin 81 mg delayed release oral tablet (16 sources) Platelet Aggregation Inhibitor, Nonsteroidal Anti-inflammatory Drug [...] hydrochloride 0.137 mg/actuat metered dose nasal spray (10 sources) Histamine-1 Receptor Antagonist Start: 07-22-2024 End: 07-22-2025 take 1 spray(s) nasal route in the morning azelastine (Astelin) 0.1 % nasal spray Indications: Eustachian tube dysfunction, bilateral Administer 1 spray into each nostril in the morning and 1 spray before bedtime. Use in each nostril as directed. 30 mL 12 07/22/2024 07/22/2025 Active Calcium (2 sources) Phosphate Binder, Calcium Start: 06-12-2024 calcium (as carbonate) 500 mg oral tablet Refills(s) 0 Start Date: 06/12/24 Status: Ordered calcium citrate 1040 mg oral tablet (14 sources) take 1 tablet by mouth twice daily in the morning calcium citrate 1040 MG tablet Take 250 mg by mouth in the morning and 250 mg before bedtime. 1 tablet two times daily, orally. Active cholecalciferol 0.25 mg oral tablet (14 sources) Vitamin D take 1 tablet by mouth in the morning cholecalciferol (Vitamin D-3) 250 MCG (74319 UT) tablet Take 10,000 Units by mouth in the morning. Active diphenhydrAMINE hydrochloride 25 mg oral tablet (1 source) Histamine-1 Receptor Antagonist take 1 tablet by mouth every twenty-four hours Benadryl Allergy 25 MG 1 tablet at bedtime as needed Orally Once a day Active esomeprazole 20 mg delayed release oral capsule (14 sources) Proton Pump Inhibitor take 2 capsules [...] 10/29/2024 Active gabapentin 300 mg oral capsule (16 sources) Anti-epileptic Agent Start: 04-01-2024 gabapenti n [...] / neomycin 3.5 mg/ml / polymyxin b 81700 unt/ml otic suspension (6 sources) Aminoglycoside Antibacterial, Polymyxin-class Antibacterial, Corticosteroid Start: 07-22-2024 End: 10-21-2024 ukxcptfd-tuftssbpg-pnuobfxoj isone (Cortisporin) 3.5-07175-2 otic suspension Indications: Infective Otitis Externa Apply [...] Active magnesium oxide 400 mg oral tablet (16 sources) Start: 06-12-2024 magnesium oxid e 400 [...] Status: Ordered pioglitazone 30 mg oral tablet (6 sources) Peroxisome Proliferator Receptor alpha Agonist, Peroxisome [...] days Active sucralfate 1000 mg oral tablet (16 sources) Aluminum Complex Start: 06-12-2024 sucralfate 1 [...] Problem Date Documented Date Episodic/Chronic Anxiety disorders (14 sources) Panic disorder without agoraphobia; Translations: [Panic disorder [episodic paroxysmal anxiety]] Onset: 04-25-2023 04-25-2023 Chronic Cardiac and circulatory congenital anomalies (1 source) Atrial septal defect; Translations: [Atrial septal defect] Onset: 12-04-2018 Chronic Cardiac dysrhythmias (14 sources) Tachycardia-bradycar jordan; Translations: [Sick sinus syndrome] [...] esophagitis] Onset: 07-17-2017 04-25-2023 Chronic Essential hypertension (20 sources) Essential (primary) hypertension; Translations: [Benign essential hypertension] Onset: 04-12-2023 04-25-2023 Chronic Genitourinary congenital anomalies (14 sources) Congenital stricture of urethra; Translations: [Congenital stricture of urethra] Onset: 04-25-2023 04-25-2023 Chronic Malaise and fatigue (14 sources) Fatigue; Translations: [Chronic fatigue, unspecified] Onset: 04-25-2023 04-25-2023 Chronic Mood disorders (14 sources) Severe recurrent major depression without psychotic features; Translations: [Major depressive disorder, recurrent severe without psychotic features] Onset: 04-25-2023 04-25-2023 Chronic Nutritional deficiencies (14 sources) Vitamin D deficiency; Translations: [Vitamin D deficiency, unspecified] Onset: 04-25-2023 04-25-2023 Chronic Other aftercare (1 source) 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; Translations: [KNOCK OUT HAND CURRENT USE OF ASPIRIN] Onset: 04-12-2023 Episodic Other aftercare (1 source) 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 inspector (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 therapy; Translations: [OTH USP CURRENT DRUG THERAPY] Onset: 04-12-2023 Episodic Other connective tissue disease (3 sources) Pain in right hand; Translations: [PAIN IN RIGHT HAND] Onset: 04-11-2023 Episodic Other ear and sense organ disorders (2 sources) Acute infective otitis externa; Translations: [Other infective otitis externa, left ear] 07-22-2024 Episodic Other lower respiratory disease (2 sources) Cough; Translations: [Acute cough] 11-30-2024 Episodic Other nervous system disorders (14 sources) Piriformis syndrome; Translations: [Lesion of sciatic nerve, unspecified lower limb] Onset: 04-25-2023 04-25-2023 Chronic Other nutritional; endocrine; and metabolic disorders (14 sources) Metabolic syndrome X; Translations: [Metabolic syndrome] Onset: 04-25-2023 04-25-2023 Chronic Other nutritional; endocrine; and metabolic disorders (18 sources) Obesity caused by energy imbalance; Translations: [...] Date Documented Da te Episodic/Chronic Abdominal hernia (14 sources) Hiatal hernia; Translations: [Diaphragmatic hernia without obstruction or gangrene] Onset: 04-25-2023 04-25-2023 Episodic Fluid and electrolyte disorders (16 sources) Hypokalemia; Translations: [Hypokalemia] Onset: 04-25-2023 04-25-2023 Episodic Other aftercare (20 sources) Polypharmacy ; Translations: [Other senior care (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 therapy] Onset: 12-04-2020 10-29-2023 Episodic Other bone disease and musculoskeletal deformities (14 sources) Osteopenia; Translations: [Other specified disorders of bone density and structure, unspecified site] Onset: 04-25-2023 04-25-2023 Episodic Other connective tissue disease (14 sources) Calcaneal spur of left foot; Translations: [...] malignant neoplasm of digestive organs; Translations: [FAM HX MALIG NEOPLASM DIGESTIV ORGN] Onset: 05-03-2022 Episodic [...] By: #### 4 96 #### [facility] [address], [address] [place] [address] Stock Sorter: Conrado Pace MD No Panel InformationOrdered By: Cristel Loja on 07-04-2024 Quick Strep (POC) [facility] XR chest 2V*on 07-04-2024 XR chest 2V* [facility] [place] [address] XRay Report Signed Patient: Lula Yo MR#: [id number] 15 : 1965 Acct:[id number] Age/Sex: 58 / F ADM Date: 07/04/24 Loc: XDUCLY Room: Type: [facility] Attending Dr: Cristel Loja - DERICK Copies [...] Jag Ramirez M.D.07/04/2024 2:11 PM Dictation Location: [place] [address] Transcribed By: IMELDA 07/04/241410 Dictated By: Jag Ramirez II, MD 07/04/241410 Signed By: 07/04/24 141 Normal [facility] BI [facility] 06-16-2024 BI MAMMOGRAM SCREENING BILATERAL This is [...] IS VERY IMPORTANT TO YOUR HEALTH. THE [employer] GUIDELINES RECOMMEND THAT WOMEN 40 [...] after patient or guardian consented to allow [employer] to record this visit. [employer] behavioral health specialist and provider reviewed before signing. TANIA: Romaine Ramirez Portions of this record may have been created with voice recognition artificial intelligence software, specifically [employer], [employer] and or [employer]. Substitutions may have occurred due to the [...] Pacemaker catheter: Mother. Parkinsons disease: Father. Normal [facility] Comment on above: Result Comment: Elec tronically Signed By: Zack WOODARD, Jak Arana\.br\Date and Time Signed: 06/13/24 10:45 EDT\.br\Electronically Co-Signed [...] IS NONOBSTRUCTIVE, NONSPECIFIC ELECTRONICALLY SIGNED BY: Nathalia James DO Normal Not Available COVID/FLU/RSV RT-PCRon 11-23 SARS-CoV-2 (COVID-19) RNA ALYSSA+probe Ql (Unsp spec) Positive [employer] Other COVID/FLU/RSV RT-PCR Negative [facility] [employer] Other COVID + FLU Quick Testingon 08-15-2023 SARS-CoV-2 (COVID-19) RNA ALYSSA+probe Ql (Unsp spec) Negative [employer] Other COVID + FLU Quick Testing Negative [employer] Other Quick Strepon 08-15-2023 S. pyogenes Org specific cx Ql (Throat) Negative [employer] Other Quick Strep [employer] Other XR HAND RT MIN 3Von 04-11-20 [...] by: ASHLY DUNCAN Date: 2023-04-10 23:14 Normal [facility] 01-17-2023 L Specimen: [id number] Received: 01/17/23 Status: HIEU Quan Num: [id number] Spec Type: Surgical Subm Dr: Bryan Georges DO Tissues: A Colon Biopsy (ASCENDING BX) Procedures: HE/2, Gross/Micro L4 Age/ Patient Sex Location Account Attending Physician Lula Yo 57/F [place] [id number] Bryan Georges DO SPEC NUM: [id number] RECD: 01/17/23 STATUS: HIEU QUAN NUM: [id number] FARHAN: 01/17/23- SUBM DR: Bryan Georges DO ENTERED: 01/17/23-[address]: Dawson [facility] SPEC TYPE: Surgical DEPT: S ORDERED: HE/2, [...] support the above pathologic diagnosis. CPT Codes 67874 Specimen: [id number] Received: 01/17/23 Status: HIEU Naidupat Num: [id number] Spec Type: Surgical Subm Dr: Bryan Georges DO Tissues: A Colon Biopsy (ASCENDING BX) Procedures: HE/Diane, Hannah/Haydee L4 Patient: Lula Yo [id number] (Continued) Signed (signatur e on file) Agus Estraad MD 01/18/23 1210 [facility] XR Foot Complete Left*on XR Foot [...] by Claudy Salinas on 07/10/2022 1445 Normal [facility] Handle And Vent Machine Operator MG MAMM SCREEN 3D HARJINDER CADon 04-27-2022 MG MAMM SCREEN 3D HARJINDER CAD Patient: LULA YO Exam Date: 04/27/2022 : 1965 Gender:F Ordering : DR KOFFI SEVERINO . Admission #: [id number] Family : Order #: [id number] CLICK HERE TO VIEW EXAM RADIOLOGY REPORT [...] skin cancer at age 79. LOCATION: [facility] BREAST COMPOSITION: Scattered areas fibroglandular density. FINDINGS: [...] MD on 04/27/2022 at 14:[address] [facility] Q - COMPREHENSIVE METABOLIC PANEL W/EGFRon 04-27-2022 Albumin [Mass/Vol] 4.5 g/dL Normal 3.6-5.1 [facility] [place] [employer] And Vent Machine Operator Comment on above: Order Comment: [facility] performed at: [facility], [address] [facility], [address] [place] [address], [address] [place] [address], Product Grader: Conrado Pace MD [facility] Date/Time: [facility] Results Received Date/Time: [facility] Reported Date/Time: FASTING: NO Performed By: #### 4 96X, 968T, [id number] #### [facility] Default [address] [place] [address] Albumin/Globulin [Mass ratio] 2.0 {ratio} Normal 1.0-2.5 [facility] Handle And Vent Machine Operator Comment on above: Order Comment: [facility] performed at: [facility], [address], [address] [place] [address], [address] [place] [address], Product Grader: Conrado Pace MD [facility] Date/Time: [facility] Results Received Date/Time: [facility] Reported Date/Time: FASTING: NO Performed By: #### 4 96X, 968T, [id number] #### [facility] Default [address] [place] [address] ALP [Catalytic activity/Vol] 70 U/L Normal 37-153 [facility] Handle And Vent Machine Operator Comment on above: Order Comment: [facility] performed at: [facility], [address] [place] [address], [address] [place] [address], [address] [place] [address], Product Grader: Conrado aPce MD [facility] Date/Time: [facility] Received Date/Time: [facility] Reported Date/Time: FASTING: NO Performed By: #### 4 96X, 968T, [id number] #### [facility] Default [address] [place] [address] ALT [Catalytic activity/Vol] 26 U/L Normal 6-29 [facility] Handle And Vent Machine Operator Comment on above: Order Comment: [facility] performed at: [facility], [address], [address] [place] [address], [address] [place] [address], Product Grader: Conrado Pace MD [facility] Date/Time: [facility] Results Received Date/Time: [facility] Reported Date/Time: FASTING: NO Performed By: #### 4 96X, 968T, [id number] #### [facility] Default [address] [place] [address] AST [Catalytic activity/Vol] 28 U/L Normal 10-35 [facility] Comment on above: Order Comment: [facility] performed at: [facility], [address], [address] [place] [address], [address] [place] [address], Product Grader: Conrado Pace MD [facility] Date/Time: [facility] Received Date/Time: [facility] Reported Date/Time: FASTING: NO Performed By: #### 4 96X, 968T, [id number] #### [facility] Default [address] [place] [address] Bilirubin [Mass/Vol] 0.5 mg/dL Normal 0.2-1.2 [facility] Comment on above: Order Comment: [facility] performed at: [facility], [address] , [address] [place] [address], [address] [place] [address], Product Grader: Conrado Pace MD [facility] Date/Time: [facility] Results Received Date/Time: [facility] Reported Date/Time: FASTING: NO Performed By: #### 4 96X, 968T, [id number] #### [facility] Default [address] [place] [address] BUN/CREA 15 NOT APPLICABLE Normal 6-22 [facility] Comment on above: Order Comment: [facility] performed at: [facility], [address] , [address] [place] [address], [address] [place] [address], Product Grader: Conrado Pace MD [facility] Date/Time: [id number] [facility] Received Date/Time: [facility] Reported Date/Time: FASTING: NO Performed By: #### 4 96X, 968T, [id number] #### [facility] Default [address] [place] [address] Calcium [Mass/Vol] 9.6 mg/dL Normal 8.6-10.4 [facility] Specialist Comment on above: Order Comment: [facility] performed at: [facility], [address], [address] [place] [address], [address] [place] [address], Product Grader: Conrado Pace MD [facility] Date/Time: [facility] Received Date/Time: [facility] Reported Date/Time: FASTING: NO Performed By: #### 4 96X, 968T, [id number] #### [facility] Default [address] [place] [address] Chloride [Moles/Vol] 100 mmol/L Normal 98-110 [facility] Specialist Comment on above: Order Comment: [facility] performed at: [facility], [address] [place] [address], [address] [place] [address], [address] [place] [address], Product Grader: Conrado Pace MD [facility] Date/Time: [facility] Received Date/Time: [facility] Reported Date/Time: FASTING: NO Performed By: #### 4 96X, 968T, [id number] #### [facility] [address] [place] [address] CO2 [Moles/Vol] 29 mmol/L Normal 20-32 [facility] Handle And Vent Machine Operator Comment on above: Order Comment: [facility] performed at: [facility], [address] [facility], [address] [place] [address], [address] [place] [address], Product Grader: Conrado Pace MD [facility] Date/Time: [facility] Results Received Date/Time: [facility] Reported Date/Time: FASTING: NO Performed By: #### 4 96X, 968T, 70582Q #### [facility] Default [address] [place] [address] Creatinine [Mass/Vol] 0.71 mg/dL Normal 0.50-1.[address] [facility] Handle And Vent Machine Operator Comment on above: Order Comment: [facility] performed at: [facility], [address], [address] [place] [address], [address] [place] [address], Product Grader: Conrado Pace MD [facility] Date/Time: [facility] Results Received Date/Time: [facility] Reported Date/Time: FASTING: NO Result Comment: For patients >49 years of age, the reference limit for Creatinine is approximately 13% higher for people identified as -Swiss. Performed By: #### 4 96X, 968T, [id number] #### [facility] Default [address] [place] [address] eGFRAA ([facility]) 111 mL/min/1.73m2 Normal > OR = [address] [facility] Handle And Vent Machine Operator Comment on above: Order Comment: [facility] performed at: [facility], [address], [address] [place] [address], [address] [place] [address], Product Grader: Conrado Pace MD [facility] Date/Time: [facility] Results Received Date/Time: [facility] Reported Date/Time: FASTING: NO Performed By: #### 4 96X, 968T, [id number] #### [facility] Default [address] [place] [address] eGFRNAA ([facility]) 96 mL/min/1.73m2 Normal > OR = [address] [facility] Handle And Vent Machine Operator Comment on above: Order Comment: [facility] performed at: [facility], [address] , [address] [place] [address], [address] [place] [address], Product Grader: Conrado Pace MD [facility] Date/Time: [facility] Results Received Date/Time: [facility] Reported Date/Time: [id number] FASTING: NO Performed By: #### 4 96X, 968T, [id number] #### [facility] Default [address] [place] [address] Globulin (S) [Mass/Vol] 2.3 g/dL Normal 1.9-3.7 [facility] Specialist Comment on above: Order Comment: [facility] performed at: [facility], [address], [address] [place] [address], [address] [place] [address], Product Grader: Conrado Pace MD [facility] Date/Time: [facility] Received Date/Time: [facility] Reported Date/Time: FASTING: NO Performed By: #### 4 96X, 968T, [id number] #### [facility] Default [address] [place] [address] Glucose [Mass/Vol] 110 mg/dL Normal 65-139 [facility] Specialist Comment on above: Order Comment: [facility] performed at: [facility], [address], [address] [place] [address], [address] [place] [address], Product Grader: Conrado Pace MD [facility] Date/Time: [facility] Results Received Date/Time: [facility] Reported Date/Time: FASTING: NO Result Comment: Non-fasting reference interval For someone without known diabetes, a glucose value between 100 and 125 mg/dL is consistent with prediabetes and should be confirmed with a follow-up test. Performed By: #### 4 96X, 968T, [id number] #### [facility] Default [address] [place] [address] Potassium [Moles/Vol] 3.3 mmol/L Low 3.5-5.3 [facility] Handle And Vent Machine Operator Comment on above: Order Comment: [facility] performed at: [facility], [address] , [address] [place] [address], [address], Product Grader: Conrado Pace MD [facility] Date/Time: [facility] Results Received Date/Time: [facility] Reported Date/Time: FASTING: NO Performed By: #### 4 96X, 968T, [id number] #### [facility] Default [address] [place] [address] Protein [Mass/Vol] 6.8 g/dL Normal 6.1-8.1 [facility] [place] Handle And Vent Machine Operator Comment on above: Order Comment: [facility] performed at: [facility], [address], [address] [place] [address], [address] [place] [address], Product Grader: Conrado Pace MD [facility] Date/Time: [facility] Received Date/Time: [facility] Reported Date/Time: FASTING: NO Performed By: #### 4 96X, 968T, [id number] #### [facility] Default [address] [place] [address] Sodium [Moles/Vol] 139 mmol/L Normal 135-146 [facility] [place] [employer] Vent Machine Operator Comment on above: Order Comment: [facility] performed at: [facility], [address] [place] [address], [address] [place] [address], [address] [place] [address], Product Grader: Conrado Pace MD [facility] Date/Time: [facility] Received Date/Time: [facility] Reported Date/Time: FASTING: NO Performed By: #### 4 96X, 968T, 77668Q #### [facility] Default [address] [place] [address] Urea nitrogen [Mass/Vol] 11 mg/dL Normal 7-25 [facility] Handle And Vent Machine Operator Comment on above: Order Comment: [facility] performed at: [facility], [address], [address] [place] [address], [address] [place] [address], Product Grader: Conrado Pace MD [facility] Date/Time: [facility] Received Date/Time: [facility] Reported Date/Time: FASTING: NO Performed By: #### 4 96X, 968T, 11512T #### [facility] [address] [place] [address] Q - HEMOGLOBIN A1Con 022 HEMOGLOBIN A1c 6.8 % of total Hgb High <5.7 No rthern [place] Handle And Vent Machine Operator Comment on above: Order Comment: [facility] performed at: [facility], [address] [place] [address], [address] [place] [address], [address] [place] [address], Product Grader: Conrado Pace MD [facility] Date/Time: [facility] [...] children. Performed By: #### 4 96X, 968T, 22497S #### [facility] [address] [place] [address] Q - Lipid Panelon 04-27-2022 Cholesterol [Mass/Vol] 168 mg/dL Normal <200 No [facility] Handle And Vent Machine Operator Comment on above: Order Comment: [facility] performed at: [facility], [address], [address] [place] [address], [address], Product Grader: Conrado Pace MD [facility] Date/Time: [id number] [facility] Received Date/Time: [facility] Reported Date/Time: FASTING: NO Performed By: #### 4 96X, 968T, [id number] #### [facility] Default [address] [place] [address] Cholesterol in HDL [Mass/Vol] 43 mg/dL Low > OR = 50 [facility] Handle And Vent Machine Operator Comment on above: Order Comment: [facility] performed at: [facility], [address] , [address] [place], [address], Product Grader: Conrado Pace MD [facility] Date/Time: [facility] Received Date/Time: [facility] Reported Date/Time: FASTING: NO Performed By: #### 4 96X, 968T, [id number] #### [facility] Default [address] [place] [address] Cholesterol in LDL [Mass/Vol] 95 mg/dL Normal [facility] [facility] Comment on above: Order Comment: [facility] performed at: [facility], [address] [facility], [address] [place] [address], [address] [place] [address], Product Grader: Conrado Pace MD [facility] Collection Date/Time: [facility] [...] LDL-C. Aba KELLER et al. PERLA. 2013;310(19): 7012-4696 (http://education.eASIC.eMarketer/faq/RNQ958) Performed By: #### 4 96X, 968T, [id number] #### [facility] Default [address] [place] [address] Cholesterol.total/Chol esterol in HDL [Mass ratio] 3.9 {ratio} Normal <5.0 [place] [facility] Operator Comment on above: Order Comment: [facility] performed at: [facility], [address] , [address] [place], [address], Product Grader: Conrado Pace MD [facility] Date/Time: [id number] [facility] Results Received Date/Time: [facility] Reported Date/Time: FASTING: NO Performed By: #### 4 96X, 968T, [id number] #### [facility] [address] [place] [address] NON HDL CHOLESTEROL 125 mg/dL (calc) Normal <130 [facility] Handle And Vent Machine Operator Comment on above: Order Comment: [facility] performed at: [facility], [address] [facility], [address] [place] [address], [address] [place] [address], Product Grader: Conrado Pace MD [facility] Date/Time: [facility] Results Received Date/Time: [facility] Reported Date/Time: FASTING: NO Result Comment: For patients with diabetes plus 1 major ASCVD risk factor, treating to a non-HDL-C goal of <100 mg/dL (LDL-C of <70 mg/dL) is considered a therapeutic option. Performed By: #### 4 96X, 968T, [id number] #### [facility] [address] [place] [address] Triglyceride [Mass/Vol] 199 mg/dL High <150 [facility] Machine Operator Comment on above: Order Comment: [facility] performed at: [facility], [address] [place] [address], [address] [place] [address], [address] [place] [address], Product Grader: Conrado Pace MD [facility] Date/Time: [id number] [facility] Results Received Date/Time: [facility] Reported Date/Time: FASTING: NO Performed By: #### 4 96X, 968T, [id number] #### [facility] [address] [place] [address] XR Ankle Complete Righton XR Ankle Complete Right HISTORY: Lateral pain Injury less than 24 hours ago FINDINGS: Minimal anterolateral soft tissue swelling. Mild intertarsal arthritis. Very small plantar and achilles calcaneal spurs. No cortical or stress fracture. Normal subtalar joint and Bohler's angle. IMPRESSION: Mild arthritis, no fracture. Report reported and signed by Claudy Salinas on 01/15/2022 1200 Normal [facility] Machine Operator XR Foot Complete Right*on XR Foot Complete Right* HISTORY: Injury less than 24 hours FINDINGS: Mild soft tissue swelling distal metatarsal region. No cortical or stress fracture. Minimal intertarsal arthritis. IMPRESSION: Minimal intertarsal arthritis, no fracture. Report reported and signed by Claudy Salinas on 01/15/2022 1137 Normal [facility] Complete Blood Count with Au to Diffon 10-25-2021 Basophils (Bld) [#/Vol] 0.05 10*3/uL Normal 0.00-0.20 [facility] Specialist Comment on above: Performed By: #### C BCAD, CMP #### [facility] [address] [place], [place] [id number] Basophils/100 WBC (Bld) 0.7 % Normal [facility] Comment on above: Performed By: #### C BCAFlako, CMP #### [facility] [address] [place], [place] [id number] Eosinophils (Bld) [#/Vol] 0.14 10*3/uL Normal 0.02-0.50 [facility] Specialist Comment on above: Performed By: #### C BCAD, CMP #### [facility] [address] [place], [place] [id number] Eosinophils/100 WBC (Bld) 2.1 % Normal [facility] Specialist Comment on above: Performed By: #### C BCAD, CMP #### [facility] [address] [place], [place] [id number] Erythrocyte distribution width (RBC) [Ratio] 12.9 % Normal 11.0-15.0 [facility] Specialist Comment on above: Performed By: #### C BCAD, CMP #### [facility] [address] [place], [place] [id number] Hematocrit (Bld) [Volume fraction] 40.1 % Normal 35.0-47.0 [facility] Specialist Comment on above: Performed By: #### C BCAD, CMP #### [facility] [address] [place], [place] [id number] Hemoglobin (Bld) [Mass/Vol] 13.3 g/dL Normal 11.6-15.5 [facility] Specialist Comment on above: Performed By: #### C BCAD, CMP #### [facility] [address] [place], [place] [id number] Lymphocytes (Bld) [#/Vol] 2.4 10*3/uL Normal 0.9-3.9 [facility] Comment on above: Performed By: #### C BCAFlako, CMP #### [facility] [address] [place], [place] [id number] Lymphocytes/100 WBC (Bld) 35.9 % Normal [facility] Comment on above: Performed By: #### C ARMIDA, CMP #### [facility] [address] [place], [place] [id number] MCH (RBC) [Entitic mass] 30.7 pg Normal 27.0-33.0 [facility] Comment on above: Performed By: #### C ARMIDA, CMP #### [facility] [address] [place], [place] [id number] MCHC (RBC) [Mass/Vol] 33.2 g/dL Normal 32.0-36.0 [facility] Comment on above: Performed By: #### C ARMIDA, CMP #### [facility] [address] [place], [place] [id number] MCV (RBC) [Entitic vol] 93 fL Normal 80-100 [facility] Comment on above: Performed By: #### C ARMIDA, CMP #### [facility] [address] [place], [place] [id number] Monocytes (Bld) [#/Vol] 0.4 10*3/uL Normal 0.2-0.9 [facility] Comment on above: Performed By: #### C BCAFlako, CMP #### [facility] [address] [place], [place] [id number] Monocytes/100 WBC (Bld) 6.6 % Normal [facility] Comment on above: Performed By: #### C BCAFlako, CMP #### [facility] [address] [place], [place] [id number] Neutrophils (Bld) [#/Vol] 3.6 10*3/uL Normal 1.5-7.8 [facility] Comment on above: Performed By: #### C ARMIDA, CMP #### [facility] [address] [place], [place] [id number] Neutrophils/100 WBC (Bld) 54.3 % Normal [facility] Comment on above: Performed By: #### C BCAD, CMP #### [facility] [address] [place], [place] [id number] Platelet mean volume (Bld) [Entitic vol] 10.50 fL Normal 7.50-12.50 [facility] Comment on above: Performed By: #### C BCAD, CMP #### [facility] [address] [place], [place] [id number] Platelets (Bld) [#/Vol] 255 10*3/uL Normal 140-400 [facility] Specialist Comment on above: Performed By: #### C BCAFlako, CMP #### [facility] [address] [place], [place] [id number] RBC (Bld) [#/Vol] 4.33 10*6/uL Normal 3.90-5.20 [facility] Specialist Comment on above: Performed By: #### C BCAD, CMP #### [facility] [address] [place], [place] [id number] RDW-SD 43.8 fL Normal 37.0-50.0 [facility] Specialist Comment on above: Performed By: #### C BCAFlako, CMP #### [facility] [address] [place], [place] [id number] WBC (Bld) [#/Vol] 6.7 10*3/uL Normal 3.8-11.0 [facility] Handle And Vent Machine Operator Comment on above: Performed By: #### C BCAD, CMP #### [facility] [address] [place], [place] [id number] [facility] 10-25-2021 Albumin [Mass/Vol] 4.7 g/dL Normal 3.6-5.1 [facility] Handle And Vent Machine Operator Comment on above: Performed By: #### C BCAD, CMP #### [facility] [address] [place], [place] [id number] Albumin/Globulin [Mass ratio] 2.4 {ratio} Normal 1.0-2.5 [facility] Specialist Comment on above: Performed By: #### C BCAD, CMP #### [facility] [address] [place], [place] [id number] ALP [Catalytic activity/Vol] 73 U/L Normal 35-119 [facility] Comment on above: Performed By: #### C BCAD, CMP #### [facility] [address] [place], [place] [id number] ALT [Catalytic activity/Vol] 25 U/L Normal 6-33 [facility] Comment on above: Result Comment: 10/18 Female reference range changed. Performed By: #### C BCAD, CMP #### [facility] [address] [place], [place] [id number] Anion gap [Moles/Vol] 22 mmol/L High 12-20 [facility] Comment on above: Result Comment: Effe ctive 11/23/2019 reference range changed. Performed By: #### C BCAD, CMP #### [facility] [address] [facility] [facility] [place] [place] [id number] AST [Catalytic activity/Vol] 25 U/L Normal 9-34 [facility] Comment on above: Performed By: #### C BCAD, CMP #### [facility] [address] [place] [place] [id number] BUN/CREA 21 Ratio Normal 6-22 [facility] Comment on above: Performed By: #### C BCAD, CMP #### [facility] [address] [facility] [address] [facility] [place] [place] [id number] Calcium [Mass/Vol] 9.8 mg/dL Normal 8.6-10.2 [facility] Comment on above: Performed By: #### C BCAD, CMP #### [facility] [address] [facility] [place] [place] [id number] Chloride [Moles/Vol] 102 mmol/L Normal 98-107 [facility] Comment on above: Performed By: #### C BCAD, CMP #### [facility] [address] [place], [place] [id number] CO2 [Moles/Vol] 23 mmol/L Normal 20-31 [facility] Comment on above: Performed By: #### C BCAD, CMP #### [facility] [address] [place], [place] [id number] Creatinine [Mass/Vol] 0.6 mg/dL Normal 0.6-1.4 [facility] Handle And Vent Machine Operator Comment on above: Performed By: #### C BCAD, CMP #### [facility] [address] [place], [place] [id number] eGFRAA 128 mL/min/1.73m2 Normal >60 [facility] Specialist Comment on above: Performed By: #### C BCAD, CMP #### [facility] [address] [place], [place] [id number] eGFRNAA 106 mL/min/1.73m2 Normal >60 [facility] Specialist Comment on above: Performed By: #### C BCAD, CMP #### [facility] [address] [place], [place] [id number] Globulin (S) [Mass/Vol] 2.0 g/dL Normal 1.9-3.7 [facility] Handle And Vent Machine Operator Comment on above: Performed By: #### C BCAD, CMP #### [facility] [address] [place], [place] [id number] Glucose [Mass/Vol] 122 mg/dL High 65-99 [facility] Handle And Vent Machine Operator Comment on above: Result Comment: For FASTING Glucose --- ADA reference ranges: Normal 65-99 mg/dl Prediabetes 100-125 Diabetes >/= 126 Performed By: #### C BCAD, CMP #### [facility] [address] [place], [place] [id number] Potassium [Moles/Vol] 3.2 mmol/L Low 3.5-5.5 [facility] Handle And Vent Machine Operator Comment on above: Performed By: #### C BCAD, CMP #### [facility] [address] [place], [place] [id number] Protein [Mass/Vol] 6.7 g/dL Normal 6.1-8.1 [facility] Handle And Vent Machine Operator Comment on above: Performed By: #### C BCAD, CMP #### [facility] [address] [place], [place] [id number] Sodium [Moles/Vol] 143 mmol/L Normal 135-146 [facility] Comment on above: Performed By: #### C BCAD, CMP #### [facility] [address] [place], [place] [id number] TBIL <0.3 Normal [facility] Specialist Comment on above: Performed By: #### C BCAD, CMP #### [facility] [address] [place], [place] [id number] Urea nitrogen [Mass/Vol] 12 mg/dL Normal 7-25 [facility] Specialist Comment on above: Performed By: #### C BCAD, CMP #### [facility] [address] [place], [place] [id number] Hemoglobin A1Con 10-25-2021 EAG 154.20 Normal [facility] Specialist Comment on above: Performed By: #### A 1C #### [facility] [address] [place], [place] [id number] HbA1c (Bld) [Mass fraction] 7.0 % High 4.0-6.0 [facility] Specialist Comment on above: Performed By: #### A 1C #### [facility] [address] [place], [place] [id number] Vital Signs Date Time Vital Sign Value Performing Clinician Faci lity 10-21-2024 11:35-0500 Body height 167.6 cm Koffi Severino MD Work Phone: [facility] 10-21-2024 11:35-0500 Body mass index (BMI) [Ratio] 33.41 kg/m2 Koffi Severino MD Work Phone: [facility] 10-21-2024 11:35-0500 Body weight 93.89 kg Koffi Severino MD Work Phone: [facility] 10-21-2024 11:35-0500 Diastolic blood pressure 70 mm[Hg] Koffi Severino MD Work Phone: [facility] 10-21-2024 11:35-0500 Heart rate 57 /min Koffi Severino MD Work Phone: [facility] 10-21-2024 11:35-0500 SaO2% (BldA) [Mass fraction] 97 % Koffi Severino MD Work Phone: [facility] 10-21-2024 11:35-0500 Systolic blood pressure 126 mm[Hg] Koffi Severino MD Work Phone: [facility] 07-22-2024 11:31-0400 Body height 167.6 cm Koffi Severino MD Work Phone: [facility] 07-22-2024 11:31-0400 Body mass index (BMI) [Ratio] 34.22 kg/m2 Koffi Severino MD Work Phone: [facility] 07-22-2024 11:31-0400 Body weight 96.16 kg Koffi Severino MD Work Phone: [facility] 07-22-2024 11:31-0400 Diastolic blood pressure 74 mm[Hg] Koffi Severino MD Work Phone: [facility] 07-22-2024 11:31-0400 Heart rate 52 /min Koffi Severino MD Work Phone: [facility] 07-22-2024 11:31-0400 SaO2% (BldA) [Mass fraction] 99 % Koffi Severino MD Work Phone: [facility] 07-22-2024 11:31-0400 Systolic blood pressure 124 mm[Hg] Koffi Severino MD Work Phone: [facility] 07-04-2024 13:32-0400 Body height 167.64 cm MD Koffi Severino Work Phone: [facility] 07-04-2024 13:32-0400 Body mass index (BMI) [Ratio] 34.2 kg/m2 MD Koffi Severino Work Phone: [facility] 07-04-2024 13:32-0400 Body temperature 96.2 [degF] MD Koffi Severino Work Phone: [facility] 07-04-2024 13:32-0400 Body weight 96.33 kg MD Koffi Severino Work Phone: [facility] 07-04-2024 13:32-0400 Diastolic blood pressure 71 mm[Hg] MD Koffi Severino Work Phone: [facility] 07-04-2024 13:32-0400 Heart rate 81 /min MD Koffi Severino Work Phone: [facility] 07-04-2024 13:32-0400 Respiratory rate 18 /min MD Koffi Severino Work Phone: [facility] 07-04-2024 13:32-0400 SaO2% (BldA) [Mass fraction] 96 % MD Koffi Severino Work Phone: [facility] 07-04-2024 13:32-0400 Systolic blood pressure 122 mm[Hg] MD Koffi Severino Work Phone: [facility] 07-02-2024 10:59-0400 Body height 167.6 cm Koffi Severino MD Work Phone: [facility] 07-02-2024 10:59-0400 Body mass index (BMI) [Ratio] 34.22 kg/m2 Koffi Severino MD Work Phone: [facility] 07-02-2024 10:59-0400 Body weight 96.16 kg Koffi Severino MD Work Phone: [facility] 07-02-2024 10:59-0400 Heart rate 65 /min Koffi Severino MD Work Phone: [facility] 07-02-2024 10:59-0400 SaO2% (BldA) [Mass fraction] 99 % Koffi Severino MD Work Phone: [facility] 06-12-2024 14:20-0400 Blood Pressure Location Jak Dixon [facility] 06-12-2024 14:20-0400 Diastolic blood pressure 76 mm[Hg] Jak Dixon [facility] 06-12-2024 14:20-0400 Heart rate 60 /min Jak Dixon [facility] 06-12-2024 14:20-0400 Respiratory rate 18 /min Jak Dixon [facility] 06-12-2024 14:20-0400 SaO2% (BldA) [Mass fraction] 96 % Jak Dixon [facility] 06-12-2024 14:20-0400 Systolic blood pressure 132 mm[Hg] Jak Dixon [facility] 11-23-2023 13:05-0500 Body height 167.64 cm Mona Linkmond Other [employer] Other 11-23-2023 13:05-0500 Body mass index (BMI) [Ratio] 34.28 kg/m2 Mona Linkmond Other [employer] Other 11-23-2023 13:05-0500 Body temperature 99.1 [degF] Mona Linkmond Other [employer] Other 11-23-2023 13:05-0500 Body weight 96.34 kg Mona Linkmond Other [employer] Other 11-23-2023 13:05-0500 Diastolic blood pressure 57 mm[Hg] Mona Katt Other [employer] Other 11-23-2023 13:05-0500 Respiratory rate 18 /min Mona Katt Other [employer] Other 11-23-2023 13:05-0500 SaO2% (BldA) [Mass fraction] 96 % Mona Katt Other [employer] Other 11-23-2023 13:05-0500 Systolic blood pressure 107 mm[Hg] Mona Bolivar Other [employer] Other 08-15-2023 16:25-0400 Body height 167.64 cm Diamond Mayes Other [employer] Other 08-15-2023 16:25-0400 Body mass index (BMI) [Ratio] 32.83 kg/m2 Diamond Mayes Other [employer] Other 08-15-2023 16:25-0400 Body temperature 97.6 [degF] Diamond Mayes Other [employer] Other 08-15-2023 16:25-0400 Body weight 92.26 kg Diamond Mayes Other [employer] Other 08-15-2023 16:25-0400 Diastolic blood pressure 62 mm[Hg] Diamond Mayes Other [employer] Other 08-15-2023 16:25-0400 Respiratory rate 18 /min Diamond Mayes Other [employer] Other 08-15-2023 16:25-0400 SaO2% (BldA) [Mass fraction] 99 % Diamond Mayes Other [employer] Other 08-15-2023 16:25-0400 Systolic blood pressure 115 mm[Hg] Diamond Mayes Other [employer] Other Encounters Encounter Date Encounter Type Care Provider Facility Start: 01-11-2025 End: 01-11-2025 Martin Severino MD Work Phone: [facility] Start: 01-11-2025 End: 01-11-2025 Bamboo flowsshadi Severino MD Work Phone: [facility] Start: 01-11-2025 End: 01-11-2025 ambulatory KOFFI SEVERINO Not Available Start: 11-30-2024 End: 11-30-2024 Bamboo flowsshadi Severino MD Work Phone: [facility] Start: 11-30-2024 End: 11-30-2024 Bamboo flowsshadi Severino MD Work Phone: [facility] Start: 11-30-2024 End: 11-30-2024 Office outpatient visit 15 minutes Koffi Severino MD Work Phone: [facility] Comment on above: Bronchitis (Primary Dx); Acute cough; Cigarette smoker; Polypharmacy Start: 11-30-2024 End: 11-30-2024 ambulatory KOFFI SEVERINO Not Available Start: 10-21-2024 End: 10-21-2024 Bamboo flowsshadi Severino [...] [facility] Start: 07-22-2024 End: 07-22-2024 Bamboo flowsheet Koffi Severino MD Work Phone: [...] 07-04-2024 ambulatory MD Koffi Severino Work Phone: [facility] Work Phone: Start: 07-04-2024 End: 07-04-2024 Patient encounter procedure MD Koffi Severino Work Phone: [facility] Work Phone: Start: 07-02-2024 End: 07-02-2024 Office outpatient visit 15 minutes Koffi Severino MD Work Phone: [facility] Comment on above: Upper respiratory tr act infection, unspecified type (Primary Dx); Acute cough Start: 07-02-2024 End: 07-02-2024 ambulatory KOFFI SEVERINO Not Available Start: 06-17-2024 End: 06-17-2024 ambulatory KOFFI SEVERINO Not Available Start: 06-16-2024 End: 07-08-2024 Pre-admission assessment Jak Dixon [facility] Start: 06-12-2024 End: 06-12-2024 ambulatory KOFFI SEVERINO Facility:[facility] Start: 06-12-2024 End: 06-12-2024 Patient encounter procedure Jak Dixon [facility] Start: 04-22-2024 End: 04-22-2024 ambulatory KOFFI SEVERINO Not Available Start: 04-01-2024 End: 04-01-2024 ambulatory KOFFI SEVERINO Not Available Start: 02-20-2024 End: 02-20-2024 ambulatory KOFFI SEVERINO Not Available Start: 01-30-2024 End: 01-30-2024 ambulatory KOFFI SEVERINO Not Available Start: 01-29-2024 End: 01-29-2024 ambulatory KOFFI SEVERINO Not Available Start: 11-23-2023 End: 11-23-2023 ambulatory Mona Bolivar Other [employer] Other Start: 11-23-2023 Office outpatient visit 15 minutes Mona Bolivar [facility] Start: 08-15-2023 End: 08-15-2023 ambulatory Diamond Mayes Other [employer] Other Start: 08-15-2023 Office outpatient ne w 30 minutes Diamond Mayes [facility] Start: 04-11-2023 End: 04-11-[address] TYRELL LEVINE . Facility: Start: 01-17-2023 End: 01-17-2023 ambulatory Bryan Georges Facility:[facility] Start: 04-27-2022 End: 04-28-[address] KOFFI SEVERINO . Facility: Start: 12-04-2018 End: 12-05-2018 Patient encounter procedure VALARIE BATESSALMA [facility] Procedures Date Procedure Procedure Detail Performing Clinician [...] Dixon Deliveries by karen potter (finding) Jak Dixon Comment on above: x 2 ft (qualifier value) Jak shahid Gallbladder structur e (body structure) Jak Dixon Herniated structure (morphologic abnormality) Jak Dixon Comment on above: umblical Tonsillectomy Jak amaya Plan of Treatment Date Care Activity Detail Author Start: 01-17-2033 Screening for malign ant neoplasm of colon [facility] Start: 01-04-2026 Glaucoma screening Diabetes: R etinopathy Screening [facility] Start: 06-17-2025 Screening for malign ant neoplasm of breast Mammogram [facility] Start: 04-20-2025 Urine screening for protein Diabetes: Urine Protein Screening [facility] Start: 04-15-2025 End: 04-15-2025 Patient encounter procedure [facility] Start: 01-19-2025 End: 10-21-2025 Hemoglobin A1c/Hemoglobin.total in Blood Hemoglobin A1c Lab Routine Type 2 diabetes mellitus with hyperglycemia, without long-term current use of insulin ([facility]) Expected: 01/19/2025 (Approximate), Expires: 10/21/2025 [facility] Work Phone: Comment on above: Expected: 01/19/2025 (Approximate), Expires: 10/21/2025 Start: 01-18-2025 Hemoglobin A1c measurement Diabetes: Hemoglobin A1C [facility] Start: 01-11-2025 End: 01-11-2025 Patient encounter procedure 01/11/2025 11:30 AM EST Office Visit [facility] [address] [place] [address] Koffi Severino MD [address] [place] [address] Arrived [facility] Comment on above: Arrived Start: 11-30-2024 End: 11-30-2024 Patient encounter procedure 11/30/2024 1:45 PM EST Office Visit [facility] [address] [place] [address] Koffi Severino MD [address] [place] [address] (Fax) Arrived [facility] Comment on above: Arrived Start: 10-21-2024 End: 10-21-2024 Patient encounter procedure [facility] Comment on above: Benign essential HTN ([facility]/HCC); Mixed dyslipidemia ([facility]/HCC); Metabolic syndrome; Type 2 diabetes mellitus with hyperglycemia, without long-term current use of insulin ([facility]); Potassium (K) deficiency; Cigarette smoker; Polypharmacy; Non morbid obesity due to excess calories Start: 10-17-2024 Hemoglobin A1c measurement Diabetes: Hemoglobin A1C [facility] Start: 07-22-2024 End: 07-22-2024 Patient encounter procedure [facility] Comment on above: Benign essential HTN (CMS/HCC); Mixed dyslipidemia (CMS/HCC); Type 2 diabetes mellitus with hyperglycemia, without long-term current use of insulin (CMS/HCC); Potassium (K) deficiency; Cigarette smoker; Polypharmacy; Non morbid obesity due to excess calories Start: 07-21-2024 Hemoglobin A1c measurement Diabetes: Hemoglobin A1C [facility] Start: 07-19-2024 Influenza vaccination Influenza Vacc ine (#1) [facility] Start: 11-01-2023 Urine screening for protein Diabetes: Urine Protein Screening [facility] Start: 1965 Screening for malign ant neoplasm of colon [facility] XR Chest [address] [facility] Payers Date Payer Category Payer [facility] BCBS [id number] 2023 Unknown BCBS BCBS xxxxxx [id number] 2023-Present [phone] [address] [place] [address] [id number] 2023 Self-pay 2015 Private Health Insurance [id number] 1966 Unknown [id number] [id number] 1966 Unknown [id number] [id number] 1966 Unknown [id number] [id number] 1966 Unknown [id number] [id number] 1966 Unknown [id number] [id number] 1966 Unknown [id number] [id number] 1966 Unknown [id number] 2.16.840.1.479298.3.579. 2.1258 1965 Unknown [id number] 2.16.840.1.656973.3.579. 2.1258 1965 Unknown [id number] 2.16.840.1.555910.3.579. 2.1258 1965 Unknown [id number] 2.16.840.1.271748.3.579. 2.1258 1966 Unknown [id number] 2.16.840.1.847852.3.579. 2.1258 1966 Unknown [id number] 2.16.840.1.503942.3.579. 2.1258 1966 Unknown [id number] 2.16.840.1.709276.3.579. 2.1258 1966 Unknown [id number] 2.16.840.1.592563.3.579. 2.1258 1966 Unknown [id number] 2.16.840.1.152145.3.579. 2.1258 1966 Unknown [id number] 2.16.840.1.076624.3.579. 2.1258 1959 Unknown [id number] Unknown [facility] [id number] Unknown [id number] 2.16.840.1.496248.3.579. 2.531 Social History Date Type Detail Facility Unknown if ever smoked [facility] Other Start: 05-22-2023 End: 01-29-2024 Sex Assigned At [facility] Tobacco smoking status No Smokin g Status Entered [facility] Start: 1965 Sex Assigned At Female [facility] Start: 04-25-2023 Tobacco smoking status NHIS Smokes tobacco daily [facility] History of tobacco use Cigarette Smoker [facility] Start: 04-25-2023 Tobacco use and exposure Smokeless tobacco non-user [facility] Start: 07-22-2024 End: 10-21-2024 Alcoholic beverage intake [facility]-drinker (finding) [facility] Start: 05-22-2023 End: 01-29-2024 History of Social function [facility] Do you belong to any clubs or organizations such as latter-day groups, unions, fraternal or athletic groups, or [...] To some extent [facility] (I/We) worried eduardo er (my/our) food would run out before (I/we) got money to buy more. Never true [facility] Start: 04-17-2023 Education 13 [facility] Start: 04-17-2023 Tobacco Comment 11-20 cigs/day, thinking about quitting [facility] Start: 04-17-2023 Alcohol Comment 1-2 drinks for 2-4x a month in the past year, Caffeine intake 4 20 oz soda/ day [facility] Start: 1965 Sex assigned at Not on file [facility] Functional Status Date Assessment Result Facility 06-12-2024 Functional Status No [facility] Clinical Notes 08-15-2023 to 11-30-2024 Koffi [...] daily, orally. cholecalciferol (Vitamin D-3) 250 MCG (54706 UT) tablet Take 10,000 Units by mouth [...] evaluation and management. documented in this encounter [facility] 10-21-2024 History of Presen t illness Narrative Images [...] tried the metformin for three days in when she got back from [place] and it made her really ill . [...] daily, orally. cholecalciferol (Vitamin D-3) 250 MCG (74755 UT) tablet Take 10,000 Units by mouth [...] Take before meals. 60 tablet 0 [DISCONTINUED] mrqclybx-cdornxhlo-pyifmbttsfuscy (Cortisporin) 3.5-42384-1 otic suspension Apply 3 drops to affected [...] 180 tablet; Refill: 1 2. Mixed dyslipidemia (CMS/HCC) In prescribing a renewal to their current [...] hyperglycemia, without long-term current use of insulin ([facility]) Chronic problem, unstable, not to goal. We [...] Encouraged lifestyle changes. documented in this encounter [facility] 07-22-2024 History of Presen t illness Narrative [...] change in test platforms from the [employer]itioner to the [employer] armando c503 may have shifted HbA1c results compared to historical results. Based on laboratory validation testing conducted at [facility], the [employer] platform relative to the [employer] [...] daily, orally. cholecalciferol (Vitamin D-3) 250 MCG (44987 UT) tablet Take 10,000 Units by mouth [...] 180 tablet; Refill: 1 2. Mixed dyslipidemia (CMS/HCC) In prescribing a renewal to their current [...] hyperglycemia, without long-term current use of insulin ([facility]) Chronic problem, unstable, not to goal. She [...] the ears. Washcloth on a fingertip. - lkmhpanp-dqlgyrqhl-aurayauzejhugq (Cortisporin) 3.5-95879-6 otic suspension; Apply 3 drops to affected [...] mL; Refill: 12 documented in this encounter [facility] 07-07-2024 History of Presen t illness Narrative [...] have only found at medicine shop in [place]. If you use this do not follow the directions on the box. One tablet 3 times a day is plenty. She could also take some Robitussin DM ( not the other cough cold preparations) right along with the Sudogest. documented in this encounter [facility] 07-02-2024 History of Presen t illness Narrative [...] daily, orally. cholecalciferol (Vitamin D-3) 250 MCG (97319 UT) tablet Take 10,000 Units by mouth [...] mL; Refill: 0 documented in this encounter [facility] 11-23-2023 Evaluation note Encounter Date Diagnosis Assessment [...] exposure to COVID-19 virus (ICD-10 - Z20.822) [facility] Other 09-28-2023 Evaluation note* Encounter Date Diagnosis [...] the next 3-4 days patient may call and I will send antibiotic (Augmentin) to [...] Suspected COVID-19 virus infection (ICD-10 - Z20.822) [facility] Other Evaluation + Plan note Future Appointments Appointment Date:07/27/2024 01:15:00 PM Scheduled Provider:Salvador Gómez PA-C Location:.Cardiology Clinic Appointment Type:Cardiology Follow Up (FT) [facility] Evaluation note* Diagnosis Onset Date Resolution Status Bronchitis acute [facility] Work Phone: [employer] note* Diagnosis Benign essential HTN (CMS/HCC) Mixed dyslipidemia ([facility]) Type 2 diabetes mellitus with hyperglycemia, without long-term current use of insulin ([facility]) Potassium (K) deficiency Hypopotassemia Cigarette smoker Tobacco use disorder Polypharmacy Issue of repeat prescriptions Non morbid obesity due to excess calories documented in this encounter [facility] Healthcare[facility] note* Diagnosis Benign essential HTN (CMS/HCC)- Primary Mixed dyslipidemia (CMS/HCC) Type 2 diabetes mellitus with hyperglycemia, without long-term current use of insulin ([facility]) Cigarette smoker Tobacco use disorder Polypharmacy Issue of repeat prescriptions Non morbid obesity due to excess calories Other infective acute otitis externa of left ear Eustachian tube dysfunction, bilateral documented in this encounter [facility] HealthcareEvaluation note* Diagnosis Upper respiratory tract infection, unspecified type- Primary Acute cough Benign essential HTN (CMS/HCC) Mixed dyslipidemia (CMS/HCC) Type 2 diabetes mellitus with hyperglycemia, without long-term current use of insulin ([facility]/HCC) Potassium (K) deficiency Hypopotassemia Cigarette smoker Tobacco use disorder Polypharmacy Issue of repeat prescriptions Non morbid obesity due to excess calories documented in this encounter [facility] HealthcareEvaluation note* Diagnosis Benign essential HTN (CMS/HCC) documented in this encounter [facility] HealthcareEvaluation note* Diagnosis Bronchitis- Primary Bronchitis, not specified as acute or chronic Acute cough Cigarette smoker Tobacco use disorder Polypharmacy Issue of repeat prescriptions documented in this encounter [facility] HealthcareHistory general Narrative - Reported* Type Description Date Medical History anxiety Medical History high blood pressure Surgical History T & A Surgical History hysterectomy Surgical History cholecystectomy Surgical History C section Surgical History carpal tunnel release Surgical History moved ulnar nerve Hospitalization History See Above [facility] Other History general Narrative - Reported* Type Description Date Medical History anxiety Medical History high blood pressure Medical History BORDER LINE DM TYPE II Medical History PNEUMONIA Surgical History T & A Surgical History hysterectomy Surgical History cholecystectomy Surgical History C section Surgical History carpal tunnel release Surgical History moved ulnar nerve Hospitalization History See Above [facility] Other Hospital course Narrative No data available for this section [facility] Hospital Discharge instructions No data available for this section [facility] Progress note No data available for this section [facility] Summary Purpose Family History No Family History Records Found Relationship Condition Age at Onset Recorded Date/T rosario brother Malignant neoplasm Unknown father Heart disease Unknown Unknown Parkinson's disease Unknown mother Diabetes mellitus Unknown Heart disease Unknown Hypertension Unknown Advance Directives No Advanced Directives Records Found Advance Directive Response Recorded Date/ Time Advance Directives No January 25 023 4:04pm Chief Complaint and Reason for Visit Chief Complaint Sore throat, cough Reason for Visit Bronchitis Additional Source Comments INFORMATION SOURCE (unrecogn ized section and content) DATE CREATED AUTHOR 12/12/2018 Nicole rivera DATE CREATED AUTHOR AUTHOR'S ORGANIZ ATION 07/13/2022 [facility] DATE CREATED AUTHOR AUTHOR'S ORGANIZ ATION 01/18/2023 [facility] DATE CREATED AUTHOR AUTHOR'S ORGANIZ ATION 04/26/2023 [facility] [place] [facility] DATE CREATED AUTHOR AUTHOR'S ORGANIZ ATION 06/25/2024 [facility] DATE CREATED AUTHOR AUTHOR'S ORGANIZ ATION 07/12/2024 [facility] DATE CREATED AUTHOR AUTHOR'S ORGANIZ ATION 10/23/2024 [facility] DATE CREATED AUTHOR AUTHOR'S ORGANIZ ATION 01/12/2025 [facility] d[facility] Specialists EPIC REASON FOR VISIT (unrecogniz [...] Attending Provider Active Start: July 04, 2024 Child Care Coordinator Relationship Specialty Start Date End Date Koffi Severino MD [address] [place] [address] (Fax) PCP - [place] [facility] 02/16/21 Koffi Severino MD [address] [place] [address] (Fax) PCP - General Family Medicine 04/12/23 Child Care Coordinator Relationship Specialty Start Date End Date Koffi Severino MD [address] [place] [address] (Fax) PCP - [place] [facility] 02/16/21 Koffi Severino MD [address] [place] [address] (Fax) PCP - General Family Medicine 04/12/23 Child Care Coordinator Relationship Specialty Start Date End Date Koffi Severino MD [address] [place] [address] (Fax) PCP - [place] [facility] 02/16/21 Koffi Severino MD [address] [place] [address] (Fax) PCP - General Family Medicine 04/12/23 Child Care Coordinator Relationship Specialty Start Date End Date Koffi Severino MD [address] [place], [facility] (Fax) PCP - [place] [facility] 02/16/21 Koffi Severino MD [address] [place], [facility] (Fax) PCP - General Family Medicine 04/12/23 Child Care Coordinator Relationship Specialty Start Date End Date Koffi Severino MD [address] [place] [address] (Fax) PCP - [place] [facility] 02/16/21 Koffi Severino MD [address] [facility] [place], [facility] (Fax) PCP - General Family Medicine 04/12/23 Child Care Coordinator Relationship Specialty Start Date End Date Koffi Severino MD [address] [facility] [place] [address] (Fax) PCP - [place] [facility] 02/16/21 Koffi Severino MD [address] [place] [address] PCP - General Family Medicine 04/12/23 Child Care Coordinator Relationship Specialty Start Date End Date Koffi Severino MD [address] [facility] [place] [place] [address] PCP - [place] [facility] 02/16/21 Koffi Severino MD [address] [facility] [place] [address] PCP - General Family Medicine 04/12/23 Child Care Coordinator Relationship Specialty Start Date End Date Koffi Severino MD [address] [facility] [place] [address] PCP - [facility] 02/16/21 Koffi Severino MD [address] [facility] [place] [address] PCP - General Family Medicine 04/12/23 Goals [...] BE BASED ON THE PRIMARY CLINICAL RECORDS. [facility]. provides no warranty or guarantee of the accuracy or completeness of information in this document.
--- NOTE | 2025-01-16 13:53 | XR_ITS ---
The [address] [address] Patient Name: FRANCESCO JORDAN MRN: [id number] date: 1965 Sex: F Assigned Patient Location: ER Current Patient Location: ER Accession/Order Number: [id number] Exam Date: 01/16/2025 14:52 Report Date: 01/16/2025 14:53 At the request of: TYRELL LEVINE Procedure: XR chest 2V XR chest 2V 01/16/2025 2:29 PM SIGNS AND SYMPTOMS: Cough, left rib pain. PROTOCOL: Frontal and lateral radiographs of the chest COMPARISON: 11/24/2018 FINDINGS: The trachea is midline. The heart and mediastinal structures are within normal limits. The lung parenchyma is clear. The bony thorax is intact. Mild degenerative changes are present in the thoracic spine. There is evidence of prior cholecystectomy. XR/XR chest 2V IMPRESSION: No acute cardiopulmonary pathology. Impression dictated by: Jag Ramirez M.D.01/16/2025 2:53 PM Dictation Location: [place] [address] Electronically authenticated by: [id number] Y Date: 01/16/2025 14:53
--- NOTE | 2025-01-16 15:06 | ED.GENADUL1 ---
HPI HPI - General Adult General Chief complaint: Upper Respiratory Infection Stated complaint: FEVER,CHILLS Time Seen by Provider: 01/16/25 13:37 Source: patient Mode of arrival: walk-in History of Present Illness HPI narrative: cc = cough, possible pneumonia Patient presents with 2 days of flulike symptoms -diffuse muscle aches, fatigue, cough and congestion, subjective fever and temperature changes. The symptoms are compounded by the recent fall and injury to her the rib cage which the patient sustained and was evaluated in the ED about 5 days ago -found to have an acute rib fracture. She continues to have pain with movement of the torso but now the coughing has made this pain worse. She was concerned that she might have a pneumonia. No GI or symptoms. Related Data Home Medications ?Medication ?Instructions ?Recorded ?Confirmed albuterol sulfate 90 mcg/actuation inhalation 01/06/25 aerosol inhaler amlodipine 10 mg tablet mg 01/06/25 gemfibrozil 600 mg tablet mg 01/06/25 lisinopril 40 mg tablet mg 01/06/25 metoprolol tartrate 100 mg tablet mg 01/06/25 spironolactone 25 mg tablet mg 01/06/25 Previous Rx's ?Medication ?Instructions ?Recorded ketorolac 10 mg tablet 10 mg PO TID PRN pain #10 tabs 01/06/25 methocarbamol 750 mg tablet 750 mg PO TID PRN pain #20 tabs 01/06/25 oxycodone-acetaminophen 5 mg-325 1 tab PO Q6H PRN pain 4 days #15 01/06/25 mg tablet (Percocet) tabs glhxyvyzxkqvfwk-edwbgujgvibuaiq-IN 10 ml PO Q6H PRN cold symptoms 01/16/25 2 mg-30 mg-10 mg/5 mL oral syrup #200 mL (Bromfed DM) Allergies Allergy/AdvReac Type Severity Reaction Status Date / Time cefazolin (From Ancef) Allergy Mild Anaphylaxis Verified 01/06/25 16:42 moxifloxacin (From Avelox) Allergy Mild Rash Verified 01/06/25 16:42 sulfamethoxazole (From Allergy Mild Rash Verified 01/06/25 16:42 Bactrim) trimethoprim (From Bactrim) Allergy Mild Rash Verified 01/06/25 16:42 Opioid HPI Opioid Management Most Recent Opioid Data: Last Pain Scale 9 01/06/25 17:03 01/06/25 PFSH PFSH Social History Little interest or pleasure in doing things: not at all Feeling down, depressed, or hopeless: not at all Exam Narrative Exam Narrative: Nurses notes and vital signs reviewed and patient is not hypoxic. afebrile General: Well-appearing and in no apparent distress. Skin: Warm, dry, no pallor noted. No rash. Eye: Pupils are equal, round and EOMI. No scleral icterus. Ears, Nose, Mouth, and Throat: TM are clear, no posterior oropharynx erythema or nasal mucosal hypertrophy, uvula is mid-line Oral mucosa is moist Cardiovascular: Regular Rate and Rhythm without murmur, gallop or rub. Respiratory: No accessory muscle use or respiratory distress. Lungs are clear to auscultation, no wheezing, rales or rhonchi Musculoskeletal: normal ROM, no calf or popliteal tenderness, no lower extremity edema/swelling GI: Abdomen is soft, non-distended. Normal bowel sounds. No tenderness to palpation. No rebound, guarding, or rigidity noted. Neurological: A&O x4. No cranial nerve dysfunction observed. No truncal ataxia. Moves all extremities. Sensation intact. Psychiatric: Cooperative and interactive. Normal mood and affect. Constitutional Vital Signs, click to edit/add: Last Vital Signs Temp 99.8 F 01/16/25 13:29 Pulse 74 01/16/25 13:29 Resp 20 01/16/25 13:29 BP 154/79 H 01/16/25 13:29 Pulse Ox 99 01/16/25 13:29 O2 Del Method Room Air 01/16/25 13:29 Course Vital Signs Vital signs: Vital Signs Temperature 99.8 F 01/16/25 13:29 Pulse Rate 74 01/16/25 13:29 Respiratory Rate 20 01/16/25 13:29 Blood Pressure 154/79 H 01/16/25 13:29 Pulse Oximetry 99 01/16/25 13:29 Oxygen Delivery Method Room Air 01/16/25 13:29 Temperature 99.8 F 01/16/25 13:29 Pulse Rate 74 01/16/25 13:29 Respiratory Rate 20 01/16/25 13:29 Blood Pressure 154/79 H 01/16/25 13:29 Pulse Oximetry 99 01/16/25 13:29 Oxygen Delivery Method Room Air 01/16/25 13:29 Medical Decision Making MDM Narrative Medical decision making narrative: I do not find evidence of acute bacterial infection of the throat or ears. Chest x-ray is negative for acute infiltrate, consolidation or other findings consistent with pneumonia. The patient likely has a viral syndrome, consistent with high numbers of patients we are currently seeing in the emergency department. Some of them tested negative for all viral swabs and therefore we are not currently swabbing all patients who come in. Patient was informed of diagnosis and I agreed to prescribe Bromfed-DM for her cough. Imaging Data Chest x-ray: Radiologist's impression: ITS Impressions Chest X-Ray 01/16/25 13:53 IMPRESSION: No acute cardiopulmonary pathology. Impression dictated by: Jag Ramirez M.D.01/16/2025 2:53 PM Dictation Location: [place] [address] Electronically authenticated by: [id number] Y Date: 01/16/2025 14:53 Discharge Plan Discharge Chief Complaint: Upper Respiratory Infection Clinical Impression: Viral infection, Fracture of rib, Chest wall pain Patient Disposition: Home, Self-Care Time of Disposition Decision: 15:09 Prescriptions / Home Meds: New nrdnnnjfnoxunas-ymjpijhhv-OR [Bromfed DM] 2-30-10 mg/5 mL syrup 10 ml PO Q6H PRN (Reason: cold symptoms) Qty: 200 0RF No Action metoprolol tartrate 100 mg tablet spironolactone 25 mg tablet amlodipine 10 mg tablet gemfibrozil 600 mg tablet albuterol sulfate 90 mcg/actuation HFA aerosol inhaler INHALATION lisinopril 40 mg tablet ketorolac 10 mg tablet 10 mg PO TID PRN (Reason: pain) Qty: 10 0RF oxycodone-acetaminophen [Percocet] 5-325 mg tablet 1 tab PO Q6H PRN (Reason: pain) 4 Days Qty: 15 0RF Rx Instructions: DX: S22.3 methocarbamol 750 mg tablet 750 mg PO TID PRN (Reason: pain) Qty: 20 0RF Print Language: [place] Islander Instructions: Rib Fracture (ED), Viral Syndrome (ED), Chest Wall Pain (ED) Referrals: HOLGER SEVERINO [Primary Care Provider] - 1 week
== END 2025-01-16 15:18 | disposition home or self-care (01) ==
PROVIDERS: Emergency Provider Emergency Medicine; PCP Family Medicine
DX: B34.9 Viral infection, unspecified (principal); R07.89 Other chest pain; S22.39XD Fracture of one rib, unspecified side, subsequent encounter for fracture with routine healing
CPT/HCPCS: 71046; 99283

== ENCOUNTER 2025-09-21 17:36 | Emergency (ER) | payer BC, SELFPAY ==
[2025-09-21 17:44] VITALS: BP 125/70; PULSE 71; TEMP 37.3; O2SAT 95; BMI 30.4
--- NOTE | 2025-09-21 18:32 | XR_ITS ---
[address] [address] Patient Name: FRANCESCO JORDAN MRN: [id number] date: 1965 Sex: F Assigned Patient Location: ED.MAIN Current Patient Location: ED.MAIN Accession/Order Number: [id number] Exam Date: 09/21/2025 18:44 Report Date: 09/21/2025 19:22 At the request of: STACEY REYNOSO DO Procedure: XR chest 2V Plain film chest 2 view HISTORY: Cough COMPARISON: 01/16/2025 FINDINGS: SUPPORT DEVICES: None POSTSURGICAL CHANGES: None HEART: Within normal limits PULMONARY ALAINA: Within normal limits MEDIASTINUM: Unremarkable LUNGS AND PLEURA: No acute lung process, pleural effusion or pneumothorax identified. Minimal left basilar atelectasis/scarring BONY STRUCTURES: Degenerative change ADDITIONAL FINDINGS None XR/XR chest 2V IMPRESSION: No acute process. Impression dictated by: Vinny Pederson M.D. 09/21/2025 7:22 PM [facility] Electron[facility] authenticated by: [id number] Y Date: 09/21/2025 19:22
--- NOTE | 2025-09-21 18:35 | ED_ITS ---
HPI HPI - General Adult General Chief complaint: Upper Respiratory Infection Stated complaint: COUGHING, LEG CRAMPS, SOB, TIRED, Time Seen by Provider: 09/21/25 18:28 Source: patient Mode of arrival: walk-in Limitations: no limitations History of Present Illness HPI narrative: Patient is a very pleasant 60-year-old female with a past medical history of hypertension, high cholesterol, muscle spasms, and COPD. She has a known tobacco abuse history but has been unable to smoke today. She is presenting to the emergency department today because she is having an intractable cough and feels lousy . The patient states her symptoms began Saturday morning, 3 days ago. She states that she had a sore throat on Saturday but that seemed to resolve. She is having pain and discomfort in her maxillary and frontal sinuses. She is not having any neck pain or stiffness. She very occasionally will expectorate something. Patient does have a handheld inhaler at home. But she states that she is unable to mount enough suction to actually make the medication effective. The patient states that she has not had any fever but has been very chilled. She did not get the influenza vaccine because she states sometimes when she gets that she gets sick from it. Patient has not had any rashes. Patient's is at bedside and he has not felt ill. Unknown what makes her symptoms worse. Nothing makes it better. Patient has not taken anything for her cough. Related Data Home Medications ?Medication ?Instructions ?Recorded ?Confirmed albuterol sulfate 90 mcg/actuation inhalation 01/06/25 aerosol inhaler amlodipine 10 mg tablet mg 01/06/25 gemfibrozil 600 mg tablet mg 01/06/25 lisinopril 40 mg tablet mg 01/06/25 metoprolol tartrate 100 mg tablet mg 01/06/25 spironolactone 25 mg tablet mg 01/06/25 Previous Rx's ?Medication ?Instructions ?Recorded ketorolac 10 mg tablet 10 mg PO TID PRN pain #10 ta bs 01/06/25 methocarbamol 750 mg tablet 750 mg PO TID PRN pain #20 tabs 01/06/25 oxycodone-acetaminophen 5 mg-325 1 tab PO Q6H PRN pain 4 days #15 01/06/25 mg tablet (Percocet) tabs gtserweobcwkvku-kluptorsycrsfbe-ZA 10 ml PO Q6H PRN co ld symptoms 01/16/25 2 mg-30 mg-10 mg/5 mL oral syrup #200 mL (Bromfed DM) Allergies Allergy/AdvReac Type Severity Reaction Status Date / Time cefazolin (From Ancef) Allergy Mild Anaphylaxis Verified 09/21/25 17:49 moxifloxacin (From Avelox) Allergy Mild Rash Verified 09/21/25 17:49 sulfamethoxazole (From Allergy Mild Rash Verified 09/21/25 17:49 Bactrim) trimethoprim (From Bactrim) Allergy Mild Rash Verified 09/21/25 17:49 Opioid HPI Opioid Management Most Recent Opioid Data: Last Pain Scale 8 Today, 17:44 Review of Systems ROS Narrative 10 Systems were reviewed, and unless not ed in the HPI, all other systems are reviewed, unremarkable, or noncontributory. PFSH PFS Social History Little interest or pleasure in doing things: not at all Feeling down, depressed, or hopeless: not at all Exam Narrative Exam Narrative: Prior to examining the patient, I have washed with hospital approved and provided Antiseptic Hand Clinic Scheduler and have also applied gloves.? Prior to touching the patient, I asked for consent to examine the patient.? General: Alert and oriented, well nourished, moderate distress with an intractable cough from deep inspiration. Eye: PERRL, EOMI, normal conjunctiva. HENT: Normocephalic, normal hearing, moist oral mucosa, no scleral icterus, positive maxillary and frontal sinus tenderness Neck: Supple, non-tender, no carotid bruits, no JVD, no lymphadenopathy. Lungs: Fuhs and expiratory wheezing throughout the bilateral lung salazar but much worse on the left lung base than anywhere else, non-labored respiration. No rhonchi or rales appreciated. Heart: Normal rate, regular rhythm, no murmur, gallop or edema. Abdomen: Soft, non-tender, non-distended, normal bowel sounds, no masses. Musculoskeletal: Normal range of motion and strength, no tenderness or swelling. Skin: Skin is warm, dry and pink, no rashes or lesions. Neurologic: Awake, alert, and oriented X3, CN II-XII intact. Psychiatric: Cooperative, appropriate mood and affect.? Following the conclusion of the examination, I have washed my hands thoroughly after removing examination gloves. Constitutional Vital Signs, click to edit/add: Last Vital Signs Temp 99.1 F 09/21/25 17:44 Pulse 71 09/21/25 17:44 Resp 16 09/21/25 17:44 BP 125/70 09/21/25 17:44 Pulse Ox 95 09/21/25 17:44 O2 Del Method Room Air 09/21/25 18:26 Course Course Hospital Course: In summary the patient is a pleasant 60-year-old smoker who presents the emergency department for intractable cough, wheezing, and feeling lousy. Patient states her symptoms been going on for 3 days. Vital Signs Vital signs: Vital Signs Temperature 99.1 F 09/21/25 17:44 Pulse Rate 71 09/21/25 17:44 Respiratory Rate 16 09/21/25 17:44 Blood Pressure 125/70 09/21/25 17:44 Pulse Oximetry 95 09/21/25 17:44 Oxygen Delivery Method Room Air 09/21/25 17:44 Temperature 99.1 F 09/21/25 17:44 Pulse Rate 71 09/21/25 17:44 Respiratory Rate 16 09/21/25 17:44 Blood Pressure 125/70 09/21/25 17:44 Pulse Oximetry 95 09/21/25 17:44 Oxygen Delivery Method Room Air 09/21/25 18:26 Medical Decision Making MDM Narrative Medical decision making narrative: In summary the patient is a pleasant 60-year-old smoker who presents the emergency department for intractable cough, wheezing, and feeling lousy. Patient states her symptoms been going on for 3 days. 19:00 I am signing this patient out to my colleague Dr. Melgar. Pending at this time is the results of the DuoNeb treatment and its effectiveness, COVID swab, flu swab, chest x-ray and effectiveness of the cough medication. Differential Diagnosis Differential Diagnosis: Influenza, COVID, pneumonia, COPD, sinusitis Medical Records Medical records reviewed: Yes I reviewed the patient's medical records Lab Data Lab results narrative: Labs are pending Smoking Cessation Patient Acknowledges Need for Cessation: Yes Discharge Plan Discharge Patient Disposition: Still a Patient
[2025-09-21] MEDS: PREDNISONE 20 MG TABLET 40 MG PO (18:48)
[2025-09-21] MEDS: PROMETHAZINE HCL PO (18:53)
[2025-09-21] MEDS: CODEINE PO (18:53)
--- OUTSIDE RECORDS SUMMARY | 2025-09-21 19:05 | XMS_ITS | Patient Health Record ---
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 Role Phone Virginie Ron Unavailable [phone] Jacinta Mendez Unavailable [phone] Allergies Allergen (clinical drug ingredient) Drug/Non Drug Allergy documented on EMR Reaction Allergy Type Onset Date Status moxifloxacin Avelox anaphylaxis Drug Allergy Activesulfamethoxazole / trimethoprimBactrimhivesDrug AllergyActivecefazolin CefazolinUnknownDrug AllergyActive Reason For Referral No Information Medications Medication SIG (Take, Route, Frequency, Duration) Notes Start Date End Date Status Amoxicillin 500 MG 1 capsule Orally every 8 hrs; Duration: 5 days 05/02/2023Not-TakingpredniSONE 10 MGTAKE A TWO DAY TAPER ONCE DAILY 5,5, 4,4, 3,3, 2,2, 1,1, 1/2,1/2 Oral; Duration: 12Not-TakingAmoxicillin 500 MGTake 4 tabs Orally 1 hour before dental appointment; Duration: 2 days5Active Pregabalin 25 MGTITRATE FROM 1 TO 2 CAPSULES BY MOUTH THREE TIMES A DAY Oral; Duration: 30Not-TakingAmoxicillin 500 MG4 capsules Orally One hour prior to dental appointment; Duration: 1 days02/13/2024ctiveTriamterene-HCTZ 75-50 MG take 1 tablet by mouth every morning Oral; Duration: 90Not-TakingAmoxicillin 500 MG1 capsule Orally Three times a day; Duration: 5 days4Active Amoxicillin 500 MG4 capsules Orally One hour prior to dental appointment; Duration: 1 days12/27/2022Not-TakingAmoxicillin 500 MG4 capsules Orally one hour prior to dental appointment; Duration: 1 day(s)Not-TakingGemfibrozil 600 MGtake 1 tablet by mouth twice a day Oral; Duration: 90ActivePotassium Chloride ER 20 MEQOral; Duration: 90ActiveAmoxicillin 500 MGtake 4 capsules by mouth 1 HOUR PRIOR TO APPT Oral; Duration: 1Not-TakingamLODIPine Besylate 10 MGtake 1 tablet by mouth once daily Oral; Duration: 90ActiveAmoxicillin 500 MG1 capsule Orally Three times a day; Duration: 5 days10/22/2023Not-TakingMetoprolol Tartrate 100 MGtake 1 tablet by mouth twice a day with food Oral; Duration: 90ActivetraMADol HCl 50 MGOne tablet every 4-6 hours as needed for pain Orally Every 4-6 hours as needed for pain; Duration: 5 days07/12/2023Not-TakingLisinopril 40 MGtake 1 tablet by mouth once daily Oral; Duration: 90ActivetraMADol HCl 50 MGTake one tablet every 4-6 hours as needed for pain. Orally Every 4-6 hours; Duration: 5 days07/12/2023Not-TakingSpironolactoneActiveAzithromycin 250 MGas directed Orally; Duration: 5 07/12/2023Not-TakingIronActiveAzithromycin 250 MGTake two tabs on day one and one tab daily for the next 4 days Orally; Duration: 5 days06/13/2023Not-TakingNabumetone 750 MGtake 2 tablets by mouth once daily Oral; Duration: 30Not-Taking Social History Tobacco Use: Social History Observation Description Date Details (start date - stop date) Current Smoker NA - NA Sex Assigned At : Social History Observation Description Sex Assigned At Female Tobacco Control (Standard) Question Answer Notes Tobacco use: Current smoker How often do you smoke cigarettes?Every dayHow many cigarettes a day do you smoke?11-20How soon after you wake up do you smoke your first cigarette?31-60 minutesAre you interested in quitting?Ready to quit Problems Problem Type SNOMED Code ICD Code Onset Dates Problem Status W/U Status Risk Notes Problem Tobacco user (747838901) Cigaret te nicotine dependence without complication (F17.210) ActiveconfirmedProblemObese class II (327646373449538)BMI 35.0-35.9,adult (Z68.35)Activeconfirmed Vital Signs Heart Rate 56 /min 04/09/2025 Blood pressure rkvvosopz03 mm Hg04/09/2025Height-cm165.1 cm04/09/2025Weight-kg 97.52 kg04/09/20259016Fxjolj9'5 in04/09/2025lood pressure lfebnaxe424 mm Hg 04/09/20250241Mtviiq795 lbs04/09/2025BMI35.77 kg/m204/09/2025 Encounters Encounter Location Date Provider Diagnosis [facility] [address] [place] [address] [id number] 04/09/2025 Jacinta Mendez BMI 35.0-35.9,adul t Z68.35 ; Dietary counseling Z71.3 ; Exercise counseling Z71.82 ; Cigarette nicotine dependence without complication F17.210 ; Necrosis of pulp K04.1 and Encounter for dental examination and cleaning with abnormal findings Z01.21 [facility] [address] [place] [address] [phone] 04/06/2025 Jacinta Mendez Assessments Encounter Date Diagnosis (ICD Code) Assessment Notes Treatment Notes Treatment Clinical Notes Section Notes 04/09/2025 BMI 35.0-35.9,adult (ICD-10 - Z6 8.35) 04/09/2025Dietary counseling (ICD-10 - Z71.3)04/09/2025Exercise counseling (ICD- 10 - Z71.82)04/09/2025igarette nicotine dependence without complication (ICD-10 - F17.210)Patient provided with [phone] phone line. Patient provided with [phone] phone line. Patient provided with [phone] phone line. 04/09/2025Necrosis of pulp (ICD-10 - K04.1)04/09/2025Encounter for dental examination and cleaning with abnormal findings (ICD-10 - Z01.21) Plan Of Treatment Next Appt Details Provider Name:Jacinta Mendez , 10/12/2025 03:15:00 PM, [address] [place] [address], [phone], Insurance Providers Payer Name Payer Address Payer Phone Subscriber Number Group Number Insured Name Patient Relationship to Insured Coverage Start Date Coverage End Date [facility] Claims [address] [address] [place] [id number] Lula Yo Self - patient is the insured 4
--- OUTSIDE RECORDS SUMMARY | 2025-09-21 19:06 | XMS_ITS | CCD ---
Author Organization [facility] ion Partnership [facility] Care Team Providers Care Straddle Bug Driver Name Role Phone VALARIE WEISS Referring Unavailable HOLGER SEVERINO Primary Care Unavailable Bryan Georges Attending Unavailable Bryan Georges Admitting Unavailable JULIANNA ., DR SANTILLAN Consulting Unavailable HAY ., DR SANTILLAN Attending Unavailable HEMEYER ., DR WREN Primary Care Unavailable HAY ., DR SANTILLAN Admitting Unavailable ASHLY DUNCAN Consulting Unavailable HEMEALAN ., DR WREN Admitting Unavailable HEMEYER ., DR WREN Primary Care Unavailable HEMEYER ., DR WREN Consulting Unavailable HEMEYER ., DR WREN Attending Unavailable LANSING, DR ABRAHAN Mitchell Consulting Unavailable Diamond Mayes Unavailable Mona Bolivar Unavailable HOLGER SEVERINO Primary Care Physician Unavail able HOLGER SEVERINO Referring Unavailable Jak Dixon Attending Jak Kim Admitting MD Holger Lubin Primary Care Provider DERICK Bonner Attending Provider [phone] Holger Severino MD Unavailable Holger Severino MD Primary Care Provider [phone] Holger Severino MD Unavailable Holger Severino MD Primary Care Provider Holger Severino MD Unavailable Holger Severino MD Primary Care Provider [phone] Holger Severino MD Primary Care Provider Diamond Mayes APRN Attending Provider [phone] Diamond Mayes Attending Unavailable Diamond Mayes Admitting Unavailable Holger Severino Primary Care Unavailable Cristel Loja M Admitting Unavailable Holger Severino Primary Care Unavailable Cristel Loja M Attending Unavailable HOLGER SEVERINO J Attending Unavailable HOLGER SEVERINO Attending Unavailable HOLGER SEVERINO Attending Unavailable HOLGER SEVERINO J Attending Unavailable HOLGER SEVERINO J Attending Unavailable HOLGER SEVERINO J Attending Unavailable HOLGER SEVERINO J Attending Unavailable HOLGER SEVERINO Attending Unavailable Allergies Allergy ClassificationReported Allergen(s)Allergy TypeDate of OnsetReaction(s) Facility (2 sources)ceFAZolin; Translations: [Ancef]Drug Fgvvnuw85-28-7606Wpj [facility] Repository (1 source)moxifloxacinDrug Cjarxtg98-22-3049[facility] ([facility] source)Sulfamethoxazole / TrimethoprimDrug Dnpdbsm59-91-6220SrcAv[facility] (20 sources)ceFAZolin; Translations: [cefazolin]Drug Pmsofst77-24-9475Vddigbp (qualifier value)[facility] (20 sources)moxifloxacin; Translations: [moxifloxacin]Drug Ffsjrcj35-11-6202 anaphylaxis, Weal (disorder)[facility] (20 sources)Sulfamethoxazole / Trimethoprim; Translations: [sulfamethoxazole-trimethoprim]Drug Vsazyry40-57-1499mpkou, Weal (disorder) [facility] (1 source)Sulfamethoxazole / Trimethoprim; Translations: [Bactrim]Drug Allergy [facility] Repository (20 sources)Sulfamethoxazole; Translations: [sulfamethoxazole]Drug Allergy 90-53-3520ejheqDwepgveyuMem[facility] (20 sources)Trimethoprim; Translations: [trimethoprim]Drug Wylpmap18-75-4961 [facility] (19 sources)metFORMINDrug Wtuxuxl15-54-8269[facility] (1 source)ceFAZolinDrug Ixfxvtp73-16-2083Ydxtkwfyt[facility] (1 source)moxifloxacinDrug Skhqdbv39-77-0249WupeowdneMarietta Osteopathic Clinic Repository Medications Current Medications MedicationDrug Class(es)DatesSig (Normalized)Sig (Original)Albuterol (20 sources)beta2-Adrenergic AgonistStart: 53-24-5677Ehwnzgybm Sulfate Active 2 INH INHALATION EVERY 4-6 HOURS 6.7 14 July 04, 2024 12:00amStart: 06-12-2024 albuterol Refills(s) 0 Start Date: 06/12/24 Status: OrderedStart: 74-67-9462jsgq 2 puff(s) by inhalation four times daily as neededAlbuterol Sulfate HFA 108 (90 Base) MCG/ACT 2 puffs Inhalation 4 times a day prn Nov, ActiveStart: 51-78-6841qrlckozlt HFA 90 mcg/act inhaler Inhale 2 puffs in the morning and 2 puffs at noon and 2 puffs in the evening and 2 puffs before bedtime. 2 puffs as needed 4 times a day. 06/07/2022 Activealbuterol 0.833 mg/ml / ipratropium bromide 0.167 mg/ml inhalation solution (3 sources)Anticholinergic, beta2-Adrenergic AgonistStart: 01-25-2025 End: 73-19-5431anpttbuwoig-albuterol (Duo-Neb) 0.5-2.5 mg/3 mL nebulizer solution Indications: Wheezing Take 3 mL by nebulization 4 (four) times a day as needed for wheezing 360 mL 01/25/2025 04/29/2025 Discontinued (Non-compliance) Albuterol Sulfate 90 mcg/actuation HFA aerosol inhaler (2 sources)Start: 36-94-3511Zhoweqwtt Sulfate 90 mcg/actuation HFA aerosol inhaler Active 2 INH INHALATION EVERY 4-6 HOURS as needed for shortness of breath or wheezing 6.7 14 July 04, 2024 12:00amALPRAZolam 0.5 mg oral tablet (20 sources)BenzodiazepineStart: 07-32-6243NCSVHTopcn (Xanax) 0.5 MG tablet Indications: Anxiety Take 1 tablet (0.5 mg) by mouth as needed at bedtime for anxiety (anxiety). 30 tablet 04/25/2023 Activeaspirin 81 mg delayed release oral tablet (20 sources)Platelet Aggregation Inhibitor, Nonsteroidal Anti-inflammatory Drug Start: 30-18-0284qpdz 1 tablet by mouth once dailyaspirin 81 mg Oral EC Tab 81 mg = 1 tab(s), Oral, Daily, # 30 tab(s), Refills(s) 0 Start Date: 06/12/24 Status: Orderedtake 1 tablet by mouth three times weeklyaspirin 81 MG EC tablet Take 81 mg by mouth 3 (three) times a week. Activeazelastine hydrochloride 0.137 mg/actuat metered dose nasal spray (20 sources)Histamine-1 Receptor AntagonistStart: 07-22-2024 End: 76-32-1943rhms 1 spray(s) nasal route in the morningazelastine (Astelin) 0.1 % nasal spray Indications: Eustachian tube dysfunction, bilateral Administer 1 spray into each nostril in the morning and 1 spray before bedtime. Use in each nostril as directed. 30 mL 12 07/22/2024 ActiveBlood Glucose Monitoring Suppl (ONE TOUCH ULTRA 2) w/Device kit (2 sources)Start: 35-87-0239Rqmnm Glucose Monitoring Suppl (ONE TOUCH ULTRA 2) w/Device kit Indications: Type 2 diabetes mellitus with hyperglycemia, without long-term current use of insulin (HCC) Take BS when symptomatic, twice daily as needed 1 kit 07/08/2025 Activebrompheniramine maleate 0.4 mg/ml / dextromethorphan hydrobromide 2 mg/ml / pseudoephedrine hydrochloride 6 mg/ml oral solution (4 sources)alpha-Adrenergic Agonist, Uncompetitive C-mpdoqf-D-aspartate Receptor Antagonist, Sigma-1 AgonistStart: 01-16-2025 End: 59-76-8025qyqs 10 mL by mouth every six hours as needed iiejlwioxkkqgux-aqasvabgzvyxxen-OD 30-2-10 MG/5ML syrup Take 10 mL by mouth every 6 (six) hours if needed 01/16/2025 04/29/2025 Discontinued (Therapy completed)Calcium (2 sources)Phosphate Binder, CalciumStart: 40-58-5683luhzhzr (as carbonate) 500 mg oral tablet Refills(s) 0 Start Date: 06/12/24 Status: Orderedcalcium citrate 1040 mg oral tablet (20 sources)take 1 tablet by mouth twice daily in the morningcalcium citrate 1040 MG tablet Take 250 mg by mouth in the morning and 250 mg before bedtime. 1 tablet two times daily, orally. Activecholecalciferol 0.25 mg oral tablet (20 sources)Vitamin Dtake 1 tablet by mouth in the morningcholecalciferol (Vitamin D-3) 250 MCG (09631 UT) tablet Take 10,000 Units by mouth in the morning. ActivediphenhydrAMINE hydrochloride 25 mg oral tablet (1 source)Histamine-1 Receptor Antagonisttake 1 tablet by mouth every twenty- four hoursBenadryl Allergy 25 MG 1 tablet at bedtime as needed Orally Once a day Activeesomeprazole 20 mg delayed release oral capsule (20 sources)Proton Pump Inhibitortake 2 capsules by mouth before mealtime esomeprazole (NexIUM) [address] capsule Take 40 mg by mouth in the morning. Take before meals. Do not open capsule.. ActiveFluocinonide (12 sources)CorticosteroidStart: 84-64-1086tvfhgqjiqunc Top 0.05% Crm 15 gram Refill(s) 0 Start Date: 06/12/24 Status: OrderedStart: 10-30-2023 End: 87-94-5719cwtbsmwawxjp (Lidex) 0.05 % cream Indications: Eczema of both hands Apply topically 2 (two) times aday 60 g 1 10/30/2023 10/29/2024 Active gabapentin 300 mg oral capsule (20 sources)Anti-epileptic AgentStart: 04-01-2024 End: 49-19-3833jhyzekatey (Neurontin) 300 MG capsule Indications: Right sided sciatica Take 1-2 capsules nightly 60 capsule 04/01/2024 04/29/2025 Discontinued (Therapy completed)hydrocortisone 10 mg/ml / neomycin 3.5 mg/ml / polymyxin b 67800 unt/ml otic suspension (6 sources)Aminoglycoside Antibacterial, Polymyxin-class Antibacterial, CorticosteroidStart: 07-22-2024 End: 63-99-5140oeipdjgx-polymyxin-hydrocortisone (Cortisporin) 3.5-22394-8 otic suspension Indications: Infective Otitis Externa Apply 3 drops to affected ear 3 times daily for 7 days 10 mL 07/22/2024 10/21/2024 Discontinued (Therapy completed)magnesium oxide 400 mg oral tablet (20 sources)Start: 08-25-5437hyilgvcmj oxide 400 mg Tab Refills(s) 0 Start Date: 7/26/24 Status: OrderedmetFORMIN hydrochloride 500 mg oral tablet (18 sources)BiguanideStart: 07-22-2024 End: 34-61-7192lcwt 1 tablet by mouth in the morningmetFORMIN (Glucophage) 1000 MG tablet Indications: Type 2 diabetes mellitus with hyperglycemia, without long-term current use of insulin (CMS/HCC) Take 1 tablet (1,000 mg) by mouth in the morning and1 tablet (1,000 mg) in the evening. Take with meals. 60 tablet 07/22/2024 10/21/2024 Discontinued (Therapy completed)Start: 07-22-2024 End: 34-90-6552zabc 1 tablet by mouth in the morningmetFORMIN (Glucophage) 500 MG tablet Indications: Type 2 diabetes mellitus with hyperglycemia, without long-term current use of insulin (CMS/HCC) Take 1 tablet (500 mg) by mouth in the morning and 1 tablet (500 mg) in the evening. Take before meals. 60 tablet 07/22/2024 10/21/2024 Discontinued (Therapy completed)Start: 07-22-2024 End: 33-25-1435mrke 1 tablet by mouth in the morningmetFORMIN (Glucophage) 850 MG tablet Indications: Type 2 diabetes mellitus with hyperglycemia, without long-term current use of insulin (CMS/HCC) Take 1 tablet (850 mg) by mouth in the morning and 1 tablet (850 mg) in the evening. Take before meals. 60 tablet 07/22/2024 10/21/2024 Discontinued (Therapy completed)Nebulizers (Compressor/Nebulizer) misc (3 sources)Start: 01-25-2025 End: 08-09-8354Eoepdxcdfa (Compressor/Nebulizer) misc Indications: Wheezing Use 4 times per day and PRN SOB/wheezing 1 each 01/25/2025 04/29/2025 Discontinued (Med list cleanup)Start: 71-17-2164Dlyoxrepnp (Compressor/Nebulizer) misc Indications: Wheezing Use 4 times per day and PRN SOB/wheezing 1 each 01/25/2025 Activeomeprazole 20 mg delayed release oral capsule (2 sources)Proton Pump InhibitorStart: 06-72-1867qphfxwdhcx 20 mg Cap-DR Refills(s) 0 Start Date: 06/12/24 Status: Orderedpioglitazone 30 mg oral tablet (20 sources)Peroxisome Proliferator Receptor alpha Agonist, Peroxisome Proliferator Receptor gamma Agonist, ThiazolidinedioneStart: 10-21-2024 End: 88-63-8912ulsb 1 tablet by mouth once dailypioglitazone (Actos) 30 MG tablet Indications: Type 2 diabetes mellitus with hyperglycemia, withoutlong- term current use of insulin (HCC) Take 1 tablet (30 mg) by mouth Daily 90 tablet 1 07/08/2025 01/04/2026 Activepotassium chloride 20 meq extended release oral tablet (2 sources)take 1 tablet by mouth every twenty-four hoursPotassium Chloride ER 20 MEQ 1 tablet with food Orally Once a day for 90 days ActivepredniSONE 20 mg oral tablet (1 source)Start: 96-34-5136zttj 1 tablet by mouth every twelve hourspredniSONE 20 MG 1 tablet Orally bid for 5 day(s) Nov, ActivePyrilamine- Dextromethorphan ([place] Dm) 7.5-7.5 mg/5 mL liquid (1 source)Start: 11-15-4046nntn 1 mL by mouth every eight hoursPyrilamine- Dextromethorphan ([place] Dm) 7.5-7.5 mg/5 mL liquid Active 10 ML PO Every 8 hours 150 5 February 04, 2025 12:00amsucralfate 1000 mg oral tablet (20 sources)Aluminum ComplexStart: 06-32-6990enldquoikg 1 g Tab Refills(s) 0 Start Date: 06/12/24 Status: OrderedStart: 28-45-1482mjvzwfcimt (Carafate) 1 g tablet Indications: Gastroesophageal reflux disease without esophagitis Dissolve 1 tablet in 2 oz water. Take 30 minutes before meals 3 times daily and at bedtime 120 vqdtap5010/30/2023 ActivevalACYclovir 1000 mg oral tablet (1 source)Herpesvirus Nucleoside Analog DNA Polymerase Inhibitor, Herpes Simplex Virus Nucleoside Analog DNA Polymerase Inhibitor, Herpes Zoster Virus Nucleoside Analog DNA Polymerase InhibitorStart: 82-93-8789qphe 2 tablets by mouth oncevalACYclovir HCl 1 GM 2 tablet Orally once for 1 days Jul, ActiveVitamin D (2 sources)Start: 55-37-0375Alrfipd D Refills(s) 0 Start Date: 06/12/24 Status: Ordered Completed/Discontinued Medications MedicationDrug Class(es)DatesSig (Normalized)Sig (Original)amLODIPine 10 mg oral tablet (20 sources)Dihydropyridine Calcium Channel BlockerStart: 41-78-8293Xcccajwsln Active MG PO July 04, 2024 12:00amStart: 04-22-2024 End: 41-27-6303tjdg 1 tablet by mouth once dailyamLODIPine (Norvasc) 10 MG tablet Indications: Benign essential HTN Take 1 tablet (10 mg) by mouth Daily 90 tablet 04/15/2025 07/08/2025 Discontinued (Reorder)amLODIPine Besylate 10 MG Oral for 90 Days Activeazithromycin 250 mg oral tablet (8 sources)Macrolide AntimicrobialStart: 07-04-2024 End: 68-12-2698Drskiuondgxm 250 mg tablet Discontinued 0 PO .COMPLEX July 04, 2024 12:00am February 04, 2025 3:05pm For 250 mg dose pack: take 500 mg today (day 1), then 250 mg for 4 days (days 2-5) POStart: 90-85-9089Fmhreqtzoahe Active 0 PO .COMPLEX July 04, 2024 12:00am For 250 mg dose pack: take 500 mg today (day 1), then 250 mg for 4 days (days 2-5) POclarithromycin 500 mg oral tablet (2 sources)Macrolide AntimicrobialStart: 11-30-2024 End: 28-21-3105ipwi 1 tablet by mouth in the morningclarithromycin (Biaxin) 500 MG tablet Indications: Bronchitis Take 1 tablet (500 mg) by mouth in the morning and 1 tablet (500 mg) before bedtime. Do all this for 7 days. 14 tablet 11/30/2024 12/07/2024 Expiredgemfibrozil 600 mg oral tablet (20 sources)Peroxisome Proliferator Receptor alpha AgonistStart: 07-04-2024 Gemfibrozil Active MG PO July 04, 2024 12:00amStart: 04-22-2024 End: 08-52-4893yxjk 1 tablet by mouth in the morninggemfibrozil (Lopid) 600 MG tablet Indications: Mixed dyslipidemia Take 1 tablet (600 mg) by mouth in the morning and 1 tablet (600 mg) before bedtime. 180 tablet 04/15/2025 07/08/2025 Discontinued (Reorder)Gemfibrozil 600 MG 1 tablet 30 minutes before morning and evening meals Orally Twice a day for 90 days Activehomatropine methylbromide 0.3 mg/ml / HYDROcodone bitartrate 1 mg/ml oral solution (9 sources)Opioid Agonist, Cholinergic Muscarinic AgonistStart: 11-30-2024 End: 80-02-5268USYZNpkapha Bit-Homatrop MBr (Hydromet) 5-1.5 MG/5ML solution Indications: Cough Take 5 mL by mouth4 (four) times a day as needed (cough) for up to 7 days 120 mL 11/30/2024 12/07/2024 ExpiredStart: 07-04-2024 End: 92-35-4432Masdwpozhzc-Homatropine 5-1.5 mg/5 mL syrup Discontinued ML PO July 04, 2024 12:00am February 04, 2025 3:13pmStart: 07-02-2024 End: 44-29-9534MBFATxktjyn Bit-Homatrop MBr (Hydromet) 5-1.5 MG/5ML solution Indications: Cough Take 5 mL by mouth4 (four) times a day as needed (cough) for up to 7 days 120 mL 07/02/2024 07/09/2024 Expiredlidocaine 0.05 mg/mg medicated patch (3 sources)Antiarrhythmic, Amide Local AnestheticStart: 01-11-2025 End: 16-99-3112chxva 1 dose transdermal route every twelve hourslidocaine (Lidoderm) 5 % patch Indications: Closed fracture of one rib of left side with routine healing, subsequent encounter Apply 1 patch over 12 hours topically Daily Apply to painful area 12 hours per day, remove for 12 hours. 30 patch 01/11/2025 01/18/2025 Discontinued (Cost of medication)apply 1 dose transdermal route onceLidocaine (HM Lidocaine Patch) 4 % patch Apply 1 patch topically every 12 (twelve) hours if needed (pain) Off for 12 hours Activelisinopril 40 mg oral tablet (20 sources)Angiotensin Converting Enzyme InhibitorStart: 10-21-2024 End: 75-29-0482grzb 1 tablet by mouth once dailylisinopril 40 MG tablet Indications: Benign essential HTN Take 1 tablet (40 mg) by mouth Daily 90 tablet 04/15/2025 07/08/2025 Discontinued (Reorder)Start: 19-27-5310bvrn 1 tablet by mouth once dailylisinopril 40 MG tablet Indications: Benign essential HTN (CMS/HCC) TAKE 1 TABLET BY MOUTH ONCE DAILY SAME TIME EACH DAY 90 tablet 1 07/23/2024 ActiveStart: 78-91-3988Lgdkzcawpx Active MG PO July 04, 2024 12:00amStart: 04-22-2024 End: 52-79-9051Xdnirgnpga 40 mg tablet Active MG PO July 04, 2024 12:00am take 1 tablet by mouth once dailyLisinopril 40 MG take 1 tablet by mouth once daily Oral for 90 Days ActivemethylPREDNISolone 4 mg oral tablet (9 sources)CorticosteroidStart: 07-04-2024 End: 04-54-4090asyz 1 tablet by mouth onceMethylprednisolone (Medrol (Dayo)) 4 mg tablets,dose pack Discontinued 0 PO per package directions July 04, 2024 12:00am February 04, 2025 3:05pm PO PER PKG DIRStart: 08-15-2023 methylPREDNISolone 4 MG as directed Orally for daily dose take half with breakfast, half with dinner for 6 days Jul, Activemetoprolol tartrate 100 mg oral tablet (20 sources)beta-Adrenergic BlockerStart: 44-68-1945Sdleqfooqr Tartrate Active MG PO July 04, 2024 12:00amStart: 04-22-2024 End: 88-55-5008pmlv 1 tablet by mouth in the morningmetoprolol tartrate (Lopressor) 100 MG tablet Indications: Benign essential HTN Take 1 tablet (100 m g) by mouth in the morning and 1 tablet (100 mg) before bedtime. 180 tablet 04/15/2025 07/08/2025 Discontinued (Reorder)take 1 tablet by mouth every twelve hoursMetoprolol Tartrate 100 MG 1 tablet with food Orally Twice a day for 90 days Activespironolactone 25 mg oral tablet (20 sources)Aldosterone AntagonistStart: 26-15-8323Ucarwcwuaiusxk Active MG PO July 04, 2024 12:00amStart: 04-22-2024 End: 14-65-0899lywa 1 tablet by mouth in the morningspironolactone (Aldactone) 25 MG tablet Indications: Benign essential HTN Take 1 tablet (25 mg) by mouth in the morning and 1 tablet (25 mg) before bedtime. 180 tablet 04/15/2025 07/08/2025 Discontinued (Reorder)take 1 tablet by mouth every twenty-four hours Spironolactone 25 MG 1 tablet Orally Once a day for 90 days Active Problems Active Problems Problem ClassificationProblemDateDocumented DateEpisodic/Chronic Administrative/social admission (2 sources)Advance directive discussed with patient; Translations: [Other specified counseling]26-56-3762TgcjtmhaBcjsxpz disorders (20 sources)Panic disorder without agoraphobia; Translations: [Panic disorder [episodic paroxysmal anxiety]]Onset: 115041-38-5108NvivsboPhrnpdh and circulatory congenital anomalies (1 source)Atrial septal defect; Translations: [Atrial septal defect]Onset: 71-11-7592EemoxmtAbzlmjd dysrhythmias (20 sources)Tachycardia-bradycardia; Translations: [Sick sinus syndrome]Onset: 793783-13-5117GkatfzvIwtwkdo obstructive pulmonary disease and bronchiectasis (8 sources)Bronchitis; Translations: [Bronchitis, not specified as acute or chronic]16-10-5340DohmjkboZlmllgnpfl associated with dizziness or vertigo (2 sources)Lightheadedness; Translations: [Dizziness and giddiness]07-24-2025 EpisodicDiabetes mellitus with complications (20 sources)Hyperglycemia due to type 2 diabetes mellitus; Translations: [Type 2 diabetes mellitus with hyperglycemia]Onset: 05-17-2021 Resolved: 029839-62-2463MeyosfxWqgddiyk mellitus without complication (2 sources)Prediabetes; Translations: [Prediabetes]88-65-8439PydbmlkrNmgwjedhg of lipid metabolism (20 sources)Hyperlipidemia, unspecified; Translations: [Dyslipidemia]Onset: 04-18-2017 Resolved: 969633-33-8793ZaabikwR Codes: Struck by; against (1 source)Walked into wall, initial encounter; Translations: [WALKED INTO WALL INITIAL ENCOUNTER]Onset: 75-57-0950FprpyvhjJmpftcmrkc disorders (20 sources)Gastro-esophageal reflux disease without esophagitis; Translations: [Gastroesophageal reflux disease without esophagitis]Onset: ChronicEssential hypertension (20 sources)Essential (primary) hypertension; Translations: [Benign essential hypertension]Onset: 369457-45-8315CuoejapPuywkbfnnizpc congenital anomalies (20 sources)Congenital stricture of urethra; Translations: [Congenital stricture of urethra]Onset: 128922-59-6591KvagjnjEbcfbfl and fatigue (20 sources)Fatigue; Translations: [Chronic fatigue, unspecified]Onset: 289893-50-8715NyqoaewUnwb disorders (20 sources)Severe recurrent major depression without psychotic features; Translations: [Major depressive disorder, recurrent severe without psychotic features]Onset: 238772-77-7487RavngowNfkkelplwrz deficiencies (20 sources)Vitamin D deficiency; Translations: [Vitamin D deficiency, unspecified]Onset: 606197-43-5913PvqqpouOssoh aftercare (1 source)FCI (current) use of aspirin; Translations: [RN FIELD CURRENT USE OF ASPIRIN]Onset: 96-70-8490SxkxvcmbZlwgv aftercare (1 source)Other long term care phlebotomist (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 therapy; Translations: [OTH RN FIELD CURRENT DRUG THERAPY]Onset: 78-50-6405XfymftefGegna circulatory disease (3 sources)Other specified symptoms and signs involving the circulatory and respiratory systems; Translations:[Other symptoms involving respiratory system and chest]Onset: 396647-22-6566DsncwyvuSvjfb connective tissue disease (3 sources)Pain in right hand; Translations: [PAIN IN RIGHT HAND]Onset: 27-36-5588LqemamzbUdkjc ear and sense organ disorders (2 sources)Acute infective otitis externa; Translations: [Other infective otitis externa, left ear]73-58-0357ZqegoelhWzgtn fractures (2 sources)Closed fracture of one rib; Translations: [Fracture of one rib, left side, subsequent encounter forfracture with routine healing]51-19-2359Pngmunrm Other lower respiratory disease (6 sources)Cough; Translations: [Cough]21-81-6710QejkwxkyPuphz lower respiratory disease (2 sources)Cough; Translations: [Acute cough]24-23-7569CmrmifwbZieoo nervous system disorders (20 sources)Piriformis syndrome; Translations: [Lesion of sciatic nerve, unspecified lower limb]Onset: 564191-34-0424JhpaydeCqtgo nutritional; endocrine; and metabolic disorders (20 sources)Metabolic syndrome X; Translations: [Metabolic syndrome]Onset: 201107-86-4336JodhcsePgdzc nutritional; endocrine; and metabolic disorders (20 sources)Obesity caused by energy imbalance; Translations: [Other obesity due to excess calories]Onset: 504201-90-9000HfvcbclGpucq screening for suspected conditions (not mental disorders or infectious disease) (8 sources)Encounter for screening mammogram for malignant neoplasm of breast; Translations: [Patient encounter status]Onset: 57-40-4721MgprepjpCvjfn upper respiratory infections (6 sources)Acute sinusitis, unspecified; Translations: [Acute pharyngitis, unspecified]EpisodicOtitis media and related conditions (2 sources)Dysfunction of bilateral eustachian tubes; Translations: [Unspecified Eustachian tube disorder, bilateral]09-46-8178OpffiipoTbpuhokt codes; unclassified (2 sources)Menopause present; Translations: [Asymptomatic menopausal state] 42-38-0805MeucgerkOmuemph and strains (1 source)Unspecified sprain of right wrist, initial encounter; Translations: [UNSPECIFIED SPRAIN RT WRIST INITIAL]Onset: 10-94-5792ItccrrpiIgnfcslsb-related disorders (20 sources)Nicotine dependence, cigarettes, uncomplicated; Translations: [Cigarette smoker ]Onset: 242451-38-5587KfmqobfVijammidupe injury; contusion (2 sources)Contusion of right hand, initial encounter; Translations: [Abrasion of right hand, initial encounter]Onset: 53-22-4906WdwuwntaBvhljobdt cerebral ischemia (1 source)Transient cerebral ischemic attack, unspecified; Translations: [Transient cerebral ischemic attack,unspecified]Onset: 47-09-9122Cjtviwb Unclassified (1 source)Cough, unspecified; Translations: [Cough, unspecified]Onset: 76-51-5839Lsmou infection (1 source)Herpesviral vesicular dermatitisEpisodic Past or Other Problems Problem ClassificationProblemDateDocumented DateEpisodic/ChronicAbdominal hernia (20 sources)Hiatal hernia; Translations: [Diaphragmatic hernia without obstruction or gangrene]Onset: 673426-31-3153HjtgpidlXrbdl and electrolyte disorders (20 sources)Hypokalemia; Translations: [Hypokalemia]Onset: EpisodicOther aftercare (20 sources)Polypharmacy ; Translations: [Other snf (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 therapy]Onset: 681814-24-1455MiehvkapJgooq bone disease and musculoskeletal deformities (20 sources)Osteopenia; Translations: [Other specified disorders of bone density and structure, unspecified site]Onset: [id number] connective tissue disease (20 sources)Calcaneal spur of left foot; Translations: [Calcaneal spur, left foot]Onset: 707403-98-2112WvpgmicyAynfxvcu codes; unclassified (1 source)Family history of malignant neoplasm of digestive organs; Translations: [FAM HX MALIG NEOPLASM DIGESTIV ORGN]Onset: 07-99-7706Wdsxrygs Unclassified (2 sources)Suspected COVID-19 virus infection Z20.822Unclassified (1 source)Acute cough R05.1Viral infection (1 source)COVID-19 Results Test NameValueInterpretationReference RangeFacilityALBUMIN, RANDOM URINE W/CREATININEon 34-93-3089LXMILOJ, URINE<0.2NormalSee Note:[facility] Comment on above:Result Comment: Reference Range: Reference Range Not establishedPerformed By: #### 496, 99098, 2110, 6517 #### [facility] [address], [address] [place] [address] Triple Drum Operator: Conrado Pace MDALBUMIN/CREATININE RATIO, RANDOM URINENOTE Normal<30Quest DiagnosticsComment on above:Result Comment: NOTE: The urine albumin value is less than 0.2 mg/dL therefore we are unable to calculate excretion and/or creatinine ratio. The ADA defines abnormalities in albumin excretion as follows: Albuminuria Category Result (mg/g creatinine) Normal to Mildly increased <30 Moderately increased 30-299 Severely increased > OR = 300 The ADA recommends that at least two of three specimens collected within a 3-6 month period be abnormal before considering a patient to be within a diagnostic category.Performed By: #### 496, 19879, 7600, 6517 #### [facility] [place] [address] Triple Drum Operator: Conrado Pace MDCreatinine (U) [Mass/Vol]16 mg/oHYfq52-538 [facility] DiagnosticsComment on above:Performed By: #### 496, 04119, 7600, 6517 #### [facility] [place] [address] Triple Drum Operator: Conrado ISSAOMPREHENSIVE METABOLIC PANEL 06-29-2025 Albumin [Mass/Vol]4.5 g/dLNormal3.6-5.1Quest DiagnosticsComment on above: Performed By: #### 496, 67229, 7600, 6517 #### [facility] [place] [address] Triple Drum Operator: Conrado Pace MDAlbumin/Globulin [Mass ratio]2.0 {ratio}Normal 1.0-2.5Quest DiagnosticsComment on above:Performed By: #### 496, 48355, 7600, 6517 #### [facility] of [place] [address] Triple Drum Operator: Conrado Pace MDALP [Catalytic activity/Vol]67 U/WBmvcdy13-798 [facility]osticsComment on above:Performed By: #### 496, 69543, 7600, 6517 #### [facility] of [place] [address] Triple Drum Operator: Conrado Pace MDALT [Catalytic activity/Vol]13 U/LNormal6-29 [facility]osticsComment on above:Performed By: #### 496, 00702, 7600, 6517 #### [facility] of [address], [address] [place] [address] Triple Drum Operator: Conrado Pace MDAST [Catalytic activity/Vol]19 U/JVdycbc08-88 [facility] DiagnosticsComment on above:Performed By: #### 496, 88426, 7600, 6517 #### [facility] of [address], [address] [place] [address] Triple Drum Operator: Conrado Pace MDBilirubin [Mass/Vol]0.4 mg/dLNormal0.2-1.2 [facility] DiagnosticsComment on above:Performed By: #### 496, 16464, 7600, 6517 #### [facility] of [address], [address] [place] [address] Triple Drum Operator: Conrado Pace MDBUN/CREATININE RATIOSEE NOTE:Normal6-22Quest DiagnosticsComment on above:Result Comment: Not Reported: BUN and Creatinine are within reference range.Performed By: #### 496, 69510, 7600, 6517 #### [facility] of [address], [address] [place] [address] Triple Drum Operator: Conrado Pace MDCalcium [Mass/Vol]9.5 mg/dLNormal8.6-10.4Quest DiagnosticsComment on above:Performed By: #### 496, 34542, 7600, 6517 #### [facility] of [address], [address] [place] [address] Triple Drum Operator: Conrado Pace MDChloride [Moles/Vol]104 mmol/ODpyyxd50-402 [facility]osticsComment on above:Performed By: #### 496, 43330, 7600, 6517 #### [facility] of [address], [address] [place] [address] Triple Drum Operator: Conrado Pace MDCO2 [Moles/Vol]25 mmol/TMjrtre84-38Scooc DiagnosticsComment on above:Performed By: #### 496, 59691, 7600, 6517 #### [facility] of [address], [address] [place] [address] Triple Drum Operator: Conrado ISSAreatinine [Mass/Vol]0.81 mg/dLNormal0.50-1.03 [facility]osticsComment on above:Performed By: #### 496, 97532, 7600, 6517 #### [facility] [address], [address] [place] [address] Triple Drum Operator: Conrado Pace MDGFR/1.73 sq M.predicted among non-blacks MDRD (S/P/Bld) [Vol rate/Area]84 mL/min/{1.73_m2}Normal> OR = 60[facility] Comment on above:Performed By: #### 496, 59125, 7600, 6517 #### [facility] [address], [address] [place] [address] Triple Drum Operator: Conrado Pace MDGlobulin (S) [Mass/Vol]2.3 g/dLNormal1.9-3.7 [facility]osticsComment on above:Performed By: #### 496, 21095, 7600, 6517 #### [facility] [place] [address] Triple Drum Operator: Conrado Pace MDGlucose [Mass/Vol]106 mg/rCVctd33-51Lustr DiagnosticsComment on above:Result Comment: Fasting reference interval For someone without known diabetes, a glucose value between 100 and 125 mg/dL is consistent with prediabetes and should be confirmed with a follow-up test.Performed By: #### 496, 38703, 7600, 6517 #### [facility] [place] [address] Triple Drum Operator: Conrado Pace MDPotassium [Moles/Vol]4.7 mmol/LNormal3.5-5.3 [facility]osticsComment on above:Performed By: #### 496, 05744, 7600, 6517 #### [facility] [address], [address] [place] [address] Triple Drum Operator: Conrado Pace MDProtein [Mass/Vol]6.8 g/dLNormal6.1-8.1Quest DiagnosticsComment on above:Performed By: #### 496, 74950, 7600, 6517 #### [facility] [address], [address] [place] [address] Triple Drum Operator: Conrado Pace MDSodium [Moles/Vol]139 mmol/MExyemp889-369Dviyh DiagnosticsComment on above:Performed By: #### 496, 49164, 7600, 6517 #### [facility] [address], [address] [place] [address] Triple Drum Operator: Conrado Pace MDUrea nitrogen [Mass/Vol]18 mg/dLNormal7-25 [facility]osticsComment on above:Performed By: #### 496, 60650, 7599, 6517 #### [facility] [address], [address] [place] [address] Triple Drum Operator: Conrado Pace MDHEMOGLOBIN A1con 06-09-0333TuX4q (Bld) [Mass fraction]7.0 %High<5.7Quest DiagnosticsComment on above:Result Comment: For someone without known diabetes, a [...] hemoglobin A1c for diagnosis of diabetes for children.Performed By: #### 496, 22948, 7600, 6517 #### [facility] [address], [address] [place] [address] Triple Drum Operator: Conrado Pcae MDLIPID PANEL, STANDARDon 64-03-1599Qmeeeiaypdl [Mass/Vol]167 mg/dLNormal<200Quest DiagnosticsComment on above:Performed By: #### 496, 91029, 7600, 6517 #### [facility] [address], [address] [place] [address] Triple Drum Operator: Conrado Pace MDCholesterol in HDL [Mass/Vol]52 mg/dLNormal> OR = 50Quest DiagnosticsComment on above:Performed By: #### 496, 87177, 7600, 6517 #### [facility] [address], [address] [place] [address] Triple Drum Operator: Conrado ISSAholesterol in LDL [Mass/Vol]92 mg/dLNormal [facility]osticsComment on above:Result Comment: Reference range: <100 Desirable range <100 mg/dL for primary prevention; <70 mg/dL for patients with CHD or diabetic patients with > or = 2 CHD risk factors. LDL-C is now calculated using the Lexy calculation, which is a validated novel method providing better accuracy than the Friedewald equation in the estimation of LDL-C. Aba KELLER et al. PERLA. 2013;310(19): 0348-0502 (http://education.[employer].Rebiotix/faq/NGA921)Performed By: #### 496, 86982, 7600, 6517 #### [facility] [address], [address] [place] [address] Triple Drum Operator: Conrado Elizondo.total/Cholesterol in HDL [Mass ratio]3.2 {ratio}Normal<5.0Quest DiagnosticsComment on above:Performed By: #### 496, 27965, 7600, 6517 #### [facility] [address], [address] [place] [address] Triple Drum Operator: Conrado AGUERO HDL KOFBVEULMHC778 mg/dL (calc)Normal<130 [facility]osticsComment on above:Result Comment: For patients with diabetes plus 1 major ASCVD risk factor, treating to a non-HDL-C goal of <100 mg/dL (LDL-C of <70 mg/dL) is considered a therapeutic option.Performed By: #### 496, 26867, 7600, 6517 #### [facility] [address], [address] [place] [address] Triple Drum Operator: Conrado Pace MDTriglyceride [Mass/Vol]132 mg/dLNormal<150 [facility]osticsComment on above:Performed By: #### 496, 77622, 7600, 6517 #### [facility] [address], [address] [place] [address] Triple Drum Operator: Conrado Pace MDHEMOGLOBIN A1con 70-26-1731PiK7o (Bld) [Mass fraction]7.9 %High<5.7Quest DiagnosticsComment on above:Result Comment: For someone without known diabetes, a [...] hemoglobin A1c for diagnosis of diabetes for children.Performed By: #### 496 #### [facility] [address], [address] [place] [address] Triple Drum Operator: Conrado Pace MDNo Panel InformationOrdered By: Diamond Mayes on 72-07-3464Anbua Strep (POC)[facility] ClinicX[facility] Ordered By: Claudy Patiño on 47-65-6553Wzcwt reportGRAND LAKE [facility] [place] [address] XRay Report Signed Patient: Lula Yo MR#: [id number] : 1965 Acct:[id number] Age/Sex: 59 / F ADM Date: 5 Loc: XDUCLY Room: Type: [facility] Attending Dr: Diamond Mayes APRN Copies to: Diamond Mayes APRN~ Ordering Provider: Diamond Mayes APRN Date of Service: 02/04/25 XR/XR chest 2V*: CONGESTION Chest 2 views CLINICAL HISTORY: Cough, fever. COMPARISON: Chest 07/04/2024 FINDINGS: Heart normal size. Lungs are clear. No free air. XR/XR chest 2V* IMPRESSION: NO ACUTE CARDIOPULMONARY ABNORMALITY. Impression dictated by: Claudy Patiño Jr., D.O.02/04/2025 3:58 PM Dictation Location: RADIO-PC-22 Transcribed By: IMELDA 02/04/25 1558 Dictated By: Claudy Patiño Jr, DO 02/04/25 1557 Signed By: 02/04/25 1558 [facility] ClinicXR chest 2V*on 90-73-5137JY chest 2V*[facility] [place] [address] [place] [address] XRay Report Signed Patient: Lula Yo MR#: [id number] 15 : 1965 Acct:[id number] Age/Sex: 59 / F ADM Date: 02/04/25 Loc: XDUCLY Room: Type: [facility] Attending Dr: Diamond Mayes APRN Copies to: Diamond Mayes APRN Ordering Provider: Diamond Mayes APRN Date of Service: 02/04/25 XR/XR chest 2V*: CONGESTION Chest 2 views CLINICAL HISTORY: Cough, fever. COMPARISON: Chest 07/04/2024 FINDINGS: Heart normal size. Lungs are clear. No free air. XR/XR chest 2V* IMPRESSION: NO ACUTE CARDIOPULMONARY ABNORMALITY. Impression dictated by: Claudy Patiño Jr., D.O.02/04/2025 3:58 PM Dictation Location: RADIO-PC-22 Transcribed By: IMELDA 02/04/25 1558 Dictated By: Claudy Patiño Jr, DO 02/04/25 1557 Signed By: 02/04/25 1558[facility] Physician GroupHEMOGLOBIN A1con 10-21-2024 HEMOGLOBIN A1c7.4 % of total HgbHigh<5.7Quest DiagnosticsComment on above:Order Comment: FASTING:NO FASTING: NOResult Comment: For someone without known diabetes, a [...] hemoglobin A1c for diagnosis of diabetes for children.Performed By: #### 496 #### [facility] [address] [facility], [address] [place] [address] Triple Drum Operator: Conrado Chopra Panel InformationOrdered By: Cristel Loja on 45-10-7015Iddqh Strep (POC)[facility] ClinicXR chest 2V*on 93-30-1840GX chest 2V*[facility] [place] [address] [place] [address] XRay Report Signed Patient: Lula Yo MR#: [id number] 15 : 1965 Acct:[id number] Age/Sex: 58 / F ADM Date: 07/04/24 Loc: XDUC Room: Type: [facility] Attending Dr: Cristel Loja [facility] NURSE ANESTHESIA PROGRAM DIRECTOR Copies to: Cristel Loja APRN Ordering Provider: [...] Jag Ramirez M.D.07/04/2024 2:11 PM Dictation Location: [place] [address] Transcribed By: [facility] 07/04/24 1411 Dictated By: Jag Ramirez II, MD 07/04/24 1411 Signed By: 07/04/24 1411[facility] Physician GroupHeart and Vascular Office/Clinic Noteon 92-83-2391Pvsvg and Vascular Office/Clinic NoteHeart and Vascular Office/Clinic Note Chief Complaint New [...] Heme/Lymph: no bleeding tendency, no bruising tendency Allergy/Immunologic: no recurrent infections, no impaired immunity Additional [...] after patient or guardian consented to allow [employer] to record this visit. TANIA import specialist and provider reviewed before signing. TANIA: Romaine Tian. Portions of this record may have been created with voice recognition artificial intelligence software, specifically Anafocus, Long Tail and or WishLink. Substitutions may have occurred due to the [...] and Father. Pacemaker catheter: Mother. Parkinsons disease: Father.Wood County HospitalComment on above: Result Comment: Electronically Signed By: Jak Dixon MD\.br\Date and Time Signed: 06/13/24 10:45 EDT\.br\Electronically Co-Signed By: Sarah Garcia\.br\Date and Time Co-Signed: 06/12/24 16:12 EDTCA HOLTER MONITOR 2-7 DAYSon 11-35[place]28[place] [address] Cardiology Report Signed Patient: LULA YO MR#: [id number] : 1965 Acct:[id number] Age/Sex: 58 / F ADM Date: 04/28/24 Loc: CARD Attending Dr: HOLGER SEVERINO Ordering Physician: HOLGER SEVERINO Date of Service: 04/28/24 Procedure(s): CA holter montior 2-7 days Accession Number(s): [id number] cc: HOLGER SEVERINO [facility] Test Date: 2024-05-11 Pat Name: LULA YO Department: Room: - 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 Tachcardia - max rate of 141 bpm (PSVt) - 13 episodes of PSVT w/ longest duration of 18sec Bradycardia (47% burden) - min rate of 40 bpm - longest episode of sinus bradycardia was 1h 22min 54sec w/ rates between 48-55 bpm. Ventricular ectopy - 92 total, < 1% - 90 PVC - 2 couplets Patient triggered events: none Impression: Predominant rhythm is sinus with average rate of 62 bpm. Fastest rate of 141 bpm (PSVT) and slowest rate of 40 bpm, 47% bradycardia burden. 90 PVC, 2 couplets. Longest duration of PSVT was 18sec. Longest episode of sinus bradycardia was 1h 22min 54sec w/ rates between 48-55 bpm. No atrial fibrillation No pauses or blocks Electronically Signed On 05-13-2024 6:54:21 EDT by JESUS SOUZA Dictated By: Jesus Souza D.O. 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 Tachcardia - max rate of 141 bpm (PSVt) - 13 episodes of PSVT w/ longest duration of 18sec Bradycardia (47% burden) - min rate of 40 bpm - longest episode of sinus bradycardia was 1h 22min 54sec w/ rates between 48-55 bpm. Ventricular ectopy - 92 total, < 1% - 90 PVC - 2 couplets Patient triggered events: none Impression: Predominant rhythm is sinus with average rate of 62 bpm. Fastest rate of 141 bpm (PSVT) and slowest rate of 40 bpm, 47% bradycardia burden. 90 PVC, 2 couplets. Longest duration of PSVT was 18sec. Longest episode of sinus bradycardia was 1h 22min 54sec w/ rates between 48-55 bpm. No atrial fibrillation No pauses or blocks Electronically Signed On 05-13-2024 6:54:21 EDT by JESUS SOUZA Dictated By: Jesus Souza D.O. Signed By: 05/13/24 0654 05/13/24 0654 DD/ 1129 TD/TT: Er Rn: [place] HOLTER MONITOR 2-7 DAYSOrdered By: Radiologist Radiology on 90-93-6015[facility] Work Phone: ca HOLTER MONITOR 2-7 DAYSon 85-21-8133Lhjyutwmo Study observation (narrative)TOSHA HealthcareCOVID/FLU/RSV RT-PCRon 11-23-2023 SARS-CoV-2 (COVID-19) RNA ALYSSA+probe Ql (Unsp spec)PositiveNouvola Other COVID/FLU/RSV RT-PCRNegativeNouvola Other COVID + FLU Quick Testingon 97-48-2704NLHI-CoV-2 (COVID-19) RNA ALYSSA+probe Ql (Unsp spec)NegativeNouvola Other COVID + FLU Quick TestingNegativePlayMaker CRM Other Quick Strepon 08-15-2023S. pyogenes Org specific cx Ql (Throat)NegativeNouvola Other quick StrepPlayMaker CRM Other XR HAND RT MIN 3Von 36-84-9754KX HAND RT MIN 3VEXAM: XR WRIST RT MIN 3 V, XR [...] Electronically authenticated by: ASHLY DUNCAN Date: 2023-04-10 23:[address] [place] [address] 01-17-2023 Specimen: [id number] Received: 01/17/23 Status: HIEU Quan Num: [id number] Spec Type: Surgical Subm Dr: Bryan Georges DO Tissues: A Colon Biopsy (ASCENDING BX) Procedures: HE/Diane, Gross/Micro L4 Age/ Patient Sex Location Account Attending Physician Lula Yo 57/F JAIME [id number] Bryan Georges DO SPEC NUM: [id number] RECD: 01/17/23 STATUS: HIEU QUAN NUM: [id number] FARHAN: 01/17/23- ALEX DR: Bryan Georges DO ENTERED: 01/17/[address]: [facility] SPEC TYPE: Surgical DEPT: S ORDERED: [...] support the above pathologic diagnosis. CPT Codes 39752 Specimen: [id number] Received: 01/17/23 Status: HIEU Quan Num: [id number] Spec Type: Surgical Subm Dr: Bryan Georges DO Tissues: A Colon Biopsy (ASCENDING BX) Procedures: HE/2, Gross/Micro L4 Patient: Lula Yo [id number] (Continued) Signed (signature on file) Agus Estrada MD 01/18/23 [facility] HospitalXR Foot Complete Left*on 63-03-3088HC Foot Complete Left*HISTORY: Medial pain plantar surface FINDINGS: No displaced [...] and signed by Claudy Salinas on 07/10/2022 1445NoalAnaheim Regional Medical Centern Stamford HospitalMG MAMM SCREEN 3D HARJINDER CADon 68-25-9124HQ MAMM SCREEN 3D HARJINDER CADPatient: JULIANLULA Exam Date: 04/27/2022 : 1965 Gender:F Ordering : DR HOLGER SEVERINO . Admission #: [id number] Family : Order #: [id number] CLICK HERE TO VIEW EXAM RADIOLOGY REPORT PROCEDURE: MAMMOGRAM SCREENING 3D BILATERAL CAD COMPARISON: MG MAMM SCREEN HARJINDER W CAD, 11/06/2018. MG MAMM SCREEN 3D HARJINDER CAD, 02/09/2021. INDICATIONS: Screening mammography Calculator Name NCI Breast Cancer Risk Assessment Tool 5 Year Breast Cancer Risk 0.80% Lifetime Breast Cancer Risk 5.50% Personal Breast Cancer No Personal Ovarian Cancer No Treatments None Family Cancers Grandfather-maternal with colon cancer at age 58; Uncle-maternal with colon cancer at age 60; Uncle-paternal with colon cancer at age 58; Mother with skin cancer at age 76; Father with skin cancer at age 78. LOCATION: [facility] BREAST COMPOSITION: Scattered areas fibroglandular density. [...] by: Abrahan Ramos MD on 04/27/2022 at 14:19[facility] - COMPREHENSIVE METABOLIC PANEL W/EGFRon 92-92-4843Jkkwiyd [Mass/Vol]4.5 g/dL Normal3.6-5.1NorthMercy Health St. Vincent Medical CenterComment on above:Order Comment: [facility] performed at: [facility], [address] [place] [address], [address] [place] [address], [id number], Director Oracle: Conrado Pace MD [facility] Collection Date/Time: [facility] Results Received Date/Time: [facility] Reported Date/Time: FASTING: NOPerformed By: #### 496X, 968T, 55256V #### [facility] Default [address] [place] [id number]/Globulin [Mass ratio]2.0 {ratio}Normal1.0-2.5NoSalem City HospitalComment on above:Order Comment: [facility] performed at: [facility], [address] [facility], [address] [place] [address], [address] [place] [address], Director Oracle: Conrado Pace MD [facility] Date/Time: [id number] [facility] Received Date/Time: [id number] [facility] Reported Date/Time: FASTING: NOPerformed By: #### 496X, 968T, 80869M #### [facility] Default [address] [place], [place] [address]UDL [Catalytic activity/Vol]70 U/KFoslji93-760MawtsojmSalem City HospitalComment on above:Order Comment: [facility] performed at: [facility], [address] [place] [address], [address] [place] [address], [address] [place] [address], Director Oracle: Conrado Pace MD [facility] Date/Time: [facility] Results Received Date/Time: [facility] Reported Date/Time: FASTING: NOPerformed By: #### 496X, 968T, 54527D #### [facility] Default [address] [place], [place] [address]ABH [Catalytic activity/Vol]26 U/LNormal6-29NoOhioHealth Mansfield Hospital SpecialistComment on above:Order Comment: [facility] performed at: [facility], [address] [place] [address], [address] [place] [address], [address] [place] [address], Director Oracle: Conrado Pace MD [facility] Date/Time: [facility] Results Received Date/Time: [facility] Reported Date/Time: FASTING: NOPerformed By: #### 496X, 968T, 74707D #### [facility] Default [address] [place], [place] [address]RKN [Catalytic activity/Vol]28 U/JFwfzcr19-59Ndcrkmfu [facility] SpecialistComment on above:Order Comment: [facility] performed at: [facility], [address] [place] [address], [address] [place] [address], [address] [place] [address], Director Oracle: Conrado Pace MD [facility] Date/Time: [id number] [facility] Results Received Date/Time: [facility] Reported Date/Time: FASTING: NOPerformed By: #### 496X, 968T, 47395Y #### [facility] Default [address] [place], [place] [address]Ikqzvzjhy [Mass/Vol]0.5 mg/dLNormal0.2-1.2NorthPremier Health [facility] SpecialistComment on above:Order Comment: [facility] performed at: [facility], [address] [place] , [address] [place] [address], [address] [place] [address], Director Oracle: Conrado Pace MD [facility] Date/Time: [facility] Results Received Date/Time: [facility] Reported Date/Time: FASTING: NOPerformed By: #### 496X, 968T, 70344M #### [facility] Default [address] [place], [place] [address]TTQ/CREA15 NOT APPLICABLENormal6-22NoOhioHealth Mansfield Hospital SpecialistComment on above:Order Comment: [facility] performed at: [facility], [address] [place] [address], [address] [place] [address], [address] [place] [address], Director Oracle: Conrado Pace MD [facility] Date/Time: [facility] Results Received Date/Time: [facility] Reported Date/Time: FASTING: NOPerformed By: #### 496X, 968T, 28597I #### [facility] Default [address] [place], [place] [address]Ecfxpft [Mass/Vol]9.6 mg/dLNormal8.6-10.4[facility] SpecialistComment on above:Order Comment: [facility] performed at: [facility], [address] [place] [address], [address] [place] [address], [address] [place] [address], Director Oracle: Conrado Pace MD [facility] Date/Time: [facility] Results Received Date/Time: [facility] Reported Date/Time: FASTING: NOPerformed By: #### 496X, 968T, 31449G #### [facility] Default [address] [place], [place] [address]Nnfxcocv [Moles/Vol]100 mmol/NHskhjf02-248Uvcupagr [facility] SpecialistComment on above:Order Comment: [facility] performed at: [facility], [address] [facility], [address] [place] [address], [address] [place] [address], Director Oracle: Conrado Pace MD [facility] Date/Time: [facility] Results Received Date/Time: [facility] Reported Date/Time: FASTING: NOPerformed By: #### 496X, 968T, 95648K #### [facility] Default [address] [place], [place] [address]OT4 [Moles/Vol]29 mmol/XQxlzfe53-55Zjeoehuf [place] Medical SpecialistComment on above:Order Comment: [facility] Testing performed at: [facility], [address] [place] [address], [address] [place] [address], [address] [place] [address], Director Oracle: Conrado Pace MD [facility] Collection Date/Time: [facility] Results Received Date/Time: [facility] Reported Date/Time: FASTING: NOPerformed By: #### 496X, 968T, [id number] #### [facility] [address] [place], [place] [address]Msecslzzee [Mass/Vol]0.71 mg/dLNormal0.50-1.05[facility] SpecialistComment on above:Order Comment: [facility] Testing performed at: [facility], [address] [facility], [address] [place] [address], [address] [place] [address], Director Oracle: Conrado Pace MD [facility] Collection Date/Time: [id number] [facility] Results Received Date/Time: [facility] Reported Date/Time: FASTING: NOResult Comment: For patients >49 years of age, the reference limit for Creatinine is approximately 13% higher for people identified as -Scottish.Performed By: #### 496X, 968T, [id number] #### [facility] [address] [place], [place] [address]tQVMPJ ([facility])111 mL/min/1.64u7Aohetc> OR = 60[facility] [place] [facility] SpecialistComment on above:Order Comment: [facility] Testing performed at: [facility], [address] [place] [address], [address] [place] [address], [address] [place] [address], Director Oracle: Conrado Pace MD [facility] Collection Date/Time: [facility] Results Received Date/Time: [facility] Reported Date/Time: FASTING: NOPerformed By: #### 496X, 968T, [id number] #### [facility] Default [address] [place], [place] [address]hZDNZOK (Quest)96 mL/min/1.49s4Fxtyui> OR = 60[facility] SpecialistComment on above:Order Comment: [facility] Testing performed at: [facility], [address] [place] [address], [address] [place] [address], [address] [place] [address], Director Oracle: Conrado Pace MD [facility] Collection Date/Time: [facility] Results Received Date/Time: [facility] Reported Date/Time: FASTING: NOPerformed By: #### 496X, 968T, [id number] #### [facility] Default [address] [place], [place] [address]Hgvefnzx (S) [Mass/Vol]2.3 g/dLNormal1.9-3.7[facility] SpecialistComment on above:Order Comment: [facility] Testing performed at: [facility], [address] [place] [address], [address] [place] [address], [address] [place] [address], Director Oracle: Conrado Pace MD [facility] Collection Date/Time: [id number] [facility] Results Received Date/Time: [facility] Reported Date/Time: FASTING: NOPerformed By: #### 496X, 968T, 80264M #### [facility] Default [address] [place], [place] [address]Majnfwr [Mass/Vol]110 mg/hMGnbyne33-077Wzdpbqcn [facility] SpecialistComment on above:Order Comment: [facility] performed at: [facility], [address] [place] [address], [address] [place] [address], [address] [place] [address], Director Oracle: Conrado Pace MD [facility] Collection Date/Time: [facility] Results Received Date/Time: [facility] Reported Date/Time: FASTING: NOResult Comment: Non-fasting reference interval For someone without known diabetes, a glucose value between 100 and 125 mg/dL is consistent with prediabetes and should be confirmed with a follow-up test.Performed By: #### 496X, 968T, 55346Q #### [facility] Default [address] [place], [place] [address]Lzzbmaplf [Moles/Vol]3.3 mmol/LLow3.5-5.3[facility] SpecialistComment on above:Order Comment: [facility] Testing performed at: [facility], [address] [place] [address], [address] [place] [address], [address] [place] [address], Director Oracle: Conrado Pace MD [facility] Collection Date/Time: [facility] Results Received Date/Time: [facility] Reported Date/Time: FASTING: NOPerformed By: #### 496X, 968T, [id number] #### [facility] Default [address] [place], [place] [address]Joeqwqa [Mass/Vol]6.8 g/dLNormal6.1-8.1[facility] SpecialistComment on above:Order Comment: [facility] Testing performed at: [facility], [address] [place] [address], [address] [place] [address], [address] [place] [address], Director Oracle: Conrado Pace MD [facility] Collection Date/Time: [id number] [facility] Results Received Date/Time: [facility] Reported Date/Time: FASTING: NOPerformed By: #### 496X, 968T, [id number] #### [facility] Default [address] [place], [place] [address]Epioox [Moles/Vol]139 mmol/CEordiq350-217Ywucirhs [place] [facility] SpecialistComment on above:Order Comment: [facility] performed at: [facility], [address] [facility], [address] [place] [address], [address] [place] [address], Director Oracle: Conrado Pace MD [facility] Collection Date/Time: [id number] [facility] Results Received Date/Time: [facility] Reported Date/Time: FASTING: NOPerformed By: #### 496X, 968T, [id number] #### [facility] [address] [place], [place] [address]Nogt nitrogen [Mass/Vol]11 mg/dLNormal7-25[facility] SpecialistComment on above:Order Comment: [facility] Testing performed at: [facility], [address] [facility], [address] [place] [address], [address] [place] [address], Director Oracle: Conrado Pace MD [facility] Collection Date/Time: [id number] [facility] Results Received Date/Time: [facility] Reported Date/Time: FASTING: NOPerformed By: #### 496X, 968T, 15857I #### [facility] [address] [place], [place] [address]U - HEMOGLOBIN A1Con 94-28-4968NYJSAKJIOP A1c6.8 % of total Hgb High<5.7NoOhioHealth [facility]field Hospital SpecialistComment on above:Order Comment: [facility] Testing performed at: [facility], [address] [facility], [address] [place] [address], [address] [place] [address], Director Oracle: Conrado Pace MD [facility] Collection Date/Time: [id number] [facility] Results Received Date/Time: [facility] Reported Date/Time: FASTING: NOResult Comment: For someone without known diabetes, a [...] hemoglobin A1c for diagnosis of diabetes for children.Performed By: #### 496X, 968T, 78184T #### [facility] Default [address] [place] [address] - Lipid Panelon 40-96-8985Rtjrtsbxeav [Mass/Vol]168 mg/dLNormal <200[facility] [place] [facility] SpecialistComment on above:Order Comment: [facility] performed at: [facility], [address] [place] [address], [address] [place] [address], [address] [place] [address], Director Oracle: Conrado Pace MD [facility] Collection Date/Time: [facility] Results Received Date/Time: [facility] Reported Date/Time: FASTING: NOPerformed By: #### 496X, 968T, [id number] #### [facility] Default [address] [place] [address]Bqnldvqbgzv in HDL [Mass/Vol]43 mg/dLLow> OR = 50[facility] SpecialistComment on above:Order Comment: [facility] Testing performed at: [facility], [address] [place] [address], [address] [place] [address], [address] [place] [address], Director Oracle: Conrado Pace MD [facility] Collection Date/Time: [id number] [facility] Results Received Date/Time: [facility] Reported Date/Time: FASTING: NOPerformed By: #### 496X, 968T, 13161B #### [facility] Default [address] [place] [address]Hljiknatqlg in LDL [Mass/Vol]95 mg/dLNormalNortwinslow ind[facility] healthcare centern [facility] SpecialistComment on above:Order Comment: [facility] Testing performed at: [facility], [address] [place] [address], [address] [place] [address], [address] [place] [address], Director Oracle: Conrado Pace MD [facility] Collection Date/Time: [facility] Results Received Date/Time: [facility] Reported Date/Time: FASTING: NOResult Comment: Reference range: <100 Desirable range <100 mg/dL for primary prevention; <70 mg/dL for patients with CHD or diabetic patients with > or = 2 CHD risk factors. LDL-C is now calculated using the Lexy calculation, which is a validated novel method providing better accuracy than the Friedewald equation in the estimation of LDL-C. Aba SS et al. PERLA. 2013;310(19): 5555-8442 (http://education.Matchmove/faq/QDW972)Performed By: #### 496X, 968T, 39644N #### [facility] Default [address] [place], [place] [address]Yudvbnfxakf.total/Cholesterol in HDL [Mass ratio]3.9 {ratio} Normal<5.0[facility] SpecialistComment on above:Order Comment: [facility] Testing performed at: [facility], [address] [place] [address], [address] [place] [address], [phone], Director Oracle: Conrado Pace MD [facility] Collection Date/Time: [facility] Results Received Date/Time: [facility] Reported Date/Time: FASTING: NOPerformed By: #### 496X, 968T, 60986X #### [facility] Default [address] [place], [place] [address]SRQ HDL GQERNGSALYZ438 mg/dL (calc)Normal<130[facility] SpecialistComment on above:Order Comment: [facility] Testing performed at: [facility], [address] [facility], [address] [place] [address], [phone], Director Oracle: Conrado Pace MD [facility] Collection Date/Time: [facility] Results Received Date/Time: [facility] Reported Date/Time: FASTING: NOResult Comment: For patients with diabetes plus 1 major ASCVD risk factor, treating to a non-HDL-C goal of <100 mg/dL (LDL-C of <70 mg/dL) is considered a therapeutic option.Performed By: #### 496X, 968T, 34873K #### [facility] Default [address] [place], [place] [address]Jytnapncpogo [Mass/Vol]199 mg/dLHigh<150NoOhioHealth Mansfield Hospital SpecialistComment on above:Order Comment: [facility] Testing performed at: [facility], [facility], [address] [place] [address], [address] [place] [address], [phone], Director Oracle: Conrado Pace MD [facility] Collection Date/Time: [id number] [facility] Results Received Date/Time: [facility] Reported Date/Time: FASTING: NOPerformed By: #### 496X, 968T, 66963V #### [facility] Default [address] [place], [place] [address]US Ankle Complete Righton 72-06-9758MH Ankle Complete Right HISTORY: Lateral pain Injury less than 24 hours ago FINDINGS: Minimal anterolateral soft tissue swelling. Mild intertarsal arthritis. Very small plantar and achilles calcaneal spurs. No cortical or stress fracture. Normal subtalar joint and Bohler's angle. IMPRESSION: Mild arthritis, no fracture. Report reported and signed by Claudy Salinas on 01/15/2022 1200NoBethesda North HospitalXR Foot Complete Right*on 12-78-8404PH Foot Complete Right*HISTORY: Injury less than 24 hours FINDINGS: Mild soft tissue swelling distal metatarsal region. No cortical or stress fracture. Minimal intertarsal arthritis. IMPRESSION: Minimal intertarsal arthritis, no fracture. Report reported and signed by Claudy Salinas on 01/15/2022 1137NormalNortRiverside Methodist HospitalComplete Blood Count with Auto Diffon 75-15-2135Qtxazajwe (Bld) [#/Vol]0.05 10*3/uLNormal0.00-0.20[facility] SpecialistComment on above:Performed By: #### CBCAD, CMP #### [facility] [address] [place], [place] [address]Mtpmsnudb/100 WBC (Bld)0.7 %[facility] SpecialistComment on above:Performed By: #### CBCAD, CMP #### [facility] [address] [place], [place] [address]Arltqoogblk (Bld) [#/Vol]0.14 10*3/uLNormal0.02-0.50[facility] SpecialistComment on above:Performed By: #### CBCAD, CMP #### [facility] [address] [place], [place] [id number]/100 WBC (Bld)2.1 %CirclevilleNoOhioHealth Mansfield Hospital SpecialistComment on above:Performed By: #### CBCAD, CMP #### [facility] [address] [place], [place] [address]Zufsxtlgmny distribution width (RBC) [Ratio]12.9 %Normal 11.0-15.0[facility] SpecialistComment on above:Performed By: #### CBCAD, CMP #### [facility] [address] [place], [place] [id number] (Bld) [Volume fraction]40.1 %Cxprxj76.0-47.0 [facility] SpecialistComment on above:Performed By: #### CBCAD, CMP #### [facility] [address] [place], [place] [id number] (Bld) [Mass/Vol]13.3 g/jWDlhehu86.6-15.5[facility] SpecialistComment on above:Performed By: #### CBCAD, CMP #### [facility] [address] [place], [place] [address]Dpktqhtptwf (Bld) [#/Vol]2.4 10*3/uLNormal0.9-3.9[facility] SpecialistComment on above:Performed By: #### CBCAD, CMP #### [facility] [address] [place], [place] [id number]/100 WBC (Bld)35.9 %[facility] SpecialistComment on above:Performed By: #### CBCAD, CMP #### [facility] [address] [place], [place] [id number] (RBC) [Entitic mass]30.7 gfDmsium19.0-33.0NoOhioHealth Mansfield Hospital SpecialistComment on above:Performed By: #### CBCAD, CMP #### [facility] [address] [place], [place] [id number] (RBC) [Mass/Vol]33.2 g/kSNcbmcp49.0-36.0NoOhioHealth Mansfield Hospital SpecialistComment on above:Performed By: #### CBCAD, CMP #### [facility] [address] [place], [place] [id number] (RBC) [Entitic vol]93 oCSacffr54-593Fgqttjrw [place] Medical SpecialistComment on above:Performed By: #### CBCAD, CMP #### [facility] [address] [place], [place] [address]Pdmfxymkg (Bld) [#/Vol]0.4 10*3/uLNormal0.2-0.9NoOhioHealth Mansfield Hospital SpecialistComment on above:Performed By: #### CBCAD, CMP #### [facility] [address] [place], [place] [id number]/100 WBC (Bld)6.6 %NormalNoOhioHealth Mansfield Hospital SpecialistComment on above:Performed By: #### CBCAD, CMP #### [facility] [address] [place], [place] [id number] (Bld) [#/Vol]3.6 10*3/uLNormal1.5-7.8[facility]ortVan [facility] Hospital SpecialistComment on above:Performed By: #### CBCAD, CMP #### [facility] [address] [place], [place] [id number]/100 WBC (Bld)54.3 %NormalNoOhioHealth Mansfield Hospital SpecialistComment on above:Performed By: #### CBCAD, CMP #### [facility] [address] [place], [place] [id number] mean volume (Bld) [Entitic vol]10.50 fLNormal 7.50-12.50NortVan [facility] Hospital SpecialistComment on above:Performed By: #### JAVAD, CMP #### [facility] [address] [place], [place] [id number] (Bld) [#/Vol]255 10*3/hJFtwixz566-815Aevhmcmi [place] Medical SpecialistComment on above:Performed By: #### CBCKOTA, CMP #### [facility] [address] [place], [place] [id number] (Bld) [#/Vol]4.33 10*6/uLNormal3.90-5.20[facility]ortVan [facility] SpecialistComment on above:Performed By: #### CBCKOTA, CMP #### [facility] [address] [place], [place] [id number]-SP54.8 xGIpqaoa52.0-50.0NortVan Wert County HospitalHem Marker Comment on above:Performed By: #### CBCKOTA, CMP #### [facility] [address] [place], [place] [id number] (Bld) [#/Vol]6.7 10*3/uLNormal3.8-11.0NoOhioHealth Mansfield Hospital SpecialistComment on above:Performed By: #### CBCKOTA, CMP #### [facility] [address] [place], [place] [id number] Metabolic Panelon 37-48-1269Ewhnpau [Mass/Vol] 4.7 g/dLNormal3.6-5.1NortherMercy Health [facility] SpecialistComment on above:Performed By: #### CBCKOTA, CMP #### [facility] [address] [place], [place] [id number]/Globulin [Mass ratio]2.4 {ratio}Normal1.0-2.5NoOhioHealth Mansfield Hospital SpecialistComment on above:Performed By: #### CBCKOTA, CMP #### [facility] [address] [place], [place] [id number] [Catalytic activity/Vol]73 U/RImzxlx47-849Svywggmi [place] [facility] SpecialistComment on above:Performed By: #### CBCKOTA, CMP #### [facility] [address] [place], [place] [id number] [Catalytic activity/Vol]25 U/LNormal6-33NortVan [facility]ert County Hospital SpecialistComment on above:Result Comment: 10/18/2021 Female reference range changed.Performed By: #### CBCKOTA, CMP #### [facility] [address] [place], [place] [id number] gap [Moles/Vol]22 mmol/DMljs25-19Jrbeuall [place] [facility] SpecialistComment on above:Result Comment: Effective 11/23/2019 reference range changed.Performed By: #### CBCKOTA, CMP #### [facility] [address] [place], [place] [id number] [Catalytic activity/Vol]25 U/LNormal9-34[facility]ortVan [facility] SpecialistComment on above:Performed By: #### CBCKOTA, CMP #### [facility] [address] [place], [place] [id number]/CREA21 RatioNormal6-22NoOhioHealth Mansfield Hospital Specialist Comment on above:Performed By: #### CBCKOTA, CMP #### [facility] [address] [place], [place] [id number] [Mass/Vol]9.8 mg/dLNormal8.6-10.2[facility] SpecialistComment on above:Performed By: #### CBCKOTA, CMP #### [facility] [address] [place], [place] [id number] [Moles/Vol]102 mmol/JFwfufr85-601Vrkxqiyl [place] [facility] SpecialistComment on above:Performed By: #### CBCAD, CMP #### [facility] [address] [facility] [place] [id number] [Moles/Vol]23 mmol/RZpwdte82-81Gxamychs [place] [facility] SpecialistComment on above:Performed By: #### CBCAD, CMP #### [facility] [address] [place], [place] [id number] [Mass/Vol]0.6 mg/dLNormal0.6-1.4[facility]Van [facility] SpecialistComment on above:Performed By: #### CBCKOTA, CMP #### [facility] [address] [place], [place] [id number] mL/min/1.13f1Pwxxzz>60NortVan [facility] Hospital SpecialistComment on above:Performed By: #### CBCKOTA, CMP #### [facility] [address] [place], [place] [id number] mL/min/1.42h7Drzife>60[facility]ortVan [facility] SpecialistComment on above:Performed By: #### CBCKOTA, CMP #### [facility] [address] [place], [place] [id number] (S) [Mass/Vol]2.0 g/dLNormal1.9-3.7NoOhioHealth Mansfield Hospital SpecialistComment on above:Performed By: #### CBCKOTA, CMP #### [facility] [address] [place], [place] [id number] [Mass/Vol]122 mg/hOMoos71-39Iespynqv [place] [facility] SpecialistComment on above:Result Comment: For FASTING Glucose --- ADA reference ranges: Normal 65-99 mg/dl Prediabetes 100-125 Diabetes >/= 126Performed By: #### CBCKOTA, CMP #### [facility] [address] [place], [place] [id number] [Moles/Vol]3.2 mmol/LLow3.5-5.5NortVan [facility] SpecialistComment on above:Performed By: #### CBCKOTA, CMP #### [facility] [address] [place], [place] [id number] [Mass/Vol]6.7 g/dLNormal6.1-8.1[facility] SpecialistComment on above:Performed By: #### CBCKOTA, CMP #### [facility] [address] [place], [place] [id number] [Moles/Vol]143 mmol/KLnxndw985-375Bmgolsmg [place] [facility] SpecialistComment on above:Performed By: #### CBCAD, CMP #### [facility] [address] [place], [place] [id number]<0.3NormalNoOhioHealth Mansfield Hospital SpecialistComment on above:Performed By: #### CBCAD, CMP #### [facility] [address] [place], [place] [id number] nitrogen [Mass/Vol]12 mg/dLNormal7-25[facility] SpecialistComment on above:Performed By: #### CBCAD, CMP #### [facility] [address] [place], [place] [id number] A1Con 56-96-2253QUE896.20NormalNortwinslow indian healthcare centern [facility] SpecialistComment on above:Performed By: #### A1C #### [facility] [address] [place], [place] [id number] (Bld) [Mass fraction]7.0 %High4.0-6.0NortVan [facility]ert County Hospital SpecialistComment on above:Performed By: #### A1C #### [facility] [address] [place], [place] [id number] Vital Signs Date TimeVital SignValuePerforming SrifamrsfDvkdjqzg76-09-3171 14:30-0400Body .6 cmEconchita Severino MD Work Phone: [facility] HospitalFnutbrland67-11-3846 14:30-0400Body mass index (BMI) [Ratio]36.4 kg/j4UwdovqHolger Severino MD Work Phone: 1(320)[facility] [place] [facility] HospitalGijshlzpti63-60-7705 14:30-0400Body .29 kgHolger Severino MD Work Phone: [phone] [place] [facility] HospitalOjysvfelgq97-52-9656 14:30-0400Heart rate76 /min Holger Severino MD Work Phone: 1(401)[facility] [place] [facility] HospitalShgacqmwcp60-32-4602 14:30-7092BeI7% (BldA) [Mass fraction]96 %Holger Severino MD Work Phone: [phone] [place] [facility] HospitalVdgisdpymb57-41-6285 14:03-0400Body hrhytk950.6 Rachael Severino MD Work Phone: 1(502)[address] [place], [place] 3661708-14-2025 14:03-0400Body mass index (BMI) [Ratio]36.64 kg/h1BqqepcHolger Severino MD Work Phone: 1(542)[address] [place], [place] 3661708-14-2025 14:03-0400Body raebtc843.97 kgHolger Severino MD Work Phone: 1(990)[address] [place], [place] 3661708-14-2025 14:03-0400Diastolic blood athtfuwr80 mm[Hg]Holger Severino MD Work Phone: 1(419)[address] [place], [place] 3661708-14-2025 14:03-0400Heart rate65 /min Holger Severino MD Work Phone: 1(472)[address] [place], [place] 3661708-14-2025 14:03-6445RjC4% (BldA) [Mass fraction]96 %Holger Severino MD Work Phone: 1(316)[address] [place], [place] 3661708-14-2025 14:03-0400Systolic blood lqvomgjm184 mm[Hg]Holger Severino MD Work Phone: 1(232)[address] [place], [place] 3661705-29-2025 11:47-0400Body nhmaff304.6 Rachael Severino MD Work Phone: 1(584)[address] [place], [place] 3661705-29-2025 11:47-0400Body mass index (BMI) [Ratio]33.41 kg/p1GxcvyeHolger Severino MD Work Phone: 1(305)[address] [place], [place] 3661705-29-2025 11:47-0400Body cujolq39.89 kgHolger Severino MD Work Phone: 1(934)[address] [place], [place] 3661705-29-2025 11:47-0400Diastolic blood dkeanxzv54 mm[Hg]Holger Severino MD Work Phone: 1(807)[address] [place], [place] [address]Pmxncsfpis96-99-9962 11:47-0400Heart rate56 /min Holger Severino MD Work Phone: 1(365)[facility] [place], [place] [address]Ldjxhfwhgz50-16-6346 11:47-5733KvN2% (BldA) [Mass fraction]98 %Holger Severino MD Work Phone: 1(812)[address] [place], [place] 3661705-29-2025 11:47-0400Systolic blood mm[Hg]Holger Severino MD Work Phone: 1(112)[address] [place], [place] 3661703-20-2025 15:19-0400Body temperature 98.6 [degF]Holger Severino MD Work Phone: 1(186)[address] [place], [place] 9864803-20-2025 15:19-0400 Body xjmajg591.71 kgHolger Severino MD Work Phone: 1(748)[address] [place], [place] 9864803-20-2025 15:19-0400 Diastolic blood qkquezjj42 mm[Hg]Holger Severino MD Work Phone: 1(530)[address] [place], [place] 9864803-20-2025 15:19-0400 Heart rate85 /Sana Severino MD Work Phone: 1(119)[address] [place], [place] 9864803-20-2025 15:19-0400 Respiratory rate16 /Sana Severino MD Work Phone: 1(443)[address] [place], [place] 9864803-20-2025 15:19-0400 SaO2% (BldA) [Mass fraction]95 %Holger Severino MD Work Phone: 1(152)[address] [place], [place] 9864803-20-2025 15:19-0400 Systolic blood eiiixrap848 mm[Hg]Holger Severino MD Work Phone: 1(798)[address] [place], [place] 9864812-04-2024 11:35-0500 Body .6 cmEconchita Severino MD Work Phone: 1(104)[address] [place], [place] 3661712-04-2024 11:35-0500Body mass index (BMI) [Ratio]33.41 kg/z7IthvlhHolger Severino MD Work Phone: 1(069)[address] [place], [place] 3661712-04-2024 11:35-0500Body wpsfda12.89 kgHolger Severino MD Work Phone: 1(672)[address] [place], [place] 3661712-04-2024 11:35-0500Diastolic blood sgxoadae55 mm[Hg]Holger Severino MD Work Phone: 1(875)[facility]-[address] [place], [place] [address]Htgzauyihn66-40-6750 11:35-0500Heart rate57 /min Holger Severino MD Work Phone: 1(706)[address] [place], [place] 3661712-04-2024 11:35-6019KpP6% (BldA) [Mass fraction]97 %Holger Severino MD Work Phone: 1(799)[address] [place], [place] 3661712-04-2024 11:35-0500Systolic blood zowubikj471 mm[Hg]Holger Severino MD Work Phone: 1(380)[address] [place], [place] 3661709-04-2024 11:31-0400Body .6 cmEconchita Severino MD Work Phone: 1(407)[address] [place], [place] 3661709-04-2024 11:31-0400Body mass index (BMI) [Ratio]34.22 kg/r9CgqhnmHolger Severino MD Work Phone: 1(421)[address] [place], [place] 3661709-04-2024 11:31-0400Body pltkli28.16 kgHolger Severino MD Work Phone: 1(216)[facility] [place], [place] [address]Zmgvjntxer93-97-3201 11:31-0400Diastolic blood ijyortfa97 mm[Hg]Holger Severino MD Work Phone: 1(162)[address] [place], [place] 3661709-04-2024 11:31-0400Heart rate52 /min Holger Severino MD Work Phone: 1([phone])[address] [place], [place] 3661709-04-2024 11:31-2081BbA6% (BldA) [Mass fraction]99 %Holger Severino MD Work Phone: 1(676)[facility] [place], [place] [address]Xzgkfxlbcm06-46-7711 11:31-0400Systolic blood uvyvmscm271 mm[Hg]Holger Severino MD Work Phone: 1(468)[address] [place], [place] 3661708-17-2024 13:32-0400Body mkqzur117.64 cmMD Holger Severino Work Phone: [facility]08-17-2024 13:32-0400 Body mass index (BMI) [Ratio]34.2 kg/m2MD Holger Severino Work Phone: 1(813)[facility] [place], [place] [address]1108-17-2024 13:32-0400 Body eypmppcdfms20.2 [degF]MD Holger Severino Work Phone: 1([phone] [place], [place] 9864808-17-2024 13:32-0400 Body .33 kgMD Holger Severino Work Phone: 1(572)[address] [place], [place] 9864808-17-2024 13:32-0400 Diastolic blood ihupcquz48 mm[Hg]MD Holger Severino Work Phone: 1(891)[address] [place], [place] 9864808-17-2024 13:32-0400 Heart rate81 /minMD Holger Severino Work Phone: 1(648)[address] [place], [place] 9864808-17-2024 13:32-0400 Respiratory rate18 /minMD Holger Severino Work Phone: 1(128)[address] [place], [place] 9864808-17-2024 13:32-0400 SaO2% (BldA) [Mass fraction]96 %MD Holger Severino Work Phone: 1(400)[address] [place], [place] 9864808-17-2024 13:32-0400 Systolic blood gcrtjokq536 mm[Hg]MD Holger Severino Work Phone: 1(868)[address] [place], [place] 9864808-15-2024 10:59-0400 Body .6 cmEconchita Severino MD Work Phone: 1(193)[address] [place], [place] 3661708-15-2024 10:59-0400Body mass index (BMI) [Ratio]34.22 kg/v4IwefejHolger Severino MD Work Phone: 1(810)[facility]7530[facility] HospitalGnvmnnvnpj12-31-4808 10:59-0400Body ywhama77.16 kgHolger Severino MD Work Phone: 1(425)[address] [place], [place] 3661708-15-2024 10:59-0400Heart rate65 /min Holger Severino MD Work Phone: 1(271)[facility] [place], [place] [address]Hnplsbgvrf40-91-7000 10:59-7839QoC4% (BldA) [Mass fraction]99 %Holger Severino MD Work Phone: [facility] HospitalRsldehwale51-15-4862 14:20-0400Blood Pressure LocationJak Dixon [facility]07-26-2024 14:20-0400 Diastolic blood lcytgzhz35 mm[Hg]Jak Dixon [facility]07-26-2024 14:20-0400Heart rate60 /minJak [facility]07-26-2024 14:20-0400 Respiratory rate18 /minJak [facility]07-26-2024 14:20-1518PqX2% (BldA) [Mass fraction]96 %Jak Zack [facility]07-26-2024 14:20-0400 Systolic blood jyfjghtq686 mm[Hg]Jak Dixon [facility]01-06-2024 13:05-0500Body .64 cmPestella Bolivar Other [facility] [employer] Other 01-06-2024 13:05-0500Body mass index (BMI) [Ratio] 34.28 kg/w8RhyamjMona Bolivar Other [facility] [employer] Other 01-06-2024 13:05-0500Body tdlwjfqrmiz05.1 [degF]Mona Bolivar Other [place] [employer] Other 01-06-2024 13:05-0500Body ueytjq92.34 kgMona Bolivar Other [place] [employer] Other 01-06-2024 13:05-0500Diastolic blood mm[Hg] Mona Bolivar Other [employer] Other 01-06-2024 13:05-0500Respiratory rate18 /minPamagdiel Bolivar Other [employer] Other 01-06-2024 13:05-6835YfF1% (BldA) [Mass fraction]96 % Mona Bolivar Other [employer] Other 01-06-2024 13:05-0500Systolic blood zqiuguul029 mm[Hg] Mona Bolivar Other [employer] Other 09-28-2023 16:25-0400Body jctiev026.64 cmAmbrené Mayse Other [employer] Other 09-28-2023 16:25-0400Body mass index (BMI) [Ratio] 32.83 kg/r3JadicDiamond Mayes Other [employer] Other 09-28-2023 16:25-0400Body tebxfxgbozf79.6 [degF]Diamond Mayes Other [employer] Other 09-28-2023 16:25-0400Body rbyuhe55.26 kgDiamond Mayes Other [employer] Other 09-28-2023 16:25-0400Diastolic blood hndeyrqj47 mm[Hg] Diamond Mayes Other [employer] Other 09-28-2023 16:25-0400Respiratory rate18 /minDiamond Mayes Other [place] [employer] Other 09-28-2023 16:25-1646UxV8% (BldA) [Mass fraction]99 % Diamond Gerber Other [employer] Other 09-28-2023 16:25-0400Systolic blood gazeptme077 mm[Hg] Diamond Gerber Other [employer] Other Encounters Encounter DateEncounter TypeCare ProviderFacilityStart: 07-08-2025 End: 81-27-7048Etukwo outpatient visit 25 minutesEdmera Severino MD Work Phone: [facility] 100 Family MedicineComment on above:Benign essential HTN ; Mixed dyslipidemia ; Metabolic syndrome; Type 2 diabetes mellitus with hyperglycemia, without long-term current use of insulin (HCC); Potassium (K) deficiency; Non morbid obesity due to excess calories; Polypharmacy; Cigarette smokerStart: 07-08-2025 End: 99-18-2451qirlctosaqLFWXNP J HEMEYERNot AvailableStart: 07-08-2025 End: 60-56-6745Awwqae flowsIrlanda Severino MD Work Phone: [facility] [place] 100 Family MedicineStart: 07-08-2025 End: 15-22-7153Bbbcirclarisa Severino MD Work Phone: [facility] [place] 100 Family MedicineStart: 07-01-2025 End: 67-30-5110Kbgorx flowsIrlanda Severino MD Work Phone: [facility] [place] 100 Family MedicineStart: 07-01-2025 End: 91-24-2783Egkqenclarisa Severino MD Work Phone: [facility] [place] 100 Family MedicineStart: 07-01-2025 End: 34-43-9407Zkxpaxd encounter statusHolger Severino MD Work Phone: [facility] Work Phone: Start: 07-01-2025 End: 16-71-1899Vlaluplb preventive med est patient 40-64yrsEdmera Severino MD Work Phone: noms [address] Young StreetComment on above: Encounter for wellness examination in adult (Primary Dx); Advance directive discussed with patient; Screening mammogram, encounter for; Screening for osteoporosis; Menopause; Osteopenia of multiple sites; History of hysterectomy; H/O bilateral oophorectomy; Non morbid obesity due to excess calories; Episodic lightheadednessStart: 07-01-2025 End: 32-87-8558sllmjsqgnbAECHNQ J HEMEYERNot AvailableStart: 04-15-2025 End: 32-89-7886Lnrffk flowsheetHolger Severino MD Work Phone: [facility] CI FM 100Start: 04-15-2025 End: 55-21-9495Fpbjmr flowsheetHolger Severino MD Work Phone: NOXM CI FM 100Start: 04-15-2025 End: 09-57-6607Bklekp outpatient visit 25 minutesEdmera Severnio MD Work Phone: noms CI FM 100Comment on above:Benign essential HTN ; Type 2 diabetes mellitus with hyperglycemia, without long-term current use of insulin (HCC); Potassium (K) deficiency; Mixed dyslipidemia ; Metabolic syndrome; Cigarette smoker; Non morbid obesity due to excess caloriesStart: 04-15-2025 End: 60-84-9573mzvvxjniquBYVDLN J HEMEYERNot AvailableStart: 02-04-2025 End: 64-43-3698xsugzmcjbqCaaztg J Hemeyer MD Work Phone: [facility] Work Phone: Start: 02-04-2025 End: 75-52-4262Usxzvos encounter procedureHolger Severino MD Work Phone: [facility] [place] Work Phone: Start: 01-25-2025 End: 48-09-4213Wmabaz Rosa Severino MD Work Phone: [facility] CI FM 100Start: 01-25-2025 End: 75-10-9120Lshvsk Rosa Severino MD Work Phone: [phone] CI FM 100Start: 01-25-2025 End: 39-42-3309szitgxmqkjZSZZEU J HEMEYERNot AvailableStart: 01-11-2025 End: 84-86-6765Wbdhbf flowsIrlanda Severino MD Work Phone: [phone] CI FM 100Start: 01-11-2025 End: 95-40-2062Cvsyly Rosa Severino MD Work Phone: [facility] CI FM 100Start: 01-11-2025 End: 68-12-6262Rgwipd outpatient visit 15 minutesEdmera Severino MD Work Phone: [facility] CI FM 100Comment on above:Closed fracture of one rib of left side with routine healing, subsequent encounter (Primary Dx)Start: 01-11-2025 End: 19-19-1049jvumxyyanyLRHFSMTodd Lopez AvailableStart: 11-30-2024 End: 80-36-6652Ckkkug Rosa Severino MD Work Phone: [facility] CI FM 100Start: 11-30-2024 End: 53-60-8136Eccudj Rosa Severino MD Work Phone: [facility] CI FM 100Start: 11-30-2024 End: 58-60-8297Cvjpbe outpatient visit 15 minutesHolger Severino MD Work Phone: [facility] CI FM 100Comment on above:Bronchitis (Primary Dx); Acute cough; Cigarette smoker; PolypharmacyStart: 11-30-2024 End: 06-97-0134slgpjrzyqpKLOVWM J HEMEYERNot AvailableStart: 10-21-2024 End: 38-90-6158Roedcdclarisa Severino MD Work Phone: [facility] CI FM 100Start: 10-21-2024 End: 85-87-8133Thrljx Rosa Severino MD Work Phone: [facility] CI FM 100Start: 10-21-2024 End: 58-52-1764Emnzxq outpatient visit 25 minutesHolger Severino MD Work Phone: [facility] CI FM 100Comment on above:Benign essential HTN (CMS/HCC); Mixed dyslipidemia (CMS/HCC); Type 2 diabetes mellitus with hyperglycemia, without long-term current use of insulin (CMS/HCC); Potassium (K) deficiency; Cigarette smoker; Polypharmacy; Non morbid obesity due to excess caloriesStart: 10-21-2024 End: 71-10-7875bpfsdmqkbnUQOUMD J HEMEYERNot AvailableStart: 07-22-2024 End: 76-10-6383Uqjcfe Rosa Severino MD Work Phone: [facility] CI FM 100Start: 07-22-2024 End: 76-42-9565Hcglro Rosa Severino MD Work Phone: [facility] CI FM 100Start: 07-22-2024 End: 15-82-0023TpssasWmmxuj J Hemeyer MD Work Phone: [facility] CI FM 100Comment on above:Benign essential HTN (CMS/HCC)Start: 07-22-2024 End: 11-95-3781Tivltp outpatient visit 25 minutesHolger Severino MD Work Phone: [phone] CI FM 100Comment on above:Benign essential HTN (CMS/HCC) (Primary Dx); Mixed dyslipidemia (CMS/HCC); Type 2 diabetes mellitus with hyperglycemia, without long-term current use of insulin (CMS/HCC); Cigarette smoker; Polypharmacy; Non morbid obesity due to excess calories; Other infective acute otitis externa of left ear; Eustachian tube dysfunction, bilateralStart: 07-22-2024 End: 09-75-7758weksomkpkmPIFVPK J HEMEYERNot AvailableStart: 07-07-2024 End: 20-89-9737Nzbawr OnlyHolger Severino MD Work Phone: [facility] CI FM 100Start: 07-04-2024 End: 34-02-8568crxoevqmtkKK Holger Severino Work Phone: [facility] Work Phone: Start: 07-04-2024 End: 58-52-2261Evkcuah encounter procedureMD Holger Severino Work Phone: [facility] [place] Work Phone: Start: 07-02-2024 End: 71-99-7819Dhzrqp outpatient visit 15 minutesHolger Severino MD Work Phone: noms CI FM 100Comment on above:Upper respiratory tract infection, unspecified type (Primary Dx); Acute coughStart: 06-16-2024 End: 81-34-8519Uug-admission assessmentJak Dixon [facility] Start: 06-12-2024 End: 96-41-3866ulofdyrjlfFNBYJE J HEMEYERFacility:FTMCStart: 06-12-2024 End: 82-19-1419Icknbca encounter Supriya Dixon [facility] Start: 05-11-2024 End: 97-07-5544Vpgdpsgeo Result Thierno Severino MD Work Phone: NOVO External Department UnsolicitedStart: 05-11-2024 End: 98-24-4338Riuwxzjhk Result Thierno Severino MD Work Phone: noms External Department UnsolicitedStart: 11-23-2023 End: 18-36-4186uvjpwbjnmaNsvkvu Dymond Other [place] [employer] Other Start: 90-14-7477Gdbnzn outpatient visit 15 minutes Mona BolivarFPG Urgent Care ClydeStart: 08-15-2023 End: 58-84-2213dzjhqqgkqsXvend Keller Other [place] [employer] Other Start: 98-08-3239Gwidfr outpatient new 30 minutesDiamond MayesFPG Urgent Care ClydeStart: 04-11-2023 End: 81-49-6863nohsixukrcCC TYRELL LEVINE .Facility:C5Txjhg: 01-17-2023 End: 89-47-7722xdvshfwpmuLder LaffayFacility:[facility] Start: 04-27-2022 End: 24-93-6297jzcegyapblEP EDWARD HEMEYER .Facility:F8Inqnv: 12-04-2018 End: 50-79-3594Vrjgfdn encounter procedureGREG S [facility] Procedures DateProcedureProcedure DetailPerforming ClinicianStart: 12-94-1289Pmbcm Strep (POC)Holger Severino MD Work Phone: Start: 65-05-1911Bpzaj chest X-rayHolger Severino MD Work Phone: Start: 73-92-9754Enqjz Strep (POC)MD Holger Severino Work Phone: Start: 07-14-0129Mbdur chest X-rayMD Holger Severino Work Phone: Start: 04-03-7503QfkqikvwtkxOudnom Hemeyer MD Work Phone: Start: 87-93-9642CR HOLTER MONITOR 2-7 DAYSHolger Severino MD Work Phone: Start: 04-25-2023H/O: bilateral oophorectomyH/O bilateral oophorectomyHolger Severino MD Work Phone: Start: 04-25-2023H/O: hysterectomyHistory of hysterectomyHolger Severino MD Work Phone: Start: 08-19-4086YgvdwfnizlgDjnssp Hemeyer MD Work Phone: Start: 69-49-9110Yzsr tthrc r-t 2d w/wom-mode compl spec&colr dGREG VIGESAAStart: 27-78-1346Bnaq transthorc r-t 2d w/wo m-mode rec f-up/lmtdGREG VIGESAACarpal tunnel syndrome (disorder)Jak Dixon Deliveries by (finding)Jak Dixon Comment on above:x 2ft (qualifier value)Jak Dixon Gallbladder structure (body structure)Jak Dixon H/O: bilateral oophorectomyH/O bilateral oophorectomy Holger Severino MD Work Phone: H/O: hysterectomyHistory of hysterectomyHolger Severino MD Work Phone: Herniated structure (morphologic abnormality)Jak Dixon Comment on above:umblicalTonsillectomyRyan Zack Plan of Treatment DateCare ActivityDetailAuthorStart: 21-72-2707Ilfktkjhs for malignant neoplasm of colonNOMS HealthcareStart: 53-23-1589Xlkvpuri screeningDiabetes: Retinopathy ScreeningNOMS HealthcareStart: 79-61-2419Hymlg screening for proteinDiabetes: Urine Protein ScreeningNOMS HealthcareStart: 01-05-2026 End: 87-41-1482Intwmcj encounter krkaecdhz25/18/2026 3:00 PM EST Office Visit [facility] [address] [place] [address] Holger Severino MD [address] [place] [address] (Fax)[facility] [place] [facility] MedicineStart: 67-02-4047Keqavrub screeningDiabetes: Retinopathy ScreeningNOMS Healthcare Start: 12-08-2025 End: 12-64-3104Vdfstbzsvc A1c/Hemoglobin.total in BloodHemoglobin A1c Lab Routine Type 2 diabetes mellitus with hyperglycemia, without long-term current use of insulin (HCC) Expected: 12/08/2025, Expires: 07/08/2026[facility] Work Phone: Comment on above:Expected: 12/08/2025, Expires: 07/08/2026Start: 76-61-0663Gqturjpkyd A1c measurementDiabetes: Hemoglobin A1C [facility] HealthcareStart: 09-27-2025 End: 83-58-2556Zlvfayzfhecr / ancillary services managementUNIVERSITY OF UTAH HOSPITAL [facility] Start: 70-34-7327Rpzdrcirt vaccinationUNIVERSITY OF UTAH HOSPITAL HealthcareStart: 59-84-5575Kpiddtubyf A1c measurementDiabetes: Hemoglobin V9SGBYOUniversity of [place] Children's HospitalStart: 07-08-2025 End: 23-29-2216Cwtauhw encounter evbjhryre65/21/2025 2:30 PM EDT Office Visit [address] [address] Holger Severino MD [address] [place] [address] Benign essential HTN ; Mixed dyslipidemia ; Metabolic syndrome; Type 2 diabetes mellitus with hyperglycemia, without long-term current use of insulin (HCC); Potassium (K) deficiency; Non morbid obesity due to excess calories; Polypharmacy; Cigarette smoker74 M[address] StreetComment on above:Benign essential HTN ; Mixed dyslipidemia ; Metabolic syndrome; Type 2 diabetes mellitus with hyperglycemia, without long-term current use of insulin (HCC); Potassium (K) deficiency; Non morbid obesity due to excess calories; Polypharmacy; Cigarette smokerStart: 07-01-2025 End: 72-21-7647Hlviolp encounter iqvvrsvnz48/14/2025 2:00 PM EDT Office Visit [address] [address] Holger Severino MD [address] [place] [address] Encounter for wellness examination in adult; Advance directive discussed with patient; Screening mammogram, encounter for; Screening for osteoporosis; Menopause;Osteopenia of multiple sites; History of hysterectomy; H/O bilateral oophorectomy; Non morbid obesity due to excess caloriesNOMS [place] 100 Family MedicineComment on above:Encounter for wellness examination in adult; Advance directive discussed with patient; Screening mammogram, encounter for; Screening for osteoporosis; Menopause; Osteopenia of multiple sites; History of hysterectomy; H/O bilateral oophorectomy; Non morbid obesity due to excess caloriesStart: 63-54-2860Ttcaqqzdh for malignant neoplasm of breastMammogramUniversity of [facility] Children's HospitalStart: 06-15-2025 End: 14-14-7625Xvdwnnxxcdmon metabolic 2000 panel - Serum or PlasmaComprehensive metabolic panel Lab Routine Benign essential HTN Type 2 diabetes mellitus with hyperglycemia, without long-term current use of insulin (HCC) Potassium (K) deficiency Metabolic syndrome Expected: 06/15/2025 (Approximate), Expires: 04/15/2026[facility] HealthcareComment on above:Expected: 06/15/2025 (Approximate), Expires: 04/15/2026Start: 06-15-2025 End: 31-06-7994Qauxjpsnpe A1c/Hemoglobin.total in BloodHemoglobin A1c Lab Routine Type 2 diabetes mellitus with hyperglycemia, without long-term current use of insulin (HCC) Expected: 06/15/2025 (Approximate), Expires: 04/15/2026[facility] Work Phone: Comment on above:Expected: 06/15/2025 (Approximate), Expires: 04/15/2026Start: 06-15-2025 End: 13-33-9384Pgskz 1996 panel - Serum or PlasmaLipid panel Lab Routine Mixed dyslipidemia Metabolic syndrome Expected: 06/15/2025 (Approximate), Expires: 04/15/2026[facility] HealthcareComment on above:Expected: 06/15/2025 (Approximate), Expires: 04/15/2026Start: 06-15-2025 End: 09-07-2910Bwahbfdpfnjf/Creatinine panel in random UrineMicroalbumin / creatinine urine ratio Lab Routine Benign essential HTN Type 2 diabetes mellitus with hyperglycemia, without long-term current use of insulin (HCC) Metabolic syndrome Expected: 06/15/2025 (Approximate), Expires: 04/15/2026[facility] Comment on above:Expected: 06/15/2025 (Approximate), Expires: 04/15/2026Start: 68-73-3823Nixfyxaee vaccinationInfluenza Vaccine (#1)[facility] HealthcareComment on above:Postponed from 07/19/2024 (Patient Refused)Start: 12-49-4250Usffe screening for proteinDiabetes: Urine Protein ScreeningNOMO HealthcareStart: 04-15-2025 End: 31-65-2060Czxbfnk encounter procedureNOMS CI FM 100Comment on above:Benign essential HTN (CMS/HCC); Type 2 diabetes mellitus with hyperglycemia, without long-term current use of insulin (CMS/HCC); Potassium (K) deficiency; Mixed dyslipidemia (CMS/HCC); Metabolic syndrome; Cigarette smoker; Non morbid obesity due to excess caloriesStart: 01-25-2025 End: 35-45-4012Mfpdunh encounter procedureNOMS CI FM 100Comment on above: Encounter for examination following treatment at hospital; Closed fracture of one rib of left side with routine healing, subsequent encounter; Chest wall pain; Viral infectionStart: 01-19-2025 End: 18-85-4999Oheyuflatd A1c/Hemoglobin.total in BloodHemoglobin A1c Lab Routine Type 2 diabetes mellitus with hyperglycemia, without long-term current use of insulin (CMS/HCC) Expected: 01/19/2025 (Approximate), Expires: 10/21/2025 [facility] Work Phone: Comment on above:Expected: 01/19/2025 (Approximate), Expires: 10/21/2025Start: 90-85-7968Wgpplaglmd A1c measurementDiabetes: Hemoglobin X8OYCGOExcelsior Springs Medical CenterStart: 01-11-2025 End: 05-72-9981Qnnltnl encounter fqldwkaxw76/24/2025 11:30 AM EST Office Visit [facility] [address] [place] [address] Holger Severino MD [address] [place] [address] (Fax) ArrivedNOMS CI FM 100Comment on above: ArrivedStart: 11-30-2024 End: 96-23-9187Blcvjnx encounter wdytpyqsu80/13/2025 1:45 PM EST Office Visit [facility] [address] [place] [address] Holger Severino MD [address] [place] [address] (Fax) ArrivedNOMS CI FM 100Comment on above: ArrivedStart: 10-21-2024 End: 84-64-8634Jxklxdv encounter procedureNOMS CI FM 100Comment on above:Benign essential HTN (CMS/HCC); Mixed dyslipidemia (CMS/HCC); Metabolic syndrome; Type 2 diabetes mellitus with hyperglycemia, without long-term current use of insulin (CMS/HCC); Potassium (K) deficiency; Cigarette smoker; Polypharmacy; Non morbid obesity due to excess caloriesStart: 63-20-6645Iruroadods A1c measurementDiabetes: Hemoglobin S5FROFE HealthcareStart: 07-22-2024 End: 00-89-9805Ljjuefm encounter procedureNOMS CI FM 100Comment on above:Benign essential HTN (CMS/HCC); Mixed dyslipidemia (CMS/HCC); Type 2 diabetes mellitus with hyperglycemia, without long-term current use of insulin (CMS/HCC); Potassium (K) deficiency; Cigarette smoker; Polypharmacy; Non morbid obesity due to excess caloriesStart: 72-36-0119Erojlyspsq A1c measurementDiabetes: Hemoglobin Q4GGXHK HealthcareStart: 90-84-6391Lhkbwqwkw vaccinationInfluenza Vaccine (#1)[facility] HealthcareStart: 81-29-7722Rdodh screening for proteinDiabetes: Urine Protein ScreeningUNIVERSITY OF UTAH HOSPITAL HealthcareStart: 1966 Screening for malignant neoplasm of colonNOMO HealthcareXR Chest 2 Views [facility]XR [facility] 2 [facility] Payers DatePayer CategoryPayerPolicy [id number] [id number] [facility] [id number] 2023-Present [phone] [address] [place] [address] [id number]-pqs61-81-0116[facility] [id number] 2..1.478091.3.579.2.174 59-89-3017Jxujdet4300867 2.0.1.777946.3.579.2.19407-03-2362Mbrnylu7480972 2.0.1.932620.3.579.2.48857-79-7769Bbmzpzp87122906 2..1.029220.3.579.2.59256-41-4728Mbymrmp12631206 2.0.1.607672.3.579.2.277570-19-4584Uxbykfv80421544 2.160.1.321377.3.579.2.684093-25-9635Vqahezo1322009 2.160.1.363143.3.579.2.039310-21-9243Orfupjc4066332 2.0.1.254632.3.579.2.168320-53-3362Filahoq7093081 2.16.840.1.096481.3.579.2.098232-84-2222Fplyspx3222913 2..0.1.810422.3.579.2.234343-37-2457Scmhuoj9888930 2..0.1.449701.3.579.2.022753-51-6722Zxejsrm7612837 2.0.1.666689.3.579.2.4344 1975RorqqdeFJI802K58215EzqgegrUbmpypqqhnk [id number] 93e55568-6ub5-4v97-0632-t6y4egp51x76Caeqazu81544455 2.840.1.131811.3.579.2.312Tphhlkh29475590 2.0.1.399768.3.579.2.531 Social History DateTypeDetailFacilityUnknown if ever smokedNotexas county memorial hospital [employer] Other Start: 01-29-2024 End: 01-41-7404Spp Assigned At [facility]. [facility] HospitalTobacco smoking statusNo Smoking Status [facility] Start: 60-73-0771Kdu Assigned At Centervilletart: 24-31-9364Rimbhhq smoking status NHISSmokes tobacco dailyNOMS HealthcareHistory of tobacco useCigarette SmokerNOMS HealthcareStart: 05-41-3914Fnppgxv use and exposureSmokeless tobacco non-user [facility] HealthcareStart: 04-22-2024 End: 97-48-1387Tukzfvxfh beverage intakeEx-drinker (finding)[facility] Start: 01-29-2024 End: 26-84-0550Ijvaaff of Social functionNOMS HealthcareDo you belong to any clubs or organizations such as spiritism groups, unions, fraternal or athletic sindi ups, or school groups?NoNOMS HealthcareAre you now , , , , never or living with a partner?MarriedNOMS HealthcareHow often to you have a drink containing alcohol?Monthly or lessNOMS HealthcareHow many standard drinks containing alcohol do you have on a typical day?3 or 4NOMS HealthcareHow often do you have 6 or more drinks on 1 occasion?NeverNOMS HealthcareStart: 84-48-4032Wwt hard is it for you to pay for the very basics like food, housing, medical care, and heatingNot hard at allNOMS HealthcareDo you feel stress - tense, restless, nervous, or anxious, or unable to sleep at night because yourmind is troubled all the time - these days [OSQ]To some extent [facility] Healthcare(I/We) worried whether (my/our) food would run out before (I/we) got money to buy more.Never trueNOMS HealthcareStart: 34-38-8758Gudcdpfru61TZZX HealthcareStart: 51-46-1979Oyvbjhd Rtpykgr39-17 cigs/day, thinking about quittingNOMS HealthcareStart: 44-10-9168Neytkpa Comment1-2 drinks for 2-4x a month in the past year, Caffeine intake 4 20 oz soda/ dayNOMO HealthcareStart: 81-36-0149Int assigned at birthNot on fileNOMO HealthcareStart: 02-04-2025 Tobacco smoking status NHISSmoker (finding)[facility] Start: 02-04-2025 End: 62-72-1477RvtXvzwbg (finding)[facility] Medical Equipment Procedure CodeEquipment CodeEquipment Original TextEquipment IdentifierDates1 each by Other route in the morning. Take before meals.[id number]: 07-12-2025 End: each 2 (two) times a day as needed (symptoms)[id number]: [id number]: 07-08-2025 End: 07-12-2025 Functional Status [id number] Health Questionnaire 2 item (PHQ- 2) [Reported][facility] [id number] Health Questionnaire 2 item (PHQ- 2) [Reported][facility] [id number] Hospitals [facility] Clinical Notes 08-15-2023 to 07-08-2025 Note Date & [id number] History of Present illness Narrative* Holger Severino MD - 07/08/2025 2:30 PM EDT Images from the original note were not included. Patient ID: Lula Yo is a 59 y.o. female who presents for: Diabetes Mellitus Patient presents for follow up of diabetes. Current symptoms include: visual disturbances. Symptomshave stabilized. Patient denies increased appetite, paresthesia of the feet, polydipsia, and polyuria. Evaluation to date has included: fasting blood sugar, fasting lipid panel, and hemoglobin A1C. Home sugars: patient does not check sugars. Hypertension Patient is here for follow-up of elevated blood pressure. She is not exercising and is adherent to a low-salt diet. Blood pressure is well controlled at home. Cardiac symptoms: lower extremity edema.Patient denies chest pain, dyspnea, irregular heart beat, and palpitations. Cardiovascular risk factors: diabetes mellitus, dyslipidemia, hypertension, obesity (BMI >= 30 kg/m2), sedentary lifestyle, and smoking/ tobacco exposure. Use of agents associated with hypertension: none. History of target organ damage: none. Hyperlipidemia Pt who presents for follow-up of dyslipidemia. A repeat fasting lipid profile was done. The patientdoes not use medications that may worsen dyslipidemias (corticosteroids, progestins, anabolic steroids, diuretics, beta-blockers, amiodarone, cyclosporine, olanzapine). Exercise: rarely. Review of Systems Constitutional: Negative for activity change and fatigue. Respiratory: Negative for cough, shortness of breath and wheezing. Cardiovascular: Negative for chest pain, palpitations and leg swelling. Neurological: Negative for light-headedness and headaches. Objective The patient is pleasant and in no acute distress. The neck is supple and trachea is midline. No masses are appreciated. The heart is regular rate and rhythm without S3, S4. No murmur. The patient has normal respiratory pattern. The breath sounds are symmetrical without evidence of rhonchi or rales. No wheezing. The skin is warm and dry. The lower extremities have trace edema. The patient has good eye contact and speech is clear. Appropriate affect. 07/08/2025 2:30 PM 07/01/2025 2:03 PM 04/15/2025 11:47 AM 01/25/2025 1:53 PM Vitals BMI 36.4 kg/m2 36.64 kg/m2 33.41 kg/m2 33.41 kg/m2 BSA (m2) 2.18 m2 2.19 m2 2.09 m2 2.09 m2 Systolic 126 128 Diastolic 70 76 Heart Rate 76 65 56 52 SpO2 96 % 96 % 98 % 98 % Height (in) 5' 6 5' 6 5' 6 5' 6 Weight (lb) 225.5 227 207 207 Visit Report Report Report Report Report Allergies Allergen Reactions Moxifloxacin Anaphylaxis Other Reaction(s): [...] (10 mg) by mouth Daily 90 tablet 0 aspirin 81 MG EC tablet Take 81 [...] daily, orally. cholecalciferol (Vitamin D-3) 250 MCG (75970 UT) tablet Take 10,000 Units by mouth in the morning. esomeprazole (NexIUM) [address] capsule Take 40 mg by mouth in the morning. Take before meals. Do not open capsule.. gemfibrozil (Lopid) 600 MG tablet Take 1 tablet (600 mg) by mouth in the morning and 1 tablet (600 mg) before bedtime. 180 tablet 0 lisinopril 40 MG tablet Take 1 tablet (40 mg) by mouth Daily 90 tablet 0 magnesium oxide (Mag-Ox) 400 MG tablet Take 400 mg by mouth in the morning and 400 mg before bedtime. 1 tablet two times daily, orally. metoprolol tartrate (Lopressor) 100 MG tablet Take 1 tablet (100 mg) by mouth in the morning and 1 tablet (100 mg) before bedtime. 180 tablet 0 pioglitazone (Actos) 30 MG tablet Take 1 tablet (30 mg) by mouth Daily 90 tablet 0 spironolactone (Aldactone) 25 MG tablet Take 1 tablet (25 mg) by mouth in the morning and 1 tablet (25 mg) before bedtime. 180 tablet 0 sucralfate (Carafate) 1 g tablet Dissolve 1 tablet in 2 oz water. Take 30 minutes before meals 3 times daily and at bedtime (Patient taking differently: Dissolve 1 tablet in 2 oz water. Take 30 minutes before meals 3 times daily and at bedtime as needed) 120 tablet 0 No current facility-administered medications on file prior to visit. 1. Benign essential HTN Chronic problem, stable, to goal. She is getting a little bit of fluid retention between the amlodipine any Actos. When discussed shedoes not feel that it is severe enough to change her medication regimen or increase the diuretic. - lisinopril 40 MG tablet; Take 1 tablet (40 mg) by mouth Daily Dispense: 90 tablet; Refill: 1 - metoprolol tartrate (Lopressor) 100 MG tablet; Take 1 tablet (100 mg) by mouth in the morning and1 tablet (100 mg) before bedtime. Dispense: 180 tablet; Refill: 1 - amLODIPine (Norvasc) 10 MG tablet; Take 1 tablet (10 mg) by mouth Daily Dispense: 90 tablet; Refill: 1 - spironolactone (Aldactone) 25 MG tablet; Take 1 tablet (25 mg) by mouth in the morning and 1 tablet (25 mg) before bedtime. Dispense: 180 tablet; Refill: 1 2. Mixed dyslipidemia In prescribing a renewal to their current medication, consideration of the following encompasses moderate decision making; the current prescriptions and supplements, the current allergies and medication intolerances, current medical conditions, and potential drug interactions. The patient was given a chance to ask questions today and all questions were answered. - gemfibrozil (Lopid) 600 MG tablet; Take 1 tablet (600 mg) by mouth in the morning and 1 tablet (600 mg) before bedtime. Dispense: 180 tablet; Refill: 1 3. Metabolic syndrome Chronic problem, unstable, multifactorial with moderate to complex decision making. This patient meets criteria, according to guidelines from the National Heart, Lung, and Blood [employer] (NHLBI) and the [place] [employer] (AHA), metabolic syndrome is diagnosed when a patient has at least 3 of the following 5 conditions: Fasting glucose >up=373 mg/dL (or receiving drug therapy for hyperglycemia) Blood pressure >or= 130/85 mm Hg (or receiving drug therapy for hypertension) Triglycerides >ot=957 mg/dL (or receiving drug therapy for hypertriglyceridemia) HDL-C <40 mg/dL in men or <50 mg/dL in women (or receiving drug therapy for reduced HDL-C) Waist circumference =102 cm (40 in) in men or =88 cm (35 in) in women; if [place], =90 cm (35 in) in men or =80 cm (32 in) in women I have further discussed with the patient the implications and increased risk factors associated with this syndrome. I have discussed with the patient that we must treat these conditions individually. I have educated the patient or their pharmaceutical specialty representative, discussing disease processes, counseling on prevention, and discussing treatment options and plans as appropriate. Multiple questions were answered. 4. Type 2 diabetes mellitus with hyperglycemia, without long-term current use of insulin (HCC) Ref Range & Units 4 wk ago (06/28/25) 3 mo ago (04/09/25) 9 mo ago (10/20/24) 1 yr ago (07/17/24) 1 yr ago (04/20/24) 1 yr ago (10/22/23) 2 yr ago (04/24/23) Hemoglobin A1C <5.7 % 7.0 High 7.9 High CM 7.4 High R, CM 7.4 High R, CM 7.3 High R She is technically to goal but she is still hyperglycemic. We discussed the national standard of 7 and my personal standard for her would be to be less than 6.5 which is where I believe the science should be. She prefers not to adjust her medicines today. - pioglitazone (Actos) 30 MG tablet; Take 1 tablet (30 mg) by mouth Daily Dispense: 90 tablet; Refill: 1 - Hemoglobin A1c; Future - Blood Glucose Monitoring Suppl (ONE TOUCH ULTRA 2) w/Device kit; Take BS when symptomatic, twice daily as needed Dispense: 1 kit; Refill: 0 - Lancets 30G misc; 1 each 2 (two) times a day as needed (symptoms) Dispense: 100 each; Refill: 1 - Hemoglobin A1c - glucose blood (OneTouch Ultra) test strip; 1 each by Other route in the morning. Take before meals. Dispense: 100 each; Refill: 3 5. Potassium (K) deficiency Chronic problem, stable continue to monitor longitudinally 6. Non morbid obesity due to excess calories Encouraged the lifestyle changes 7. Polypharmacy Chronic problem The patient meets the criteria for polypharmacy; 5 or more prescriptions or multi-morbidity definedas 5 or more diagnoses. Polypharmacy can significantly increase the risk of adverse drug events and negatively impact adherence. Consideration of factors such as clinician agreement, patient perspective, and de-prescribing,as appropriate can improve patient outcomes while simplifying care. This requires longitudinal monitoring as there is at least a moderate risk of morbidity and requires at least a moderate degree of evaluation and management. 8. Cigarette smoker Briefly discussed and we have had multiple discussions before about the importance of stop cigarette smoking. Please Note: Portions of this chart may have been created using voice recognition software. Occasionally a wrong-word or sound-like substitutions may have occurred due to inherent limitations of the voice recognition software. Please read the chart carefully and recognize, using context, where the substitutions may have occurred. documented in this encounterUniversity of [facility] Children's [id number] History of Present illness Narrative* Holger Severino MD - 07/01/2025 2:00 PM EDT Images from the original note were not included. Patient ID: Lula Yo is a 59 y.o. female who presents for: Adult Wellness: See Scanned Wellness packet Advance Directive/Living Will: No Health Care Power of Ceo [place]: No Review of Systems Constitutional: Negative for appetite change, chills, fever and unexpected weight change. Breasts: Negative for breast mass and breast discharge. Respiratory: Negative for cough, shortness of breath and wheezing. Cardiovascular: Positive for palpitations and leg swelling. Negative for chest pain. Gastrointestinal: Negative for abdominal pain, constipation and diarrhea. Genitourinary: Positive for frequency and urgency. Neurological: Positive for light-headedness. Negative for headaches. Psychiatric/Behavioral: Positive for sleep disturbance. Negative for behavioral problems. The patient is nervous/anxious. Objective The patient is pleasant and in no acute distress. The head is normocephalic and atraumatic. Both eyes appear grossly normal without obvious lid pathology or icterus. Both ears hearing is grossly intact. The neck is supple and trachea is midline. No masses are appreciated. The anterior cervical lymphatics demonstrates shoddy bilateral nontender lymphadenopathy. There is no supraclavicular lymphadenopathy. The heart is regular rate and rhythm without S3, S4. No murmur. The patient has normal respiratory pattern. The breath sounds are mildly decreased diffusely, but symmetrical without evidence of rhonchi or rales. No wheezing. The skin is warm and dry. The lower extremities have 1+ edema. Neurologic screening exam is nonfocal. The patient is alert. There is no overt gross evidence of cognitive impairment The patient has good eye contact and speech is clear. Appropriate affect. 07/08/2025 2:30 PM 07/01/2025 2:03 PM 04/15/2025 11:47 AM 01/25/2025 1:53 PM Vitals BMI 36.4 kg/m2 36.64 kg/m2 33.41 kg/m2 33.41 kg/m2 BSA (m2) 2.18 m2 2.19 m2 2.09 m2 2.09 m2 Systolic 126 128 Diastolic 70 76 Heart Rate 76 65 56 52 SpO2 96 % 96 % 98 % 98 % Height (in) 5' 6 5' 6 5' 6 5' 6 Weight (lb) 225.5 227 207 207 Visit Report Report Report Report Report Allergies Allergen Reactions Moxifloxacin Anaphylaxis Other Reaction(s): [...] bedtime for anxiety (anxiety). 30 tablet 0 aspirin 81 MG EC tablet Take 81 [...] daily, orally. cholecalciferol (Vitamin D-3) 250 MCG (71286 UT) tablet Take 10,000 Units by mouth in the morning. esomeprazole (NexIUM) [address] capsule Take 40 mg by mouth in the morning. Take before meals. Do not open capsule.. magnesium oxide (Mag-Ox) 400 MG tablet Take 400 mg by mouth in the morning and 400 mg before bedtime. 1 tablet two times daily, orally. sucralfate (Carafate) 1 g tablet Dissolve 1 tablet in 2 oz water. Take 30 minutes before meals 3 times daily and at bedtime (Patient taking differently: Dissolve 1 tablet in 2 oz water. Take 30 minutes before meals 3 times daily and at bedtime as needed) 120 tablet 0 No current facility-administered medications on file prior to visit. 1. Encounter for wellness examination in adult (Primary) I have reviewed the patients PMShx, medications, and reconciled the problem list. Health maintenance and risk was reviewed and discussed. I also reviewed and discussed as appropriate; immunizations, colon cancer screening, breast and cervical cancer screening, recommended and any current lab evaluation. All items were brought up to date unless declined by the patient. 2. Advance directive discussed with patient Patient voluntarily agreed to discuss advance care planning at today's wellness visit. We discussed that an advance directive is a legal document that only goes into effect if the patient is incapacitated and unable to speak for themselves. This would help us to decide what care the patient would want. We discussed emergency treatments to keep the patient alive such as CPR, ventilator use and concept of comfort. We discussed how patients could make their wishes known through a living will, durable power of regulatory attorney for healthcare, or other advanced directives. We discussed telling harmon people about their advance and a copy will be kept in the EHR. I discussedthat they should also make me an emergency contact in their cell phone, and/or notify their POA that I have a copy of the advanced directives. 3. Screening mammogram, encounter for She notes that she has a lot on her plate and too much to do right now she is just overdue on the mammogram, she has had them regularly without problem, we have mutually agreed that we will defer this until her upcoming visit in a couple of weeks. We should also then synchronize with her DEXA scan which is also not due for about a month or so. 4. Screening for osteoporosis As above 5. Menopause As above 6. Osteopenia of multiple sites As above 7. History of hysterectomy Exclusionary diagnosis for the [facility] measures for cervical cancer screening 8. H/O bilateral oophorectomy Patient has chosen not to be on estrogen replacement. We did discuss her urinary symptoms. I do suspect she has atrophic but she has not had a physician examine her evaluate her gynecologically in some time. I did suggest she have that examination whether here or with the community education coordinator as completelyup to her. That is beyond the scope today's visit. 9. Non morbid obesity due to excess calories Encouraged decrease simple carbohydrates and increase walking program. 10. Episodic lightheadedness We discussed and this is mostly upon arising and then resolves. I discussed with her with her medications for her blood pressure that that can be a problem. I discussed the importance of staying wellhydrated which she admits she does not do. We will give this a trial and she will see if this helpsto resolve her situation. Please Note: Portions of this chart may have been created using voice recognition software. Occasionally a wrong-word or sound-like substitutions may have occurred due to inherent limitations of the voice recognition software. Please read the chart carefully and recognize, using context, where the substitutions may have occurred. documented in this encounterLeah Ville [id number] History of Present illness Narrative* Holger Severino MD - 04/15/2025 11:30 AM EDT Images from the original note were not included. Patient ID: Lula Yo is a 59 y.o. female who presents for: Hypertension Patient is here for follow-up of elevated blood pressure. She is not exercising and is not adherentto a low-salt diet. Blood pressure is not checking BP at home. Cardiac symptoms: none. Patient denies chest pain, dyspnea, irregular heart beat, lower extremity edema, and palpitations. Cardiovascular risk factors: diabetes mellitus, dyslipidemia, hypertension, [...] none. Symptoms have stabilized. Patient denies increased appetite and paresthesia of the feet. Evaluation to date has included: hemoglobin A1C. Home sugars: patient does not check sugars. She has not been taking the actos. She has it at home. Review of Systems Constitutional: Negative for activity change and fatigue. Respiratory: Negative for cough, shortness of breath and wheezing. Cardiovascular: Negative for chest pain, palpitations and leg swelling. Neurological: Negative for light-headedness and headaches. Objective The patient is pleasant and in no acute distress. The neck is supple and trachea is midline. No masses are appreciated. The heart is regular rate and rhythm without S3, S4. No murmur. The patient has normal respiratory pattern. The breath sounds are Are diffusely decreased but symmetrical without evidence of rhonchi or rales. No wheezing. The skin is warm and dry. The lower extremities have trace edema. The patient has good eye contact and speech is clear. Appropriate affect. 04/15/2025 11:47 AM 01/25/2025 1:53 PM 10/21/2024 11:35 AM 07/22/2024 11:31 AM 07/02/2024 10:59 AM 04/22/2024 11:24 AM 04/01/2024 1:35 PM Vitals BMI 33.41 kg/m2 33.41 kg/m2 33.41 kg/m2 34.22 kg/m2 34.22 kg/m2 34.22 kg/m2 33.25 kg/m2 BSA (m2) 2.09 m2 2.09 m2 2.09 m2 2.12 m2 2.12 m2 2.12 m2 2.09 m2 Systolic 128 126 124 126 Diastolic 76 70 74 76 Heart Rate 56 52 57 52 65 58 SpO2 98 % 98 % 97 % 99 % 99 % 96 % Height (in) 5' 6 5' 6 5' 6 5' 6 5' 6 5' 6 5' 6 Weight (lb) 207 207 207 212 212 212 206 Visit Report Report Report Report Report Report Report Report Allergies Allergen Reactions Moxifloxacin Anaphylaxis Other Reaction(s): [...] bedtime for anxiety (anxiety). 30 tablet 0 aspirin 81 MG EC tablet Take 81 [...] daily, orally. cholecalciferol (Vitamin D-3) 250 MCG (58796 UT) tablet Take 10,000 Units by mouth in the morning. esomeprazole (NexIUM) [address] capsule Take 40 mg by mouth in the morning. Take before meals. Do not open capsule.. magnesium oxide (Mag-Ox) 400 MG tablet Take 400 mg by mouth in the morning and 400 mg before bedtime. 1 tablet two times daily, orally. sucralfate (Carafate) 1 g tablet Dissolve 1 tablet in 2 oz water. Take 30 minutes before meals 3 times daily and at bedtime (Patient taking differently: Dissolve 1 tablet in 2 oz water. Take 30 minutes before meals 3 times daily and at bedtime as needed) 120 tablet 0 pioglitazone (Actos) 30 MG tablet Take 1 tablet (30 mg) by mouth Daily (Patient not taking: Reported on 04/15/2025) 90 tablet 0 [DISCONTINUED] xakicsgnjyvfazh-yhnikmrrhgymhvt-IB 30-2-10 MG/5ML syrup Take 10 mL by mouth every 6 (six) hours if needed [DISCONTINUED] gabapentin (Neurontin) 300 MG capsule Take 1-2 capsules nightly 60 capsule 0 [DISCONTINUED] ipratropium-albuterol (Duo-Neb) 0.5-2.5 mg/3 mL nebulizer solution Take 3 mL by nebulization 4 (four) times a day as needed for wheezing 360 mL 0 [DISCONTINUED] Nebulizers (Compressor/Nebulizer) misc Use 4 times per day and PRN SOB/wheezing 1 each 0 No current facility-administered medications on file prior to visit. 1. Benign essential HTN Chronic problem, stable, to goal. In prescribing a renewal to their current medication, consideration of the following encompasses moderate decision making; the current prescriptions and supplements, the current allergies and medication intolerances, current medical conditions, and potential drug interactions. The patient was given a chance to ask questions today and all questions were answered. - amLODIPine (Norvasc) 10 MG tablet; Take 1 tablet (10 mg) by mouth Daily Dispense: 90 tablet; Refill: 0 - lisinopril 40 MG tablet; Take 1 tablet (40 mg) by mouth Daily Dispense: 90 tablet; Refill: 0 - metoprolol tartrate (Lopressor) 100 MG tablet; Take 1 tablet (100 mg) by mouth in the morning and1 tablet (100 mg) before bedtime. Dispense: 180 tablet; Refill: 0 - spironolactone (Aldactone) 25 MG tablet; Take 1 tablet (25 mg) by mouth in the morning and 1 tablet (25 mg) before bedtime. Dispense: 180 tablet; Refill: 0 - Comprehensive metabolic panel; Future - Microalbumin / creatinine urine ratio; Future - Comprehensive metabolic panel - Microalbumin / creatinine urine ratio 2. Type 2 diabetes mellitus with hyperglycemia, without long-term current use of insulin (HCC) Component Ref Range & Units 2 wk ago (04/09/25) 6 mo ago (10/20/24) 9 mo ago (07/17/24) 1 yr ago (04/20/24) 1 yr ago (10/22/23) 2 yr ago (04/24/23) 2 yr ago (10/25/22) Hemoglobin A1C <5.7 % 7.9 High 7.4 High R, CM 7.4 High R, CM 7.3 High R, CM 6.4 High R, CM 6.4 High R, CM 6.8 High Chronic problem, unstable and not to goal. Discussed with the patient that this is not been to goal in 1 year and she is causing permanent irreversible damage to her body. She has the Actos and she is going to give this a try she just never got around to taking it. - Hemoglobin A1c; Future - Comprehensive metabolic panel; Future - Microalbumin / creatinine urine ratio; Future - Hemoglobin A1c - Comprehensive metabolic panel - Microalbumin / creatinine urine ratio 3. Potassium (K) deficiency - Comprehensive metabolic panel; Future - Comprehensive metabolic panel 4. Mixed dyslipidemia - gemfibrozil (Lopid) 600 MG tablet; Take 1 tablet (600 mg) by mouth in the morning and 1 tablet (600 mg) before bedtime. Dispense: 180 tablet; Refill: 0 - Lipid panel; Future - Lipid panel 5. Metabolic syndrome - Comprehensive metabolic panel; Future - Lipid panel; Future - Microalbumin / creatinine urine ratio; Future - Comprehensive metabolic panel - Lipid panel - Microalbumin / creatinine urine ratio 6. Cigarette smoker Chronic problem that is unstable. The patient continues to use tobacco products or nicotine. Your goal is to quit using tobacco or vapor, as it significantly worsens health risks and complicates treatments. The patient was given a chance to ask questions and they declined medical intervention. Approximatley 5 minutes was spent on counseling 7. Non morbid obesity due to excess calories Briefly encouraged lifestyle changes which she has not been successful with. Chronic problem The patient meets the criteria for polypharmacy; 5 or more prescriptions or multi-morbidity definedas 5 or more diagnoses. Polypharmacy can significantly increase the risk of adverse drug events and negatively impact adherence. Consideration of factors such as clinician agreement, patient perspective, and de-prescribing,as appropriate can improve patient outcomes while simplifying care. This requires longitudinal monitoring as there is at least a moderate risk of morbidity and requires at least a moderate degree of evaluation and management. documented in this encounterUniversity of Missouri Children's [id number] Evaluation note* Diagnosis Onset Date Resolution Status Admit Date Chest congestion noneactiveMarch 2024 3:04pmSore throatnoneactiveMarch 2024 3:04pm [facility] Work Phone: [phone]) [phone] History of Present illness Narrative* Holger Severino MD - 01/11/2025 11:30 AM EST Images from the original note were not included. Patient ID: Lula Yo is a 59 y.o. female who presents for: Trying to push van out of snow and felt a pop on chest. Left 5th rib fx DX ER. Medications for her pain Methocarbonal And OTC ibuprofen 800 mg 3 times daily. She is still rating her pain at a proximally an 8/10. Hard to take a deep breath but no specific shortness of breath. Objective The patient is pleasant and in no acute distress , but obviously in pain The patient has good eye contact and clear speech I did not palpate the area of the rib fracture as this is just been diagnosed. Her lungs do have some mild diffuse decrease in her breath sounds but otherwise they are clear to auscultation. Visit Vitals OB Status Hysterectomy Smoking Status Every Day Allergies Allergen Reactions Moxifloxacin Anaphylaxis Other Reaction(s): [...] daily, orally. cholecalciferol (Vitamin D-3) 250 MCG (38769 UT) tablet Take 10,000 Units by mouth [...] meals 3 times daily and at bedtime (Patient taking differently: Dissolve 1 tablet in 2 oz water. Take 30 minutes before meals 3 times daily and at bedtime as needed) 120 tablet 0 No current facility-administered medications on file prior to visit. 1. Closed fracture of one rib of left side with routine healing, subsequent encounter (Primary) We had discussion we discussed the basic pathology and normal healing process. I discussed with her the 1st step and pain would be to use a lidocaine patch. I did offer [id number] but she preferred a trial of prior authorization for the prescription. As an addendum ultimately the prescription was denied by the insurance company and we recommended she then get the [id number] patch. The patches to be placed directly over the point of maximal pain. We also discussed the importance of intermittently taking full deep breaths in order to prevent atelectasis and possible pneumonia. I discussed with her that smoking will slow the healing process. documented in this encounterUniversity of Missouri Children's [id number] History of Present illness Narrative* Holger Severino MD - 11/30/2024 1:45 PM EST Images from the original note were not [...] is speaking full sentences. There are Diffusely decreasedand coarse sounding but symmetrical breath sounds. No rhonchi or rales are appreciated. No wheezes. Skin is warm and dry Visit Vitals OB Status Hysterectomy Smoking Status Every Day PDMP reviewed, Holger Severino MD on 11/30/2024 2:25 PM Appears [...] daily, orally. cholecalciferol (Vitamin D-3) 250 MCG (04910 UT) tablet Take 10,000 Units by mouth [...] health department concerning mycoplasma which she was notcovered for. She is specifically requesting hydrocodone cough syrup. She has been on this previously in it worked well for her without side effects. It does not seem unreasonable to proceed with thisin do with the coughing I am noting, [...] problems if not taken the correct way, ortaken with another drug or food item that [...] polypharmacy; 5 or more prescriptions or multi-morbidity definedas 5 or more diagnoses. Polypharmacy can significantly increase the risk of preventable adverse drug events and negatively impact adherence. Consideration of diverse factors such as clinician agreement, patient perspective,and de-prescribing, as appropriate can improve patient outcomes while simplifying care. This requires longitudinal monitoring as there is at least a moderate risk of morbidity and requires at least amoderate degree of evaluation and management. documented in this encounterUniversity of Missouri Children's [id number] History of Present illness Narrative* Holger Severino MD - 10/21/2024 11:30 AM EST Images from the original note were not included. Patient ID: Lula Yo is a 59 y.o. female who presents for: Hypertension Patient is here for follow-up of elevated blood pressure. She is not exercising and is not adherentto a low-salt diet. Blood pressure is well [...] tried the metformin for three days in [facility] when she got back from [place] and it made her really ill . [...] daily, orally. cholecalciferol (Vitamin D-3) 250 MCG (80955 UT) tablet Take 10,000 Units by mouth [...] Take before meals. 60 tablet 0 [DISCONTINUED] bikfjpim-nxrczqnti-jrvbehchoghjzi (Cortisporin) 3.5-78927-5 otic suspension Apply 3 drops to affected [...] (100 mg) by mouth in the morning and1 tablet (100 mg) before bedtime. Dispense: 180 [...] hyperglycemia, without long-term current use of insulin ([facility]) Chronic problem, unstable, not to goal. We [...] polypharmacy; 5 or more prescriptions or multi-morbidity definedas 5 or more diagnoses. Polypharmacy can significantly increase the risk of preventable adverse drug events and negatively impact adherence. Consideration of diverse factors such as clinician agreement, patient perspective,and de-prescribing, as appropriate can improve patient outcomes while simplifying care. This requires longitudinal monitoring as there is at least a moderate risk of morbidity and requires at least amoderate degree of evaluation and management. 7. Non morbid obesity due to excess calories Encouraged lifestyle changes. documented in this encounterUniversity of Missouri Children's [id number] History of Present illness Narrative* Holger Severino MD - 07/22/2024 11:30 AM EDT Images from the original note were not included. Patient ID: Lula Yo is a 58 y.o. female who presents for: Hypertension Patient is here for follow-up of elevated blood pressure. She is not exercising and is not adherentto a low-salt diet. Blood pressure is not checking BP at home. Cardiac symptoms: dyspnea, palpitations, and lightheadedness . Patient denies chest pain, irregular heart beat, and lower extremity edema. Cardiovascular risk factors: diabetes mellitus, dyslipidemia, hypertension, obesity (BMI >= 30kg/m2), sedentary lifestyle, and smoking/ tobacco exposure. Use [...] children. This test was performed on the [employer] c503 platform. Effective 11/04/23, a change in test platforms from the [employer] to the Jax armando c503 may have shifted HbA1c results compared to historical results. Based on laboratory validation testing conducted at [facility], the Jax platform relative to the Naylor [...] mL/min/1.73m2 Final BUN/CREATININE RATIO 01/31/2024 SEE NOTE: 6 (calc) Final Comment: Not Reported: BUN and [...] daily, orally. cholecalciferol (Vitamin D-3) 250 MCG (67642 UT) tablet Take 10,000 Units by mouth [...] (100 mg) by mouth in the morning and1 tablet (100 mg) before bedtime. Dispense: 180 tablet; Refill: 1 - amLODIPine (Norvasc) 10 MG tablet; Take 1 tablet (10 mg) by mouth Daily Dispense: 90 tablet; Refill: 1 - spironolactone (Aldactone) 25 MG tablet; Take 1 tablet (25 mg) by mouth in the morning and 1 tablet (25 mg) before bedtime. Dispense: 180 tablet; Refill: 1 2. Mixed dyslipidemia ([facility]) In prescribing a renewal to their current [...] hyperglycemia, without long-term current use of insulin ([facility]) Chronic problem, unstable, not to goal. She [...] by mouth in the morning and 1 tablet(500 mg) in the evening. Take before meals. Dispense: 60 tablet; Refill: 0 - metFORMIN (Glucophage) 850 MG tablet; Take 1 tablet (850 mg) by mouth in the morning and 1 tablet(850 mg) in the evening. Take before meals. [...] polypharmacy; 5 or more prescriptions or multi-morbidity definedas 5 or more diagnoses. Polypharmacy can significantly increase the risk of preventable adverse drug events and negatively impact adherence. Consideration of diverse factors such as clinician agreement, patient perspective,and de-prescribing, as appropriate can improve patient outcomes while simplifying care. This requires longitudinal monitoring as there is at least a moderate risk of morbidity and requires at least amoderate degree of evaluation and management. 6. Non morbid obesity due to excess calories Lifestyle changes as noted 7. Other infective acute otitis externa of left ear Encouraged patient to not use Q-tips in the ears. Washcloth on a fingertip. - tmxzxrtk-fkdbpqkmr-srkomqzpahqnml (Cortisporin) 3.5-07459-0 otic suspension; Apply 3 drops to affected ear 3 times daily for 7 days Dispense: 10 mL; Refill: 0 8. Eustachian tube dysfunction, bilateral Chronic problem. Most likely a combination of allergic rhinitis and smoking irritation. - azelastine (Astelin) 0.1 % nasal spray; Administer 1 spray into each nostril in the morning and 1spray before bedtime. Use in each nostril as directed. Dispense: 30 mL; Refill: 12 documented in this encounterUniversity of Missouri Children's [id number] History of Present illness Narrative* Holger Severino MD - 07/07/2024 11:27 AM EDT I can see her to re-evaluate if that is what she would like to do. However is probably most likely a viral illness that is just going to take some time. As supportive treatment especially if head congestion is a problem I do recommend saline nasal spray 4 times daily. I also use Sudogest which I have only found at medicine shop in [place]. If you use this do not follow the directions on the box.One tablet 3 times a day is plenty. She could also take some Robitussin DM ( not the other cough cold preparations) right along with the Sudogest. documented in this encounterUniversity of Missouri Children's [id number] History of Present illness Narrative* Holger Severino MD - 07/02/2024 11:30 AM EDT Images from the original note were not [...] daily, orally. cholecalciferol (Vitamin D-3) 250 MCG (78149 UT) tablet Take 10,000 Units by mouth [...] problems if not taken the correct way, ortaken with another drug or food item that [...] 120 mL; Refill: 0 documented in this encounterUniversity of Missouri Children's [id number] Evaluation note* Encounter Date Diagnosis Assessment Notes Treatment Notes Treatment Clinical Notes Nov, COVID-19 (ICD-10 - U07.1) Discharge Instructions for COVID-19 (Suspected or Confirmed ) material was printed Plenty fluids, get plenty of rest. Take Tylenol or Motrin as needed for aches pains or fevers. Follow-up with your family physician if no improvement in 2 to 3 days. You must quarantine for 5 days after the onset of your symptoms of COVID. Nov,cute cough (ICD-10 - R05.1) Nov,lose exposure to COVID-19 virus (ICD-10 - Z20.822) [employer] Other 09-28-2023 Evaluation note* Encounter Date Diagnosis Assessment Notes Treatment Notes Treatment Clinical Notes Jul, Acute sinusitis, unspecified ( D-10 - J01.90) Advise patient that rapid COVID/influenza [...] understanding and is agreeable to treatment plan Jul,old sore (ICD-10 - B00.1) Patient reports history of cold sores, states that this cold sore appeared less than 48 hours ago, indicating antiviral treatment. Advised to take as directed. Follow above treatment plan recommendations Jul,Sore throat (ICD-10 - J02.9) Jul,Suspected COVID-19 virus infection (ICD-10 - Z20.822) [employer] Other Evaluation + Plan note Future Appointments Appointment Date:07/27/2024 01:15:00 PM Scheduled Provider:Salvador Gómez PA-C Location:[facility]Cardiology Clinic Appointment Type:Cardiology Follow Up ([place]) [facility] Evaluation note* Diagnosis Onset Date Resolution Status Bronchitis acute [facility] Work Phone: Evaluation note* Diagnosis Benign essential HTN (CMS/HCC) Mixed dyslipidemia (CMS/HCC) Type 2 diabetes mellitus with hyperglycemia, without long-term current use of insulin (CMS/HCC) Potassium (K) deficiency Hypopotassemia Cigarette smoker Tobacco use disorder Polypharmacy Issue of repeat prescriptions Non morbid obesity due to excess calories [facility] Diagnosis Benign essential HTN (CMS/HCC)- Primary Mixed dyslipidemia (CMS/HCC) Type 2 diabetes mellitus with hyperglycemia, without long-term current use of insulin (CMS/HCC) Cigarette smoker Tobacco use disorder Polypharmacy Issue of repeat prescriptions Non morbid obesity due to excess calories Other infective acute otitis externa of left ear Eustachian tube dysfunction, bilateral [facility]* Diagnosis Upper respiratory tract infection, unspecified type- Primary Acute cough Benign essential HTN (CMS/HCC) Mixed dyslipidemia (CMS/HCC) Type 2 diabetes mellitus with hyperglycemia, without long-term current use of insulin (CMS/HCC) Potassium (K) deficiency Hypopotassemia Cigarette smoker Tobacco use disorder Polypharmacy Issue of repeat prescriptions Non morbid obesity due to excess calories [facility]* Diagnosis Benign essential HTN (CMS/HCC) [facility]* Diagnosis Bronchitis- Primary Bronchitis, not specified as acute or chronic Acute cough Cigarette smoker Tobacco use disorder Polypharmacy Issue of repeat prescriptions [facility]* Diagnosis Closed fracture of one rib of left side with routine healing, subsequent encounter- Primary Encounter for examination following treatment at hospital Closed fracture of one rib of left side with routine healing, subsequent encounter Chest wall pain Painful respiration Viral infection [facility]* Diagnosis Onset Date Resolution Status Admit Date Chest congestion noneactiveMarch 2024 3:04pmSore throatnoneactiveMarch 2024 3:04pm [facility] Work Phone: Evaluation note* Diagnosis Benign essential HTN Type 2 diabetes mellitus with hyperglycemia, without long-term current use of insulin ([facility]) Potassium (K) deficiency Hypopotassemia Mixed dyslipidemia Metabolic syndrome Dysmetabolic Syndrome X Cigarette smoker Tobacco use disorder Non morbid obesity due to excess calories [facility]* Diagnosis Encounter for wellness examination in adult- Primary Advance directive discussed with patient Screening mammogram, encounter for Screening for osteoporosis Special screening for osteoporosis Menopause Symptomatic menopausal or female climacteric states Osteopenia of multiple sites History of hysterectomy Acquired absence of both cervix and uterus H/O bilateral oophorectomy Non morbid obesity due to excess calories Episodic lightheadedness [facility]* Diagnosis Benign essential HTN Mixed dyslipidemia Metabolic syndrome Dysmetabolic Syndrome X Type 2 diabetes mellitus with hyperglycemia, without long-term current use of insulin (HCC) Potassium (K) deficiency Hypopotassemia Non morbid obesity due to excess calories Polypharmacy Issue of repeat prescriptions Cigarette smoker Tobacco use disorder documented in this encounter [facility] Narrative - Reported* Type Description Date Medical History anxiety Medical Historyhigh blood pressureSurgical HistoryT & ASurgical History hysterectomySurgical HistorycholecystectomySurgical HistoryC sectionSurgical Historycarpal tunnel releaseSurgical Historymoved ulnar nerveHospitalization HistorySee Above [employer] Other History general Narrative - Reported* Type Description Date Medical History anxiety Medical Historyhigh blood pressureMedical HistoryBORDER LINE DM TYPE IIMedical HistoryPNEUMONIASurgical HistoryT & ASurgical HistoryhysterectomySurgical HistorycholecystectomySurgical HistoryC sectionSurgical Historycarpal tunnel releaseSurgical Historymoved ulnar nerveHospitalization HistorySee Above [employer] Other Hospital course Narrative No data available for this section [facility] Hospital Discharge instructions No data available for this section [facility] Progress note No data available for this section [facility] Summary Purpose Family History Relationship Condition Age at Onset Recorded Date/T rosario brother Malignant neoplasm Unknown fatherHeart diseaseUnknownDeceasedUnknownParkinson's diseaseUnknownmother Diabetes mellitusUnknownHeart diseaseUnknownHypertensionUnknown Advance Directives Advance Directive Response Recorded Date/ Time Advance Directives No January 25, 2 023 4:04pm Chief Complaint and Reason for Visit Chief Complaint Sore throat, cough Reason for Visit Bronchitis Chief Complaint Admit Date sore throat, swollen lymph nodes January 172024 3:04pm Reason for Visit Admit Date Chest congestion February 04, 2025 3:0 4pm Sore throat February 04, 2025 3:0 4pm Additional Source Comments INFORMATION SOURCE (unrecogn ized section and content) DATE CREATED AUTHOR 12/12/[address] [facility] DATE CREATED AUTHOR AUTHOR'S ORGANIZ ATION 07/13/2022 [facility] DATE CREATED AUTHOR AUTHOR'S ORGANIZ ATION 01/18/2023 [facility] DATE CREATED AUTHOR AUTHOR'S ORGANIZ ATION 04/26/2023 [facility] DATE CREATED AUTHOR AUTHOR'S ORGANIZ ATION 06/25/2024 [facility] DATE CREATED AUTHOR AUTHOR'S ORGANIZ ATION 02/12/2025 [facility] DATE CREATED AUTHOR AUTHOR'S ORGANIZ ATION 07/01/2025 [facility] DATE CREATED AUTHOR AUTHOR'S ORGANIZ ATION 07/10/2025 [facility] EPIC REASON FOR VISIT (unrecogniz ed section and content) ReasonCommentsHypertensionHyperlipidemiaDiabetesReasonCommentsHypertension HyperlipidemiaDiabetesReasonCommentsEaracheReasonCommentsMed Change Request ReasonCommentsURIReasonCommentsRib InjuryReasonCommentsAnnual Exam Patient Care team informatio n (unrecognized section and content) Team Status: Active Member Role Status Dates Holger Severino MD Primary Care Provider Active Team Status: Inactive Member Role Status Dates Holger Severino MD Primary Care Provider Active Start: July 04, 2024 End: July 04Leonardo Sharpe ProviderActiveStart: July 04, 2024 End: July 04, 2024 Team Status: Active Member Role Status Dates Holger Severino MD Primary Care Provider Active Start: July 04, 2024 Leonardo Spence ProviderActiveStart: July 04, 2024 Team MemberRelationshipSpecialtyStart DateEnd Date Holger Severino MD [address] [place] [address] (Fax) PCP - [facility]02/16/21 Holger Severino MD [address] [place] [address] (Fax) PCP - GeneralFamily Medicine04/12/23Team MemberRelationshipSpecialtyStart DateEnd Date Holger Severino MD [address] [place] [address] (Fax) PCP - [facility]02/16/21 Holger Severino MD [address] [place] [address] (Fax) PCP - GeneralFamily Medicine04/12/23Team MemberRelationshipSpecialtyStart DateEnd Date Holger Severino MD [address] [phone] (Fax) PCP - [facility]02/16/21 Holger Severino MD [address] [place] [address] (Fax) PCP - GeneralFamily Medicine04/12/23Team MemberRelationshipSpecialtyStart DateEnd Date Holger Severino MD [address] [place] [address] (Fax) PCP - [facility]02/16/21 Holger Severino MD [address] [place] [address] (Fax) PCP - GeneralFamily Medicine04/12/23Team MemberRelationshipSpecialtyStart DateEnd Date Holger Severino MD [address] [facility] [place] [address] (Fax) PCP - [facility]02/16/21 Holger Severino MD [address] [facility] [place] [address] (Fax) PCP - Generalmily Medicine04/12/23Team MemberRelationshipSpecialtyStart DateEnd Date Holger Severino MD [address] [facility] [place] [address] (Fax) PCP - [facility]02/16/21 Holger Severino MD [address] [facility] [facility] [address] (Fax) [facility]04/12/23Team MemberRelationshipSpecialtyStart DateEnd Date Holger Severino MD [address] [place] [address] (Fax) PCP - [facility]02/16/21 Holger Severino MD [address] [place] [address] (Fax) [facility]04/12/23Team MemberRelationshipSpecialtyStart DateEnd Date Holger Severino MD [address] [place] [address] (Fax) PCP - [facility]02/16/21 Holger Severino MD [address] [place] [address] (Fax) PCP - Generalmily Medicine04/12/23Team MemberRelationshipSpecialtyStart DateEnd Date Holger Severino MD [address] [place] [address] (Fax) PCP - [facility]02/16/21 Holger Severino MD [address] [place] [address] (Fax) PCP - [facility] Medicine04/12/23 Team Status: Inactive Member Role Status Dates Holger Severino MD Primary Care Provider Active Start: February 04, 2025 End: February 04Leonardo Correia ProviderActiveStart: February 04, 2025 End: February 04, 2025 Team Status: Active Member Role Status Dates Holger Severino MD Primary Care Provider Active Start: February 04, 2025 Leonardo Dang ProviderActiveStart: February 04, 2025 Team MemberRelationshipSpecialtyStart DateEnd Date Holger Severino MD [address] [place] [address] (Fax) PCP - [facility]02/16/21 Holger Severino MD [address] [place] [address] (Fax) PCP - [facility] Medicine04/12/23Team MemberRelationshipSpecialtyStart DateEnd Date Holger Severino MD [address] [place] [address] (Fax) PCP - [facility]02/16/21 Holger Severino MD [address] [place] [address] (Fax) PCP - [facility]04/12/23Te MemberRelationshipSpecialtyStart DateEnd Date Holger Severino MD [address] [place] [address] (Fax) PCP - [facility]02/16/21 Holger Severino MD [address] [place] [address] (Fax) PCP - [facility]04/12/23Te MemberRelationshipSpecialtyStart DateEnd Date Holger Severino MD [address] [place] [address] (Fax) [facility] Holger Severino MD [address] [place] [address] (Fax) PCP [facility]04/12/23Te MemberRelationshipSpecialtyStart DateEnd Date Holger Severino MD [address] [place] [address] (Fax) [facility] Holger Severino MD [address] [place] [address] (Fax) PCP - [facility]04/12/23 Goals (unrecognized section and content) Goals may [...] BE BASED ON THE PRIMARY CLINICAL RECORDS. [facility]. provides no warranty or guarantee of the accuracy or completeness of information in this document.
[2025-09-21 19:08] LABS: SARS-CoV-2 Ag POSITIVE (NEGATIVE)
[2025-09-21] MEDS: IPRATROPIUM/ALBUTEROL SULFATE 3 ML AMPUL.NEB IH (19:08)
[2025-09-21 19:09] VITALS: PULSE 69; O2SAT 95
--- NOTE | 2025-09-21 19:12 | PC.NURSE ---
End of shift report given to GENIA Villar
== END 2025-09-21 19:32 | disposition home or self-care (01) ==
PROVIDERS: Emergency Provider Emergency Medicine; PCP Family Medicine
DX: U07.1 COVID-19 (principal); I10 Essential (primary) hypertension; E78.00 Pure hypercholesterolemia, unspecified; J44.9 Chronic obstructive pulmonary disease, unspecified; F17.200 Nicotine dependence, unspecified, uncomplicated
CPT/HCPCS: 71046; 87804; 87811; 94640; 99284; 99285; J7512